=== PATIENT | female | born 1945 | race Caucasian/White ===

== ENCOUNTER 2018-07-25 10:51 | Outpatient (CLI) | payer MEDICARE, SELFPAY ==
--- NOTE | 2018-07-25 11:21 | DI.RAD_ITS ---
SYMPTOMS/DIAGNOSIS: PERSISTENT LT LOW BACK PAIN, PT DIDN'T HELP, ? SCOLIOSIS, ? OA LUMBAR SPINE: AP, lateral and bilateral oblique views. There are five lumbar type vertebral bodies. No spondylolysis or spondylolisthesis is seen. There is a left convex curvature of the lumbar spine centered at L 3. There is disc space narrowing at L 2 - 3, L 3 - 4 and L 5 - S 1. Vacuum discs are seen at L 2 - 3 and L 3 - 4. Degenerative changes of the facets are seen throughout the lumbar spine. No acute fractures or subluxations are seen. IMPRESSION: Moderate degenerative changes in the lumbar spine.
== END 2018-07-25 11:11 ==
PROVIDERS: PCP Nurse Practitioner Family; Visit Provider Nurse Practitioner Family
DX: M54.5 Low back pain (principal); M51.37 Other intervertebral disc degeneration, lumbosacral region
CPT/HCPCS: 72110

== ENCOUNTER 2018-09-04 11:51 | Outpatient (CLI) | payer MEDICARE, SELFPAY ==
[2018-09-04 13:02] LABS: Anion Gap 4.9 mmol/L (3-11); BUN 37 mg/dL (7-18); CO2 34.1 mmol/L (21.0-32.0); CREATININE 1.99 mg/dL (0.55-1.02); Calcium 8.9 mg/dL (8.5-10.1); Chloride 106 mmol/L (98-107); Glucose 86 mg/dL (70-100); Potassium 4.6 mmol/L (3.5-5.1); Sodium 145 mmol/L (136-145)
== END 2018-09-04 12:11 ==
PROVIDERS: PCP Nurse Practitioner Family; Visit Provider Nurse Practitioner Family
DX: F32.9 Major depressive disorder, single episode, unspecified (principal); N18.9 Chronic kidney disease, unspecified; R73.01 Impaired fasting glucose; E78.5 Hyperlipidemia, unspecified; E05.90 Thyrotoxicosis, unspecified without thyrotoxic crisis or storm
CPT/HCPCS: 36415; 80048

== ENCOUNTER 2018-09-20 14:55 | Outpatient (REF) | payer MEDICARE, SELFPAY ==
[2018-09-20 19:34] LABS: COMMENT (LAB VIEW ONLY) 144.31 mg/dL; Microalb ug/mg Crea 9.2 ug/mg Cr
== END 2018-09-20 15:15 ==
LOC: LBN 14:55
PROVIDERS: PCP Nurse Practitioner Family; Visit Provider Nurse Practitioner Family
DX: R30.0 Dysuria (principal); N18.9 Chronic kidney disease, unspecified
CPT/HCPCS: 82043; 82570; 87086

== ENCOUNTER 2019-02-28 11:53 | Outpatient (CLI) | payer MEDICARE, SELFPAY ==
[2019-02-28 12:31] LABS: Absolute Basophil Count 0.04 k/cumm (0.0-0.2); Absolute Eosinophil Count 0.25 k/cumm (0.0-0.7); Absolute Lymphocyte Count 1.11 k/cumm (1.2-3.4); Absolute Monocyte Count 0.35 k/cumm (0.11-0.7); Absolute Neutrophil Count 2.15 k/cumm (1.2-6.7); Eosinophils % 6.4; HCT 40.6 % (36.0-46.0); HGB 12.4 g/dL (12.0-15.5); Lymphocytes % 28.5; Mean Corp. HGB Concentration 30.5 g/dL (32.0-36.0); Mean Corpuscular Hemoglobin 31.7 pg (27.0-33.0); Mean Corpuscular Volume 103.8 fL (80-95); Mean Platelet Volume 9.8 fL (8.0-11.0); Neutrophils % 55.1; Platelet Count 160 x1000/uL (130-400); RBC 3.91 m/cumm (4.00-5.20); RBC Distribution Width 12.4 % (11.7-14.6)
[2019-02-28 13:40] LABS: ALT 20 U/L (12-78); AST 23 U/L (15-37); Albumin 3.6 g/dL (3.4-5.0); Alkaline Phosphatase 93 U/L (46-116); Anion Gap 4.2 mmol/L (3-11); BUN 41 mg/dL (7-18); Bilirubin, Total 1.1 mg/dL (0.2-1.0); CO2 30.8 mmol/L (21.0-32.0); CREATININE 2.18 mg/dL (0.55-1.02); Chloride 106 mmol/L (98-107); Cholesterol 174 mg/dL (50-200); Estimated GFR 22.05 (mL/min/1.73m2); Glucose 87 mg/dL (70-100); HDL Cholesterol 80 mg/dL (40-60); LDL CHOLESTEROL 80 mg/dL (<100); Sodium 141 mmol/L (136-145); TSH (W/Ref FT4) 0.25 uIU/mL (0.358-3.74); Total Protein 6.2 g/dL (6.4-8.2); Triglyceride 53 mg/dL (30-150)
[2019-02-28 13:47] LABS: Potassium 6.5 mmol/L (3.5-5.1)
[2019-02-28 14:04] LABS: FREE T4 1.17 ng/dL (0.76-1.46)
== END 2019-02-28 12:13 ==
PROVIDERS: PCP Nurse Practitioner Family; Visit Provider Nurse Practitioner Family
DX: E78.5 Hyperlipidemia, unspecified (principal); R73.01 Impaired fasting glucose; N18.9 Chronic kidney disease, unspecified; E05.90 Thyrotoxicosis, unspecified without thyrotoxic crisis or storm
CPT/HCPCS: 36415; 80053; 80061; 83721; 83036; 84439; 84443; 85025

== ENCOUNTER 2019-03-04 11:17 | Outpatient (CLI) | payer MEDICARE, SELFPAY ==
[2019-03-04 12:37] LABS: Anion Gap 4.9 mmol/L (3-11); BUN 36 mg/dL (7-18); CO2 31.1 mmol/L (21.0-32.0); CREATININE 1.92 mg/dL (0.55-1.02); Calcium 9.1 mg/dL (8.5-10.1); Chloride 106 mmol/L (98-107); Estimated GFR 25.53 (mL/min/1.73m2); Glucose 122 mg/dL (70-100); Potassium 5.4 mmol/L (3.5-5.1); Sodium 142 mmol/L (136-145)
== END 2019-03-04 11:37 ==
PROVIDERS: PCP Nurse Practitioner Family; Visit Provider Nurse Practitioner Adult Health
DX: E87.5 Hyperkalemia (principal); N17.9 Acute kidney failure, unspecified
CPT/HCPCS: 36415; 80048

== ENCOUNTER 2019-03-11 11:33 | Outpatient (CLI) | payer MEDICARE, SELFPAY ==
[2019-03-11 14:00] LABS: Anion Gap 5.6 mmol/L (3-11); BUN 33 mg/dL (7-18); CO2 30.4 mmol/L (21.0-32.0); CREATININE 1.84 mg/dL (0.55-1.02); Calcium 8.8 mg/dL (8.5-10.1); Chloride 106 mmol/L (98-107); Estimated GFR 26.82 (mL/min/1.73m2); Glucose 92 mg/dL (70-100); Potassium 5.1 mmol/L (3.5-5.1); Sodium 142 mmol/L (136-145)
== END 2019-03-11 11:53 ==
PROVIDERS: PCP Nurse Practitioner Family; Visit Provider Family Medicine
DX: N18.9 Chronic kidney disease, unspecified (principal)
CPT/HCPCS: 36415; 80048

== ENCOUNTER 2019-08-01 15:09 | Inpatient (IN) | payer MEDICARE, SELFPAY ==
[2019-08-01] VITALS (52 sets, daily range): BP systolic 130–155; BP diastolic 73–92; PULSE 67–98; RESP 16–32; TEMP 36.1–37.4; O2SAT 83–100
[2019-08-01 15:24] LABS: Abs Immature Grans 0.01 k/cumm (0.0-0.09); Absolute Basophil Count 0.04 k/cumm (0.0-0.2); Absolute Eosinophil Count 0.09 k/cumm (0.0-0.7); Absolute Lymphocyte Count 0.58 k/cumm (1.2-3.4); Absolute Monocyte Count 0.65 k/cumm (0.11-0.7); Basophils % 0.8; Eosinophils % 1.7; HCT 45.7 % (36.0-46.0); HGB 13.4 g/dL (12.0-15.5); Immature Grans % 0.2; Mean Corp. HGB Concentration 29.3 g/dL (32.0-36.0); Mean Corpuscular Hemoglobin 29.3 pg (27.0-33.0); Mean Platelet Volume 9.1 fL (8.0-11.0); Monocytes % 12.3; Platelet Count 231 x1000/uL (130-400); RBC 4.57 m/cumm (4.00-5.20); RBC Distribution Width 15.2 % (11.7-14.6); White Blood Cell Count 5.27 k/cumm (4.4-10.8)
[2019-08-01] MEDS: Albuterol/Ipratropium 3 ML UPD VIAL UPD ×2 (16:00→22:59)
[2019-08-01] MEDS: methylPREDNISolone SUCC 125 MG VIAL IVP (16:05)
[2019-08-01] MEDS: Furosemide 40 MG/4 ML VIAL IVP (16:30)
[2019-08-01 16:36] LABS: AST 24 U/L (15-37); Albumin 3.3 g/dL (3.4-5.0); Alkaline Phosphatase 91 U/L (46-116); Anion Gap 7.1 mmol/L (3-11); BUN 28 mg/dL (7-18); Bilirubin, Total 0.8 mg/dL (0.2-1.0); CO2 31.9 mmol/L (21.0-32.0); CREATININE 1.74 mg/dL (0.55-1.02); Calcium 8.6 mg/dL (8.5-10.1); Chloride 101 mmol/L (98-107); Estimated GFR 28.52 (mL/min/1.73m2); Glucose 101 mg/dL (70-100); Potassium 4.6 mmol/L (3.5-5.1); Sodium 140 mmol/L (136-145); Total Protein 6.8 g/dL (6.4-8.2)
[2019-08-01 16:41] LABS: Troponin I < 0.05 ng/mL (0.00-0.06)
[2019-08-01 16:49] LABS: ALT 10 U/L (14-59)
--- NOTE | 2019-08-01 17:23 | DI.RAD_ITS ---
EXAM: XR CHEST 2V PA LATERAL INDICATION: sob, leg swelling, r/o chf/pneumonia. COMPARISON: CHEST 2 VIEWS PA,LAT from 07/28/2013 TECHNIQUE: 2D digital imaging was performed. FINDINGS: Examination is compared with most recent film of August 01. There is interval development of bila teral pleural effusions and mild bilateral diffuse intrapulmonary interstitial radiodensities. Findi ngs are consistent with interval development of CHF. IMPRESSION:
[2019-08-01 17:46] LABS: NT-proBNP 16443 pg/mL
--- NOTE | 2019-08-01 17:47 | W.ED.GENAD ---
Discharge Plan Disposition Patient Disposition: [facility] INPATIENT Condition: Stable Discharge Details Chief Complaint: Chest Pain Clinical Impression: Acute exacerbation of CHF (congestive heart failure), Acute exacerbation of chronic obstructive pulmonary disease (COPD) Primary Care Provider: Camila Osuna ED Provider: Tania Escamilla Home Meds and New Rx's Prescriptions: No Action citalopram 10 mg tablet 10 mg PO DAILY Qty: 90 RF: 3 mirtazapine 7.5 mg tablet 7.5 mg PO HS Qty: 90 RF: 3 levalbuterol tartrate [Xopenex HFA] 15 GM HFA aerosol inhaler 1 - 2 puff Inhalation Q4H PRN Qty: 1 RF: 1 lidocaine [LC-5] 45 GM cream 1 film Topical 2-4 times daily PRN Qty: 1 RF: 3 atenolol 25 mg tablet 25 mg PO DAILY Qty: 90 RF: 3 Symbicort 160-4.5 mcg/actuation HFA aerosol inhaler 2 puff Inhalation BID Qty: 3 RF: 3 Incruse Ellipta 62.5 mcg/actuation blister with device 1 inh Inhalation DAILY Qty: 3 RF: 3 atorvastatin 10 mg tablet 10 mg PO DAILY Qty: 90 RF: 3 Medical Decision Making 1545 -- 74yo F who presents to the ED with a complaint of shortness of breath for the past month, worse today and associated with bilateral leg swelling for the past 2 weeks. O2 sat in the 60s at PCP office on room air and increased to 90s on nasal cannula. O2 sat 84% on room air on arrival, increased to mid 90s on 4 L of O2. EKG on arrival notes a rate of 77, sinus, no acute ST ischemic changes. She has scattered wheezing throughout and crackles in the bases bilaterally. She has 2+ pitting lower extremity edema. Patient briefly took off her nasal cannula and her O2 decreased to the 60s, increased back up to 97% on 2 L. Differential diagnosis includes acute CHF, acute COPD, pneumonia, bronchitis. Presentation and history not consistent with PE or dissection. Will place an IV, check screening labs, chest x-ray and give a dose of Lasix, DuoNeb and Solu-Medrol. 1730 -- Labs reviewed and note white blood cell count normal at 5, normal electrolytes, chronic kidney disease, [place] [address]. Chest x-ray notes bilateral increased pleural markings consistent with CHF. Patient admits to some improvement in her shortness of breath. 1800 -- Case discussed with Dr. Castorena-accepts patient for admission. Medical Records Medical records reviewed: Yes I reviewed the patient's medical records. Imaging Data Radiologic Study: Radiologist's impression: XR Chest, 2 Views Exam date and time: 08/01/2019 6:10 PM Clinical history: 74 years old, female; Other: SOB, leg swollen, R/O chf/pneumonia TECHNIQUE: Imaging protocol: XR of the chest Views: 2 views. COMPARISON: CR CHEST 2 VIEWS PA,LAT 07/28/2013 3:20 PM FINDINGS: Lungs: There is hyperinflation lungs and flattening hemidiaphragms which is also present in July 2013 however there is new blunting of the left costophrenic angle and to a lesser extent right costophrenic angle. There are mild diffuse increased interstitial markings bilaterally most prominent at the right lung base. Pleural space: Symmetric apical pleural thickening. Heart/Mediastinum: Unremarkable. No cardiomegaly. Vasculature: Mild atherosclerosis of the thoracic aorta. Bones/joints: Unremarkable. IMPRESSION: Mild pulmonary edema superimposed on COPD Lab Data Lab results reviewed: Yes I reviewed the patient's lab results. Labs: Laboratory Tests Range/Units 08/01/19 08/01/19 08/01/19 15:17 15:17 15:17 WBC (4.4-10.8) k/cumm 5.27 RBC (4.00-5.20) m/cumm 4.57 Hgb (12.0-15.5) g/dL 13.4 Hct (36.0-46.0) % 45.7 MCV (80-95) fL 100.0 H MCH (27.0-33.0) pg 29.3 MCHC (32.0-36.0) g/dL 29.3 L RDW (11.7-14.6) % 15.2 H Plt Count (130-400) x1000/uL 231 MPV (8.0-11.0) fL 9.1 Immature Gran % 0.2 Neutrophils % 74.0 Lymphocytes % 11.0 Monocytes % 12.3 Eosinophils % 1.7 Basophils % 0.8 Absolute Neutrophils (1.2-6.7) k/cumm 3.90 Absolute Lymphocytes (1.2-3.4) k/cumm 0.58 L Absolute Monocytes (0.11-0.7) k/cumm 0.65 Absolute Eosinophils (0.0-0.7) k/cumm 0.09 Absolute Basophils (0.0-0.2) k/cumm 0.04 Sodium (136-145) mmol/L 140 Potassium (3.5-5.1) mmol/L 4.6 Chloride (98-107) mmol/L 101 Carbon Dioxide (21.0-32.0) mmol/L 31.9 Anion Gap (3-11) mmol/L 7.1 BUN (7-18) mg/dL 28 H Creatinine (0.55-1.02) mg/dL 1.74 H Estimated GFR/1.73 m2 (mL/min/1.73m2) 28.52 Glucose (70-100) mg/dL 101 H Calcium (8.5-10.1) mg/dL 8.6 Magnesium (1.8-2.4) mg/dL 2.0 Total Bilirubin (0.2-1.0) mg/dL 0.8 AST (15-37) U/L 24 ALT (14-59) U/L 10 L Alkaline Phosphatase (46-116) U/L 91 Troponin I (0.00-0.06) ng/mL < 0.05 NT-Pro-B Natriuret Pep ( - 299) pg/mL 79583 H Total Protein (6.4-8.2) g/dL 6.8 Albumin (3.4-5.0) g/dL 3.3 L Range/Units 08/01/19 18:50 WBC (4.4-10.8) k/cumm RBC (4.00-5.20) m/cumm Hgb (12.0-15.5) g/dL Hct (36.0-46.0) % MCV (80-95) fL MCH (27.0-33.0) pg MCHC (32.0-36.0) g/dL RDW (11.7-14.6) % Plt Count (130-400) x1000/uL MPV (8.0-11.0) fL Immature Gran % Neutrophils % Lymphocytes % Monocytes % Eosinophils % Basophils % Absolute Neutrophils (1.2-6.7) k/cumm Absolute Lymphocytes (1.2-3.4) k/cumm Absolute Monocytes (0.11-0.7) k/cumm Absolute Eosinophils (0.0-0.7) k/cumm Absolute Basophils (0.0-0.2) k/cumm Sodium (136-145) mmol/L Potassium (3.5-5.1) mmol/L Chloride (98-107) mmol/L Carbon Dioxide (21.0-32.0) mmol/L Anion Gap (3-11) mmol/L BUN (7-18) mg/dL Creatinine (0.55-1.02) mg/dL Estimated GFR/1.73 m2 (mL/min/1.73m2) Glucose (70-100) mg/dL Calcium (8.5-10.1) mg/dL Magnesium (1.8-2.4) mg/dL Total Bilirubin (0.2-1.0) mg/dL AST (15-37) U/L ALT (14-59) U/L Alkaline Phosphatase (46-116) U/L Troponin I (0.00-0.06) ng/mL < 0.05 NT-Pro-B Natriuret Pep ( - 299) pg/mL Total Protein (6.4-8.2) g/dL Albumin (3.4-5.0) g/dL ECG Data Attestation: I personally reviewed and interpreted this ECG (s) as follows: Interpretation: Rate of 77, sinus, T wave inversion in V2, no acute ST elevation or depression. MN 152. QTc 410. QRS 94. HPI General Mode of arrival: ambulatory. Date/Time Provider Initiated Documentation: 08/01/19 15:24. Limitations to Documentation: no limitations. Information obtained by: patient. HPI Narrative: Patient is a 74-year-old female with a history of COPD, CKD, depression, hypertension, hyperlipidemia, hypothyroidism who presents with a complaint of shortness of breath for the past month, worse today. Patient saw her PCP today for the symptoms and was sent to the ER for further evaluation when she was noted to have O2 sats in the 60s on room air. Patient also admits to bilateral lower extremity swelling for the past 2 weeks. She states her shortness of breath is worse with any exertion. She states she has required multiple pillows when sleeping at night for years and states is no different than usual. She states she is not on home oxygen. She denies any known fever but does admit to chills. She does admit to occasional anterior chest pain but denies any at present. She denies any cough but does also admit to decreased p.o. intake. Related Data Home Medications Medication Instructions Recorded Confirmed levalbuterol tartrate [Xopenex HFA] 1 - 2 puff INHALATION Q4H PRN #1 08/16/15 08/01/19 inhaler lidocaine [Lc-5] 1 film TOPICAL 2-4 times daily PRN 06/20/18 08/01/19 #1 tube mirtazapine 7.5 mg tablet 7.5 mg PO HS #90 tab-cap 09/04/18 08/01/19 atenolol 25 mg tablet 25 mg PO DAILY #90 tab-cap 09/20/18 08/01/19 budesonide-formoterol HFA 160 2 puff INHALATION BID #3 inhaler 09/20/18 08/01/19 mcg-4.5 mcg/actuation aerosol inhaler umeclidinium 62.5 mcg/actuation 1 inh INHALATION DAILY #3 each 09/20/18 08/01/19 blister powder for inhalation atorvastatin 10 mg tablet 10 mg PO DAILY #90 tab-cap 01/06/19 08/01/19 citalopram 10 mg tablet 10 mg PO DAILY #90 tab-cap 03/20/19 08/01/19 Previous Rx's Medication Instructions Recorded lidocaine [Lc-5] 1 film TOPICAL 2-4 times daily PRN 06/20/18 #1 tube mirtazapine 7.5 mg tablet 7.5 mg PO HS #90 tab-cap 09/04/18 atenolol 25 mg tablet 25 mg PO DAILY #90 tab-cap 09/20/18 budesonide-formoterol HFA 160 2 puff INHALATION BID #3 inhaler 09/20/18 mcg-4.5 mcg/actuation aerosol inhaler umeclidinium 62.5 mcg/actuation 1 inh INHALATION DAILY #3 each 09/20/18 blister powder for inhalation atorvastatin 10 mg tablet 10 mg PO DAILY #90 tab-cap 03/18/19 citalopram 10 mg tablet 10 mg PO DAILY #90 tab-cap 03/20/19 Allergies Allergy/AdvReac Type Severity Reaction Status Date / Time No Known Allergies Allergy Verified 08/01/19 15:17 General Stated Complaint: Chest Pain JOSE MIGUEL: 2 Review of Systems Review of Systems ROS Unobtainable: All systems reviewed & are unremarkable except as noted in HPI and below Constitutional Constitutional: Reports as per HPI, Denies chills and Denies fever(s) Eyes Eyes: Denies blurry vision ENT Ears, Nose, Mouth, and Throat: Denies dizziness, Denies sore throat and Denies throat swelling Cardiovascular Cardiovascular: Reports chest pain and Reports dyspnea Respiratory Respiratory: Denies cough and Reports dyspnea Gastrointestinal Gastrointestinal: Denies abdominal pain, Denies diarrhea and Denies vomiting Genitourinary Genitourinary: Denies hematuria and Denies dysuria Musculoskeletal Musculoskeletal: Denies back pain and Denies numbness Integumentary/Breasts Skin/Breast: Denies lesions and Denies rash Neurologic Neurologic: Denies dizziness, Denies focal weakness and Denies numbness Allergic/Immunologic Allergic/Immunologic: Denies throat swelling [facility] Medical History Chronic kidney disease (Chronic 10/05/16) 02/2019: low-dose SAWYER-I caused hyperkalemia --> d/c'ed! 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 Heart disease Father , HF at age 77. Heart disease Sister Heart disease During childhood only? Brother , SD at age 75. Heart disease Prostate cancer Brother Heart disease Social History Smoking/Tobacco Use Status: Former Tobacco Use Alcohol Intake: current Alcohol Intake frequency: holidays/special occasions only Drug use: Never Substance use type: does not use Adopted: No Caregiver/Support person: No Foster care: No Household members: none Housing: house Communication Needs: None Pets and animals: No Sexually active: No Current gender identity: female What type of physical activity do you participate in: none Seatbelt use: always Do you feel safe at home: Yes Do you feel safe in your relationship?: Yes Exam Const General: cooperative, healthy appearing and no acute distress HENMT Head: normal to inspection Face and sinus: normal facial exam Eyes General: appearance normal, both eyes and all related structures EOM: EOM intact bilaterally Neck Neck: normal visual inspection and No submandibular swelling Lymphatic: no lymphadenopathy noted Chest Chest: normal inspection of the chest and no tenderness Resp Effort & Inspection: normal respiratory effort and able to speak in complete sentences Auscultation: crackles bilaterally at the base Cardio Rate: regular rate Rhythm: regular rhythm GI Inspection: normal to inspection Palpation: soft, not firm, not rigid and nontender Auscultation: normal bowel sounds Back/Spine/Pelvis Thoracic/Lumbar Spine: thoracic and lumbar spine normal to inspection Skin General skin exam: no rashes or lesions noted Neuro General: alert, awake and oriented x3 Cognition: normal cognition Speech: speech normal Motor: muscle tone normal throughout Sensory Exam: no sensory deficits noted Extrem General: normal to inspection, full ROM, normal capillary refill, no calf tenderness bilaterally and edema Laterality: bilateral (2+ pitting) Psych Appearance: grossly normal Mental Status: mental status grossly normal Speech and Movement: speech and movement normal Affect: normal affect Course Vital Signs Vital signs: Vital Signs Temperature 99.3 F 08/01/19 15:13 Pulse 76 08/01/19 15:13 Respiratory Rate 26 H 08/01/19 15:13 Blood Pressure 151/90 H 08/01/19 15:13 Pulse Oximetry 84 L 08/01/19 15:13 Temperature 99.3 F 08/01/19 15:13 Temperature Source Temporal Artery Scan 08/01/19 15:13 Pulse 76 08/01/19 15:13 Respiratory Rate 26 H 08/01/19 15:13 Respiratory Effort Labored 08/01/19 15:19 Blood Pressure 151/90 H 08/01/19 15:13 Blood Pressure Position Sitting 08/01/19 15:13 Pulse Oximetry 84 L 08/01/19 15:13 Oxygen Delivery Method Nasal Cannula 08/01/19 15:13 Oxygen Flow Rate 3 08/01/19 15:13 Pain Level 0 08/01/19 15:13 Comment 08/01/19 15:13 Lab/Test Results Lab/Test Results: Laboratory Tests Range/Units 08/01/19 08/01/19 08/01/19 15:17 15:17 15:17 WBC (4.4-10.8) k/cumm 5.27 RBC (4.00-5.20) m/cumm 4.57 Hgb (12.0-15.5) g/dL 13.4 Hct (36.0-46.0) % 45.7 MCV (80-95) fL 100.0 H MCH (27.0-33.0) pg 29.3 MCHC (32.0-36.0) g/dL 29.3 L RDW (11.7-14.6) % 15.2 H Plt Count (130-400) x1000/uL 231 MPV (8.0-11.0) fL 9.1 Immature Gran % 0.2 Neutrophils % 74.0 Lymphocytes % 11.0 Monocytes % 12.3 Eosinophils % 1.7 Basophils % 0.8 Absolute Neutrophils (1.2-6.7) k/cumm 3.90 Absolute Lymphocytes (1.2-3.4) k/cumm 0.58 L Absolute Monocytes (0.11-0.7) k/cumm 0.65 Absolute Eosinophils (0.0-0.7) k/cumm 0.09 Absolute Basophils (0.0-0.2) k/cumm 0.04 Sodium (136-145) mmol/L 140 Potassium (3.5-5.1) mmol/L 4.6 Chloride (98-107) mmol/L 101 Carbon Dioxide (21.0-32.0) mmol/L 31.9 Anion Gap (3-11) mmol/L 7.1 BUN (7-18) mg/dL 28 H Creatinine (0.55-1.02) mg/dL 1.74 H Estimated GFR/1.73 m2 (mL/min/1.73m2) 28.52 Glucose (70-100) mg/dL 101 H Calcium (8.5-10.1) mg/dL 8.6 Magnesium (1.8-2.4) mg/dL 2.0 Total Bilirubin (0.2-1.0) mg/dL 0.8 AST (15-37) U/L 24 ALT (14-59) U/L 10 L Alkaline Phosphatase (46-116) U/L 91 Troponin I (0.00-0.06) ng/mL < 0.05 NT-Pro-B Natriuret Pep ( - 299) pg/mL 20653 H Total Protein (6.4-8.2) g/dL 6.8 Albumin (3.4-5.0) g/dL 3.3 L
--- NOTE | 2019-08-01 17:51 | NUR.NOTE ---
Nursing Note: pt noted to have oxygen saturation of 82% on 1lpm. increased o2 to 2lpm.
--- NOTE | 2019-08-01 18:15 | DI.VRAD_ITS ---
PROCEDURE INFORMATION: Exam: XR Chest, 2 Views Exam date and time: 08/01/2019 6:10 PM Clinical history: 74 years old, female; Other: SOB, leg swollen, R/O chf/pneumonia TECHNIQUE: Imaging protocol: XR of the chest Views: 2 views. COMPARISON: CR CHEST 2 VIEWS PA,LAT 07/28/2013 3:20 PM FINDINGS: Lungs: There is hyperinflation lungs and flattening hemidiaphragms which is also present in July 2013 however there is new blunting of the left costophrenic angle and to a lesser extent right costophrenic angle. There are mild diffuse increased interstitial markings bilaterally most prominent at the right lung base. Pleural space: Symmetric apical pleural thickening. Heart/Mediastinum: Unremarkable. No cardiomegaly. Vasculature: Mild atherosclerosis of the thoracic aorta. Bones/joints: Unremarkable. IMPRESSION: Mild pulmonary edema superimposed on COPD Dictated and Authenticated by: Tavo Trivedi MD. Ordering:BRANDIE Marin MD
[2019-08-01 19:25] LABS: Troponin I < 0.05 ng/mL (0.00-0.06)
--- NOTE | 2019-08-01 22:17 | HPE_ITS ---
Date of service: 08/01/19 Time of Service: 22:17 Assessment and Plan Assessment and plan (1) Acute congestive heart failure: Status: Acute Assessment and plan: Continue to cycle her troponin levels. We will continue with IV Lasix and monitor her proBNP and BMP and urine output. We will get a formal echocardiogram on Sunday. It appears that her congestive heart failure is more right-sided heart failure probably due to cor pulmonale from her COPD but we have not excluded possible PE. Qualifiers: Heart failure type: right-sided Qualified Code(s): I50.811 - Acute right heart failure (2) Chronic obstructive lung disease: Status: Chronic Assessment and plan: Treat her COPD with aerosolized bronchodilators and IV corticosteroids. (3) Chronic kidney disease: Status: Chronic Assessment and plan: Monitor renal function as the patient is diuresed. Avoid nephrotoxins. CT angiogram of the chest is contraindicated for her degree of renal failure for that reason we will obtain an ultrasound of her legs in the morning and an echocardiogram on Sunday. Could consider a ventilation/perfusion lung scan but I think is good to be read as indeterminate. Qualifiers: Chronic kidney disease stage: unspecified stage Qualified Code(s): N18.9 - Chronic kidney disease, unspecified (4) Elevated d-dimer: Status: Acute Assessment and plan: Begin heparin drip. Check formal venous duplex ultrasound of her legs in the a.m. History of Present Illness History of Present Illness Chief Complaint: dyspnea Narrative: 74-year-old C aucasian female former smoker with a history of COPD who has not required home oxygen as of yet. Comes in with 2-week history of bilateral leg edema and worsening exertional dyspnea. States about a month ago she thought she had a bad case of flu but denies any cough at that time but just felt fatigued weak and out of breath not associated with any chest pain. Since that time her dyspnea has become progressive to the point where minimal ADL performance we will get her out of breath. She sleeps on 2 pillows regularly but lately has been having paroxysmal nocturnal dyspnea and orthopnea. Is been no fever and no rigors but some subjective feeling of chills. Evaluation emergency room included a routine PA and lateral chest x-ray that showed some mild pulmonary edema superimposed on COPD she has hyperinflated lungs with flattening of the diaphragms and new blunting left costophrenic angle and to a lesser degree the right costophrenic angle with some mild increased interstitial markings. ECG demonstrates sinus rhythm rate of 77 bpm with an RSR prime pattern in V1 and V2 as well as evidence of right atrial enlargement with a P pulmonale pattern in limb leads II, III and aVF. There are no acute ischemic ST or T wave changes. Routine labs including CBC showed a normal white count of 5200 no anemia although she has macrocytic changes with an MCV of 100 normal platelet count. BMP showed elevated BUN and creatinine of 28 and 1.74 which appears to be her baseline. Glucose was elevated at 101. LFTs were normal troponins were negative x3 sets. proBNP is elevated at 16,443. A d- dimer has since been ordered and found to be elevated at 2100. Treatment in the emergency room included a dose of Lasix 40 mg IV along with Solu-Medrol 125 mg IV and DuoNeb aerosol treatments. Patient is being admitted to medical/surgical floor on telemetry for further evaluation of acute onset of CHF superimposed with chronic obstructive pulmonary disease as well as evaluate for possible pulm onary embolus. Bedside acopw-eq-mhdn ultrasound was performed LV function appears to be normal to slightly hyperdynamic. RV appears to be dilated as does the right atrium with some mild RV dysfunction. Lung scan demonstrates an interstitial lung pattern with no consolidation and no pleural effusions. Venous ultrasound of her legs shows compressibility in the common femoral, superficial femoral, deep femoral and greater saphenous, although I could not identify her popliteals. [facility] Medical History Chronic kidney disease (Chronic 10/05/16) 02/2019: low-dose SAWYER-I caused hyperkalemia --> d/c'ed! 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 Heart disease Father , HF at age 77. Heart disease Sister Heart disease During childhood only? Brother , ME at age 75. Heart disease Prostate cancer Brother Heart disease Social History Smoking/Tobacco Use Status: Former Tobacco Use Alcohol Intake: current Alcohol Intake frequency: holidays/special occasions only Drug use: Never Substance use type: does not use Adopted: No Caregiver/Support person: No Foster care: No Household members: none Housing: house Communication Needs: None Pets and animals: No Sexually active: No Current gender identity: female What type of physical activity do you participate in: none Seatbelt use: always Do you feel safe at home: Yes Do you feel safe in your relationship?: Yes Meds Home Medications and Allergies Home Medications Medication Instructions Recorded Confirmed Type levalbuterol tartrate [Xopenex HFA] 1 - 2 puff INHALATION Q4H PRN #1 08/16/15 08/01/19 History inhaler lidocaine [Lc-5] 1 film TOPICAL 2-4 times daily PRN 06/20/18 08/01/19 Rx #1 tube mirtazapine 7.5 mg tablet 7.5 mg PO HS #90 tab-cap 09/04/18 08/01/19 Rx atenolol 25 mg tablet 25 mg PO DAILY #90 tab-cap 09/20/18 08/01/19 Rx budesonide-formoterol HFA 160 2 puff INHALATION BID #3 inhaler 09/20/18 08/01/19 Rx mcg-4.5 mcg/actuation aerosol inhaler umeclidinium 62.5 mcg/actuation 1 inh INHALATION DAILY #3 each 09/20/18 08/01/19 Rx blister powder for inhalation atorvastatin 10 mg tablet 10 mg PO DAILY #90 tab-cap 01/06/19 08/01/19 Rx citalopram 10 mg tablet 10 mg PO DAILY #90 tab-cap 03/20/19 08/01/19 Rx Allergies Allergy/AdvReac Type Severity Reaction Status Date / Time No Known Allergies Allergy Verified 08/01/19 15:17 Exam Const General: cooperative, no acute distress and well groomed Nutritional Appearance: average body habitus Orientation: alert, awake and oriented x3 [facility] Head: normal to inspection, no palpable skull fracture, normocephalic and atraumatic Ears: hearing grossly normal bilaterally Face and sinus: normal facial exam Mouth: oral mucosae normal Eyes General: appearance normal, both eyes and all related structures Alignment and Position: alignment normal Periorbital: periorbital findings normal Eyelids: eyelids normal Conjunctivae: conjunctivae normal Sclera: sclerae normal Cornea: corneas normal Pupils: PERRL EOM: EOM intact bilaterally Neck Neck: normal visual inspection, full ROM, no lymphadenopathy, trachea midline, supple and JVD (7 cm) Thyroid: thyroid normal Lymphatic: no lymphadenopathy noted Chest Chest: normal inspection of the chest and normal palpation of entire chest wall Resp Effort & Inspection: normal respiratory effort and able to speak in complete sentences Auscultation: rales bilaterally at the base, no rhonchi, no wheezes and no rubs Tactile Fremitus: tactile fremitus absent Cardio Jugular venous pressure: JVD elevated and to the level of the angle of the jaw Palpation: normal PMI Rate: regular rate Rhythm: regular rhythm Heart Sounds: S1 normal, S2 normal, abnormal opening sounds loud S2, gallop S3 gallop, no murmurs and no rubs Pulses: normal peripheral pulses GI Inspection: normal to inspection Palpation: soft and hepatomegaly Percussion: normal to percussion Auscultation: normal bowel sounds Skin Rashes: other (Bilateral stasis dermatitis changes over both pretibial surfaces) Neuro General: alert, awake, oriented x3, moves all extremities and no focal motor deficits Cranial Nerves: CN's II-XI intact bilaterally and EOM intact bilaterally Cognition: normal cognition Speech: speech normal Motor: muscle tone normal throughout, strength 5/5 throughout and no movement abnormalities noted Sensory Exam: no sensory deficits noted Extrem General: full ROM, normal capillary refill, no calf tenderness and edema Laterality: bilateral (3+) Right lower extremity: edema (up to the thigh) Details: pitting and 3+ Left lower extremity: edema (up to the thigh) Details: pitting and 3+ Psych Appearance: grossly normal and well kempt Mental Status: mental status grossly normal Speech and Movement: speech and movement normal Mood: congruent mood Affect: normal affect Attitude: cooperative Thought Process: normal Thought Content: normal Insight: insight good Judgment: judgment good Results Imaging Chest x-ray: image reviewed (IMPRESSION: Mild pulmonary edema superimposed on COPD Dictated and Authenticated by: Tavo Trivedi MD.) EKG: image reviewed Labs Result diagrams: 08/01/19 15:17 08/01/19 15:17 Labs: Laboratory Results - last 24 hr 08/01/19 08/01/19 08/01/19 15:17 15:17 15:17 WBC 5.27 RBC 4.57 Hgb 13.4 Hct 45.7 MCV 100.0 H MCH 29.3 MCHC 29.3 L RDW 15.2 H Plt Count 231 MPV 9.1 Immature Gran % 0.2 Neutrophils % 74.0 Lymphocytes % 11.0 Monocytes % 12.3 Eosinophils % 1.7 Basophils % 0.8 Absolute Neutrophils 3.90 Absolute Lymphocytes 0.58 L Absolute Monocytes 0.65 Absolute Eosinophils 0.09 Absolute Basophils 0.04 Sodium 140 Potassium 4.6 Chloride 101 Carbon Dioxide 31.9 Anion Gap 7.1 BUN 28 H Creatinine 1.74 H Estimated GFR/1.73 m2 28.52 Glucose 101 H Calcium 8.6 Magnesium 2.0 Total Bilirubin 0.8 AST 24 ALT 10 L Alkaline Phosphatase 91 Troponin I < 0.05 NT-Pro-B Natriuret Pep 97749 H Total Protein 6.8 Albumin 3.3 L 08/01/19 18:50 WBC RBC Hgb Hct MCV MCH MCHC RDW Plt Count MPV Immature Gran % Neutrophils % Lymphocytes % Monocytes % Eosinophils % Basophils % Absolute Neutrophils Absolute Lymphocytes Absolute Monocytes Absolute Eosinophils Absolute Basophils Sodium Potassium Chloride Carbon Dioxide Anion Gap BUN Creatinine Estimated GFR/1.73 m2 Glucose Calcium Magnesium Total Bilirubin AST ALT Alkaline Phosphatase Troponin I < 0.05 NT-Pro-B Natriuret Pep Total Protein Albumin Last Vital Signs Temp 37.4 C 08/01/19 21:34 Pulse 78 08/01/19 21:34 Resp 22 08/01/19 21:34 BP 155/90 H 08/01/19 21:34 Pulse Ox 93 L 08/01/19 21:34
[2019-08-01] MEDS: Mirtazapine 15 MG TAB 7.5 MG PO (22:57)
[2019-08-01] MEDS: methylPREDNISolone SUCC 125 MG VIAL 60 MG IVP (23:32)
[2019-08-01] MEDS: Normal Saline Flush 10 ML SYR IVP (23:33)
[2019-08-01 23:50] LABS: Troponin I < 0.05 ng/mL (0.00-0.06)
[2019-08-02] VITALS (18 sets, daily range): BP systolic 101–122; BP diastolic 62–73; PULSE 70–87; RESP 2–22; TEMP 36–37.4; O2SAT 91–95
[2019-08-02] MEDS: Enoxaparin 30 MG/0.3 ML SYR SC
[2019-08-02 01:01] LABS: D-Dimer 2144 ng/mlFEU (<500)
[2019-08-02 02:15] LABS: INR 1.2 (0.9-1.1); Prothrombin Time 11.6 sec (9.3-11.0)
[2019-08-02] MEDS: Normal Saline Flush 10 ML SYR IVP ×4 (02:41→15:42)
[2019-08-02] MEDS: Albuterol/Ipratropium 3 ML UPD VIAL UPD ×4 (03:29→22:46)
--- NOTE | 2019-08-02 07:00 | DI.US_ITS ---
EXAM: US EXTREMITY VENOUS BI CLINICAL HISTORY: bilateral leg edema, dyspnea, hypoxemia, d-dimer. TECHNIQUE: Ultrasound performed using standard protocol. COMPARISON: RENAL ULTRASOUND(P) from 12/14/2016 FINDINGS: Duplex venous ultrasound of both lower extremities was performed. Deep veins are freely compressible throughout and there is no visible thrombus. IMPRESSION: Examination is negative for DVT both lower extremities.
[2019-08-02 07:07] LABS: Abs Immature Grans 0.03 k/cumm (0.0-0.09); Absolute Lymphocyte Count 0.21 k/cumm (1.2-3.4); Absolute Monocyte Count 0.15 k/cumm (0.11-0.7); Absolute Neutrophil Count 2.77 k/cumm (1.2-6.7); HCT 45.9 % (36.0-46.0); HGB 13.3 g/dL (12.0-15.5); Immature Grans % 0.9; Lymphocytes % 6.6; Mean Corpuscular Hemoglobin 29.6 pg (27.0-33.0); Mean Corpuscular Volume 102.2 fL (80-95); Mean Platelet Volume 9.3 fL (8.0-11.0); Monocytes % 4.7; Neutrophils % 87.8; Platelet Count 221 x1000/uL (130-400); RBC 4.49 m/cumm (4.00-5.20); RBC Distribution Width 15.3 % (11.7-14.6); White Blood Cell Count 3.16 k/cumm (4.4-10.8)
[2019-08-02 07:23] LABS: Iron 21 ug/dL (50-175); Total Iron Binding Capacity 320 ug/dL (250-450); Transferrin Sat 7 % (15-50)
[2019-08-02 07:31] LABS: Anion Gap 1.1 mmol/L (3-11); BUN 33 mg/dL (7-18); CO2 36.9 mmol/L (21.0-32.0); Calcium 8.3 mg/dL (8.5-10.1); Chloride 103 mmol/L (98-107); Estimated GFR 25.77 (mL/min/1.73m2); Glucose 195 mg/dL (70-100); Magnesium 2.1 mg/dL (1.8-2.4); NT-proBNP 16918 pg/mL; Potassium 5.1 mmol/L (3.5-5.1); Sodium 141 mmol/L (136-145); TSH (W/Ref FT4) 0.11 uIU/mL (0.36-3.74)
[2019-08-02 07:50] LABS: Folate 4.9 ng/mL (8.6-20.0); Vitamin B12 1184 pg/mL (193-986)
[2019-08-02 08:04] LABS: FREE T4 1.22 ng/dL (0.76-1.46)
[2019-08-02] MEDS: Pantoprazole 40 MG TABCR PO (08:12)
[2019-08-02] MEDS: methylPREDNISolone SUCC 125 MG VIAL 60 MG IVP ×3 (08:14→23:18)
[2019-08-02] MEDS: Atorvastatin 10 MG TAB PO (08:25)
[2019-08-02] MEDS: Citalopram 10 MG TAB PO (08:25)
[2019-08-02] MEDS: Atenolol 25 MG TAB PO (08:25)
[2019-08-02] MEDS: Furosemide 40 MG/4 ML VIAL IVP ×2 (08:26→15:41)
[2019-08-02] MEDS: Umeclidinium 7 CAP INHALER 1 CAP IH (09:40)
[2019-08-02] MEDS: Budesonide/Formoterol 160/4.5 6 GM 60 PUFF INH IH ×2 (09:40→19:33)
[2019-08-02 09:55] LABS: PTT Activated 138.7 sec (21.0-31.4)
[2019-08-02 10:10] LABS: Ferritin 32 ng/mL (8-388)
--- NOTE | 2019-08-02 11:20 | DI.VRAD_ITS ---
PROCEDURE INFORMATION: Exam: US Duplex Lower Extremity Veins Exam date and time: 08/02/2019 11:05 AM Clinical history: 74 years old, female; Edema, localized; Lower extremity, bilateral; Patient HX: Bilateral leg edema, dyspnea, hypoxemia, elev d-dimer at 2144 TECHNIQUE: Imaging protocol: Real-time duplex ultrasound of the Lower Extremities with 2-D garber scale, color Doppler flow and spectral waveform analysis with image documentation. Complete exam focused on the bilateral lower extremity veins. COMPARISON: No relevant prior studies available. FINDINGS: Right deep veins: Unremarkable. The common femoral, femoral, proximal profunda femoral and popliteal veins are patent without thrombus. Normal Doppler waveforms. Normal compressibility and/or augmentation response. The posterior tibial vein in the calf is somewhat obscured, but patent as seen. Right superficial veins: Saphenofemoral junction is patent without thrombus. Left deep veins: Unremarkable. The common femoral, femoral, proximal profunda femoral and popliteal veins are patent without thrombus. Normal Doppler waveforms. Normal compressibility and/or augmentation response. The posterior tibial vein in the calf is patent as well. Left superficial veins: Saphenofemoral junction is patent without thrombus. Soft tissues: There is subcutaneous edema in the calves and ankles. IMPRESSION: No deep venous thrombus demonstrated in either lower extremity. Dictated and Authenticated by: Tavo Villela MD. [facility] Nate Gurrola MD
--- NOTE | 2019-08-02 12:56 | PHARADMIT ---
Admission Pharmacy Clinical Review acute CHF/ COPD exacerbation Code Status Full Code Current Weight Wgt-71.3 kg Renally Cleared and Narrow Therapeutic Index Meds CrCl~ 24.8 mL/min Med-OK QTc Value / Action Taken QTc- 410 Celexa, Lasix,Protonix, Mirtazapine BP Control, Fever BP-122/73 Tmax- 37.3C Electrolytes reviewed Na-141 K+5.1 Mag-2.1 DVT Prophylaxis Heparin drip Opiate Usage / Scheduled Bowel Regimen Ordered No Yes Plt/SCr for Heparin / Enoxaparin Plts-221 SCr-1.90 INR for Warfarin inr-1.2 H/H stable, WBC/Bands H&H- 13.3/45.9 WBC-3.16 Antibiotic appropriateness none Cultures and Sensitivities none Surgical ABX d/c within 24 hr na DM control / Insulin Dosing BG-195 Heart Failure (Check EF%) (SAWYER's, B-Block, Diuretics) Atenolol, Lasix IV to PO Switch No Home Meds Reviewed Yes Home Meds Not Ordered Lisinopril Comments
--- NOTE | 2019-08-02 16:25 | PGE_ITS ---
Date of Service Date of service: 08/02/19 Time of Service: 16:26 Assessment and Plan Assessment and plan (1) Acute congestive heart failure: Status: Acute Assessment and plan: Appears to be new onset CHF in patient with potential pulmonary hypertension based on her history of COPD. Evidence of significant lower extremity edema with also likely confirm right-sided heart failure. Pocus at time of admission also supports this. ?Continue IV twice daily furosemide, and monitor daily weights and renal function carefully. ?Check ECHO. Unfortunately the there is no access to echocardiograms over the weekend. Plan will be to diuresis, monitor symptoms, and check imaging on Sunday. ?Further treatment options pending results of the above. Qualifiers: Heart failure type: right-sided Qualified Code(s): I50.811 - Acute right heart failure (2) Chronic obstructive lung disease: Status: Chronic Assessment and plan: Apparent wheezing at time of admission, which may have been cardiac in origin. Regardless patient remains on steroids and nebs. Plan on a quick steroid taper pending pulmonary exam tomorrow. Continue current regimen for now. (3) Chronic kidney disease: Status: Chronic Assessment and plan: Monitor renal function carefully given active attempts of diuresis. Renally dose medications when appropriate, and avoid nephrotoxins. Qualifiers: Chronic kidney disease stage: unspecified stage Qualified Code(s): N18.9 - Chronic kidney disease, unspecified (4) Elevated d-dimer: Status: Acute Assessment and plan: Elevated d-dimer at time of admission noted. Lower extremity edema has been chronic, equal, symmetric, and bilateral. Lower extremity Dopplers also confirm lack of DVT, and Wells criteria calculated to be 0. Will discontinue heparin gtt and maintain patient on DVT prophylaxis only. (5) DVT prophylaxis: Status: Acute Assessment and plan: SC heparin given CKD. (6) Advance directive on file: Status: Acute Assessment and plan: Full CODE STATUS confirmed. Subjective Subjective Interval history since last seen: 74-year-old woman with a prior history of COPD, admitted from [facility] Emergency Department on 08/01 with a diagnosis of likely new onset CHF. Mrs. Arita has a past Medical History significant for tobacco abuse and COPD, CKD, Depression, and dyslipidemia. Her history also includes Hyperthyroidism, and TSH was confirmed as low with a normal FT4. The patient presented to the ED with reported 2 week history of bilateral LE edema, worsening fatigue, and SULLIVAN. Evaluation in the ED showed evidence of mild pulmonary edema superimposed on COPD by CXR, negative troponin, and significantly elevated BNP. Patient was given IV Lasix, and referred for admission for further evaluation and treatment. The patient appears slightly improved this morning. Overnight POCUS confirmed likely ANIYAH and RV Dysfunction, with preserved LVEF. As DDimer was elevated the patient was heparinized as well, but with LE Dopplers negative for DVTs. No overnight events reported. Remains afebrile. Exam Narrative Exam Narrative: General: Patient appears comfortable, AAOX3, NAD Neck: Supple CV: Regular, nontachycardic, S1S2, 3/6 LLSB murmur Pulmonary: bibasilar crackles, otherwise clear. No wheezing. Abdomen: + Bowel Sounds, soft, nontender, nondistended Vascular: 3+ b/l lower extremity edema Psych: Normal mood and affect. Objective Objective Clinical Data: Abnormal lab results 08/01/19 08/01/19 08/02/19 Range/Units 15:17 15:17 00:20 WBC (4.4-10.8) k/cumm MCV (80-95) fL MCHC (32.0-36.0) g/dL RDW (11.7-14.6) % Absolute Lymphocytes (1.2-3.4) k/cumm PT 11.6 H (9.3-11.0) sec INR 1.2 H (0.9-1.1) APTT (21.0-31.4) sec D-Dimer 2144 H (<500) ng/mlFEU Carbon Dioxide (21.0-32.0) mmol/L Anion Gap (3-11) mmol/L BUN 28 H (7-18) mg/dL Creatinine 1.74 H (0.55-1.02) mg/dL Glucose 101 H (70-100) mg/dL Calcium (8.5-10.1) mg/dL Iron (50-175) ug/dL Transferrin % Sat (15-50) % ALT 10 L (14-59) U/L NT-Pro-B Natriuret Pep 75466 H ( - 299) pg/mL Albumin 3.3 L (3.4-5.0) g/dL Vitamin B12 (193-986) pg/mL Folate (8.6-20.0) ng/mL TSH (0.36-3.74) uIU/mL 08/02/19 08/02/19 08/02/19 Range/Units 06:55 06:55 06:55 WBC 3.16 L D (4.4-10.8) k/cumm MCV 102.2 H (80-95) fL MCHC 29.0 L (32.0-36.0) g/dL RDW 15.3 H (11.7-14.6) % Absolute Lymphocytes 0.21 L (1.2-3.4) k/cumm PT (9.3-11.0) sec INR (0.9-1.1) APTT (21.0-31.4) sec D-Dimer (<500) ng/mlFEU Carbon Dioxide 36.9 H (21.0-32.0) mmol/L Anion Gap 1.1 L (3-11) mmol/L BUN 33 H (7-18) mg/dL Creatinine 1.90 H (0.55-1.02) mg/dL Glucose 195 H D (70-100) mg/dL Calcium 8.3 L (8.5-10.1) mg/dL Iron 21 L (50-175) ug/dL Transferrin % Sat 7 L (15-50) % ALT (14-59) U/L NT-Pro-B Natriuret Pep 93373 H ( - 299) pg/mL Albumin (3.4-5.0) g/dL Vitamin B12 (193-986) pg/mL Folate (8.6-20.0) ng/mL TSH 0.11 L (0.36-3.74) uIU/mL 08/02/19 08/02/19 Range/Units 06:55 08:55 WBC (4.4-10.8) k/cumm MCV (80-95) fL MCHC (32.0-36.0) g/dL RDW (11.7-14.6) % Absolute Lymphocytes (1.2-3.4) k/cumm PT (9.3-11.0) sec INR (0.9-1.1) APTT 138.7 H* D (21.0-31.4) sec D-Dimer (<500) ng/mlFEU Carbon Dioxide (21.0-32.0) mmol/L Anion Gap (3-11) mmol/L BUN (7-18) mg/dL Creatinine (0.55-1.02) mg/dL Glucose (70-100) mg/dL Calcium (8.5-10.1) mg/dL Iron (50-175) ug/dL Transferrin % Sat (15-50) % ALT (14-59) U/L NT-Pro-B Natriuret Pep ( - 299) pg/mL Albumin (3.4-5.0) g/dL Vitamin B12 1184 H (193-986) pg/mL Folate 4.9 L (8.6-20.0) ng/mL TSH (0.36-3.74) uIU/mL Vital Signs Temperature 36.0 C L 08/02/19 15:30 Temperature Source Tympanic 08/02/19 15:30 Pulse 70 08/02/19 15:30 Pulse Rhythm Regular 08/02/19 07:49 Pulse 68 08/01/19 21:00 Respiratory Rate 18 08/02/19 15:30 Respiratory Effort Non-Labored 08/02/19 07:49 Respiratory Depth Normal 08/02/19 07:49 Respiratory Pattern Normal 08/02/19 07:49 Blood Pressure 114/70 08/02/19 15:30 Blood Pressure Mean 107 08/01/19 18:46 Blood Pressure Position Sitting 08/01/19 15:13 Pulse Oximetry 94 L 08/02/19 15:30 Oxygen Delivery Method Nasal Cannula 08/02/19 15:30 Oxygen Flow Rate 2 08/02/19 15:30 Pain Level 0 08/02/19 15:30 Comment 08/01/19 15:13 Intake & Output 08/01/19 08/02/19 08/02/19 23:59 11:59 23:59 Intake Total 367.2 / 647.2 280 / 647.2 Output Total 550 / 550 500 / 500 Balance -530 / -530 -132.8 / 147.2 280 / 147.2 Weight 69.5 kg 71.3 kg Intake: IV 127.2 / 167.2 40 / 167.2 Oral 240 / 480 240 / 480 Output: Urine 550 / 550 500 / 500 Other: Urine Color Pale Yellow Yellow Yellow Urine Appearance Clear Clear Clear Urine Odor None Normal Normal Comment Pt voided in toilet and missed hat. Urine appeared clear and yellow. No measurement. Voiding Methods Bedside Commode Bedside Commode Toilet Laboratory Results WBC 3.16 k/cumm (4.4-10.8) L D 08/02/19 06:55 RBC 4.49 m/cumm (4.00-5.20) 08/02/19 06:55 Hgb 13.3 g/dL (12.0-15.5) 08/02/19 06:55 Hct 45.9 % (36.0-46.0) 08/02/19 06:55 MCV 102.2 fL (80-95) H 08/02/19 06:55 MCH 29.6 pg (27.0-33.0) 08/02/19 06:55 MCHC 29.0 g/dL (32.0-36.0) L 08/02/19 06:55 RDW 15.3 % (11.7-14.6) H 08/02/19 06:55 Plt Count 221 x1000/uL (130-400) 08/02/19 06:55 MPV 9.3 fL (8.0-11.0) 08/02/19 06:55 Immature Gran % 0.9 08/02/19 06:55 Neutrophils % 87.8 08/02/19 06:55 Lymphocytes % 6.6 08/02/19 06:55 Monocytes % 4.7 08/02/19 06:55 Eosinophils % 0.0 08/02/19 06:55 Basophils % 0.0 08/02/19 06:55 Absolute Neutrophils 2.77 k/cumm (1.2-6.7) 08/02/19 06:55 Absolute Lymphocytes 0.21 k/cumm (1.2-3.4) L 08/02/19 06:55 Absolute Monocytes 0.15 k/cumm (0.11-0.7) 08/02/19 06:55 Absolute Eosinophils 0.00 k/cumm (0.0-0.7) 08/02/19 06:55 Absolute Basophils 0.00 k/cumm (0.0-0.2) 08/02/19 06:55 PT 11.6 sec (9.3-11.0) H 08/02/19 00:20 INR 1.2 (0.9-1.1) H 08/02/19 00:20 APTT 138.7 sec (21.0-31.4) H* D 08/02/19 08:55 D-Dimer 2144 ng/mlFEU (<500) H 08/02/19 00:20 Sodium 141 mmol/L (136-145) 08/02/19 06:55 Potassium 5.1 mmol/L (3.5-5.1) 08/02/19 06:55 Chloride 103 mmol/L (98-107) 08/02/19 06:55 Carbon Dioxide 36.9 mmol/L (21.0-32.0) H 08/02/19 06:55 Anion Gap 1.1 mmol/L (3-11) L 08/02/19 06:55 BUN 33 mg/dL (7-18) H 08/02/19 06:55 Creatinine 1.90 mg/dL (0.55-1.02) H 08/02/19 06:55 Estimated GFR/1.73 m2 25.77 (mL/min/1.73m2) 08/02/19 06:55 Glucose 195 mg/dL (70-100) H D 08/02/19 06:55 Calcium 8.3 mg/dL (8.5-10.1) L 08/02/19 06:55 Magnesium 2.1 mg/dL (1.8-2.4) 08/02/19 06:55 Iron 21 ug/dL (50-175) L 08/02/19 06:55 TIBC 320 ug/dL (250-450) 08/02/19 06:55 Transferrin % Sat 7 % (15-50) L 08/02/19 06:55 Ferritin 32 ng/mL (8-388) 08/02/19 06:55 Total Bilirubin 0.8 mg/dL (0.2-1.0) 08/01/19 15:17 AST 24 U/L (15-37) 08/01/19 15:17 ALT 10 U/L (14-59) L 08/01/19 15:17 Alkaline Phosphatase 91 U/L (46-116) 08/01/19 15:17 Troponin I < 0.05 ng/mL (0.00-0.06) 08/01/19 23:10 NT-Pro-B Natriuret Pep 66256 pg/mL (-299) H 08/02/19 06:55 Total Protein 6.8 g/dL (6.4-8.2) 08/01/19 15:17 Albumin 3.3 g/dL (3.4-5.0) L 08/01/19 15:17 Vitamin B12 1184 pg/mL (193-986) H 08/02/19 06:55 Folate 4.9 ng/mL (8.6-20.0) L 08/02/19 06:55 TSH 0.11 uIU/mL (0.36-3.74) L 08/02/19 06:55 Free T4 1.22 ng/dL (0.76-1.46) 08/02/19 06:55
--- NOTE | 2019-08-02 19:11 | INITIAL_ITS ---
- If Service Date Differs Date of service: 08/02/19 Time of Service: 19:11 Care Management Initial Assess REASON FOR HOSPITALIZATION:: Acute CHF and COPD PAST MEDICAL HISTORY/PAST SURGICAL HISTORY:: Medical History: CKD (chronic kidney disease). COPD (chronic obstructive pulmonary disease). Depression. Has tried sertraline (didn't work), Wellbutrin (it made me crazy). 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 Prism glasses. Hyperlipidemia (Chronic 12/12/11). Hyperthyroidism. Intention tremor (Chronic 08/29/12). Osteopenia (Chronic 04/30/13) PREVIOUS FUNCTIONAL STATUS/SOCIAL/FAMILY SUPPORTS:: Mayra lives alone in a single family home in [facility]. 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 She still keeps in touch with the boys she cared for. Mayra states she has no family in this country. She does have a couple of life long friends from [place] who live in [place]. They are her contacts for medical issues. Mayra is independent with all care and ADLs but her activity is limited by her COPD. CURRENT FUNCTIONAL STATUS:: Mayra was sitting up in the chair during CM visit. She was very pleasant and engaging and displayed a warm sense of humor. 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 She stated she hopes this will be a short hospital stay. She also noted that the diagnosis of CHF is a new one but not surprising to her as other family members had been diagnosed with the same in the past. ADVANCE DIRECTIVES:: none on file Has patient been provided with information about the portal?: Yes Did the patient sign up for the portal?: No CODE STATUS:: Full Code INSURANCE COVERAGE / FINANCIAL ISSUES:: Medicare. AARP CURRENT HOME/COMMUNITY SERVICES/EQUIPMENT:: none currently PRIMARY CARE PHYSICIAN:: Camila Osuna POTENTIAL DISCHARGE NEEDS:: Follow up with PCP and discharge plan of care PATIENT/FAMILY EDUCATION NEEDS:: Discharge plan, limitations, follow up plan, Ask Me Three. ANTICIPATED BARRIERS TO DISCHARGE:: unavailability of Echocardiogram until Sunday TRANSPORTATION:: via private vehicle PLAN:: Mayra is being treated for COPD and a new diagnosis of CHF. She will be discharged home, possibly with new HH services and/or new home oxygen. CM will continue to provide support to patient and discharge planning needs.
[2019-08-02 19:32] LABS: PTT Activated 88.3 sec (21.0-31.4)
[2019-08-02] MEDS: Mirtazapine 15 MG TAB 7.5 MG PO (22:46)
[2019-08-02] MEDS: Heparin 5,000 UNITS/ML VIAL 5000 UNITS SC (22:47)
[2019-08-03] VITALS (13 sets, daily range): BP systolic 105–125; BP diastolic 57–72; PULSE 71–95; RESP 2–20; TEMP 36.5–37.6; O2SAT 91–99
[2019-08-03] MEDS: Albuterol/Ipratropium 3 ML UPD VIAL UPD ×4 (06:15→21:29)
[2019-08-03] MEDS: Heparin 5,000 UNITS/ML VIAL 5000 UNITS SC ×3 (06:15→21:30)
[2019-08-03 07:46] LABS: Abs Immature Grans 0.02 k/cumm (0.0-0.09); Absolute Lymphocyte Count 0.22 k/cumm (1.2-3.4); Absolute Monocyte Count 0.37 k/cumm (0.11-0.7); Absolute Neutrophil Count 5.79 k/cumm (1.2-6.7); HCT 44.1 % (36.0-46.0); HGB 13.3 g/dL (12.0-15.5); Immature Grans % 0.3; Lymphocytes % 3.4; Mean Corp. HGB Concentration 30.2 g/dL (32.0-36.0); Mean Corpuscular Volume 99.3 fL (80-95); Mean Platelet Volume 9.5 fL (8.0-11.0); Monocytes % 5.8; Neutrophils % 90.5; Platelet Count 227 x1000/uL (130-400); RBC 4.44 m/cumm (4.00-5.20); RBC Distribution Width 15.3 % (11.7-14.6)
[2019-08-03 07:49] LABS: Anion Gap 4.8 mmol/L (3-11); BUN 44 mg/dL (7-18); CO2 38.2 mmol/L (21.0-32.0); CREATININE 2.03 mg/dL (0.55-1.02); Calcium 8.5 mg/dL (8.5-10.1); Chloride 99 mmol/L (98-107); Estimated GFR 23.88 (mL/min/1.73m2); Glucose 131 mg/dL (70-100); Magnesium 1.9 mg/dL (1.8-2.4); Potassium 4.5 mmol/L (3.5-5.1); Sodium 142 mmol/L (136-145)
[2019-08-03] MEDS: Citalopram 10 MG TAB PO (08:08)
[2019-08-03] MEDS: Normal Saline Flush 10 ML SYR IVP ×3 (08:09→20:23)
[2019-08-03] MEDS: Pantoprazole 40 MG TABCR PO (08:09)
[2019-08-03] MEDS: Atenolol 25 MG TAB PO (08:09)
[2019-08-03] MEDS: Furosemide 40 MG/4 ML VIAL IVP ×2 (08:09→15:56)
[2019-08-03] MEDS: methylPREDNISolone SUCC 125 MG VIAL 60 MG IVP ×2 (08:09→15:56)
[2019-08-03] MEDS: Atorvastatin 10 MG TAB PO (08:09)
[2019-08-03] MEDS: Folic Acid 1 MG TAB PO (08:11)
[2019-08-03] MEDS: Umeclidinium 7 CAP INHALER 1 CAP IH (10:00)
[2019-08-03] MEDS: Budesonide/Formoterol 160/4.5 6 GM 60 PUFF INH IH ×2 (10:01→20:23)
--- NOTE | 2019-08-03 10:31 | PDOC.CMPRO ---
- If Service Date Differs Date of service: 08/03/19 Time of Service: 10:31 Care Management Progress Note S/O:Mayra was sitting up in a chair during CM visit. She was pleasant and friendly and engaged well in conversation. Mayra states she continues to feel better and hopes she can be discharged tomorrow after her Echocardiogram. She shared her concerns about not having a will and the challenges of coordinating her financial affairs with relatives who live in [place]. She plans to see an assistant prosecuting attorney who specializes in both real estate law as well as international law since both will be needed to settle her affairs. A: Mayra is a pleasant 74 year old lady admitted to [facility] on 08/01/19 with new onset CHF and COPD exacerbation P: Mayra is being treated for COPD and a new diagnosis of CHF. She will be discharged home, possibly with new services and/or new home oxygen. CM will continue to provide support to patient and discharge planning needs.
--- NOTE | 2019-08-03 16:48 | W.PM.PROGNOT ---
Date of Service Date of service: 08/03/19 Time of Service: 16:48 Assessment and Plan Assessment and plan (1) Acute congestive heart failure: Status: Acute Assessment and plan: Appears to be new onset CHF in patient with potential pulmonary hypertension based on her history of COPD. Evidence of significant lower extremity edema, slowly worsening overtime, will also likely confirm right-sided heart failure. Pocus at time of admission also supports this. ?Continue IV twice daily furosemide, and monitor daily weights and renal function carefully. ?Check ECHO. Unfortunately the there is no access to echocardiograms over the weekend. Plan will be to diuresis, monitor symptoms, and check imaging on Sunday. Weight stable, but measured on standing scale today. ?Further treatment options pending results of the above. Qualifiers: Heart failure type: right-sided Qualified Code(s): I50.811 - Acute right heart failure (2) Chronic obstructive lung disease: Status: Chronic Assessment and plan: Apparent wheezing at time of admission, which may have been cardiac in origin. Discontinue IV Steroids, and initiate on oral prednisone with plans for a quick steroid taper. (3) Chronic kidney disease: Status: Chronic Assessment and plan: Monitor renal function carefully given active attempts of diuresis. Renally dose medications when appropriate, and avoid nephrotoxins. Qualifiers: Chronic kidney disease stage: unspecified stage Qualified Code(s): N18.9 - Chronic kidney disease, unspecified (4) Elevated d-dimer: Status: Acute Assessment and plan: Elevated d-dimer at time of admission noted. Lower extremity edema has been chronic, equal, symmetric, and bilateral. Lower extremity Dopplers also confirm lack of DVT, and Wells criteria calculated to be 0. Discontinued heparin gtt. Continue to maintain patient on DVT prophylaxis only. (5) DVT prophylaxis: Status: Acute Assessment and plan: SC heparin given CKD. (6) Advance directive on file: Status: Acute Assessment and plan: Full CODE STATUS confirmed. Subjective Subjective Interval history since last seen: 74-year-old woman with a prior history of COPD, admitted from [facility] Emergency Department on 08/01 with a diagnosis of likely new onset CHF. Mrs. Arita has a past Medical History significant for tobacco abuse and COPD, CKD, Depression, and dyslipidemia. Her history also includes Hyperthyroidism, and TSH was confirmed as low with a normal FT4. The patient presented to the ED with reported 2 week history of bilateral LE edema, worsening fatigue, and SULLIVAN. Evaluation in the ED showed evidence of mild pulmonary edema superimposed on COPD by CXR, negative troponin, and significantly elevated BNP. Patient was given IV Lasix, and referred for admission for further evaluation and treatment. The patient appears improved again this morning. Initial POCUS at time of admission confirmed likely ANIYAH and RV Dysfunction, with preserved LVEF. As DDimer was elevated the patient was heparinized as well, but with LE Dopplers negative for DVTs. No overnight events reported. Remains afebrile. Exam Narrative Exam Narrative: General: Patient appears comfortable, AAOX3, NAD Neck: Supple CV: Regular, nontachycardic, S1S2, 3/6 LLSB murmur Pulmonary: bibasilar crackles continued, otherwise clear. No wheezing. Abdomen: + Bowel Sounds, soft, nontender, nondistended Vascular: 2+ b/l lower extremity edema Psych: Normal mood and affect. Objective Objective Clinical Data: Abnormal lab results 08/02/19 08/03/19 08/03/19 Range/Units 17:17 06:58 06:58 MCV 99.3 H (80-95) fL MCHC 30.2 L (32.0-36.0) g/dL RDW 15.3 H (11.7-14.6) % Absolute Lymphocytes 0.22 L (1.2-3.4) k/cumm APTT 88.3 H* D (21.0-31.4) sec Carbon Dioxide 38.2 H (21.0-32.0) mmol/L BUN 44 H D (7-18) mg/dL Creatinine 2.03 H (0.55-1.02) mg/dL Glucose 131 H (70-100) mg/dL Vital Signs Temperature 37.1 C 08/03/19 16:04 Temperature Source Tympanic 08/03/19 16:04 Pulse 79 08/03/19 16:04 Pulse Rhythm Regular 08/03/19 09:07 Pulse 68 08/01/19 21:00 Respiratory Rate 18 08/03/19 16:04 Respiratory Effort Non-Labored 08/03/19 09:07 Respiratory Depth Normal 08/03/19 09:07 Respiratory Pattern Normal 08/03/19 09:07 Blood Pressure 114/65 08/03/19 16:04 Blood Pressure Mean 107 08/01/19 18:46 Blood Pressure Position Sitting 08/01/19 15:13 Pulse Oximetry 92 L 08/03/19 16:04 Oxygen Delivery Method Nasal Cannula 08/03/19 16:04 Oxygen Flow Rate 2 08/03/19 16:04 Pain Level 0 08/03/19 16:04 Comment 08/02/19 23:14 Intake & Output 08/02/19 08/03/19 08/03/19 23:59 11:59 23:59 Intake Total 1022.167 / 1389.367 180 / 430 250 / 430 Output Total 550 / 1150 600 / 1150 Balance 1022.167 / 889.367 -370 / -720 -350 / -720 Weight 71.1 kg Intake: IV 102.167 / 229.367 30 / 30 Oral 920 / 1160 150 / 400 250 / 400 Output: Urine 550 / 1150 600 / 1150 Other: Urine Color Yellow Yellow Yellow Urine Appearance Clear Clear Clear Urine Odor Normal Normal Normal Comment Pt voided in toilet and missed hat. Urine appeared clear and yellow. No measurement. Pt voided and missed hat. Denies sx. Lasix 40mg IVP administered at 0800. Voiding Methods Toilet Toilet Toilet Laboratory Results WBC 6.40 k/cumm (4.4-10.8) D 08/03/19 06:58 RBC 4.44 m/cumm (4.00-5.20) 08/03/19 06:58 Hgb 13.3 g/dL (12.0-15.5) 08/03/19 06:58 Hct 44.1 % (36.0-46.0) 08/03/19 06:58 MCV 99.3 fL (80-95) H 08/03/19 06:58 MCH 30.0 pg (27.0-33.0) 08/03/19 06:58 MCHC 30.2 g/dL (32.0-36.0) L 08/03/19 06:58 RDW 15.3 % (11.7-14.6) H 08/03/19 06:58 Plt Count 227 x1000/uL (130-400) 08/03/19 06:58 MPV 9.5 fL (8.0-11.0) 08/03/19 06:58 Immature Gran % 0.3 08/03/19 06:58 Neutrophils % 90.5 08/03/19 06:58 Lymphocytes % 3.4 08/03/19 06:58 Monocytes % 5.8 08/03/19 06:58 Eosinophils % 0.0 08/03/19 06:58 Basophils % 0.0 08/03/19 06:58 Absolute Neutrophils 5.79 k/cumm (1.2-6.7) 08/03/19 06:58 Absolute Lymphocytes 0.22 k/cumm (1.2-3.4) L 08/03/19 06:58 Absolute Monocytes 0.37 k/cumm (0.11-0.7) 08/03/19 06:58 Absolute Eosinophils 0.00 k/cumm (0.0-0.7) 08/03/19 06:58 Absolute Basophils 0.00 k/cumm (0.0-0.2) 08/03/19 06:58 PT 11.6 sec (9.3-11.0) H 08/02/19 00:20 INR 1.2 (0.9-1.1) H 08/02/19 00:20 APTT 88.3 sec (21.0-31.4) H* D 08/02/19 17:17 D-Dimer 2144 ng/mlFEU (<500) H 08/02/19 00:20 Sodium 142 mmol/L (136-145) 08/03/19 06:58 Potassium 4.5 mmol/L (3.5-5.1) 08/03/19 06:58 Chloride 99 mmol/L (98-107) 08/03/19 06:58 Carbon Dioxide 38.2 mmol/L (21.0-32.0) H 08/03/19 06:58 Anion Gap 4.8 mmol/L (3-11) 08/03/19 06:58 BUN 44 mg/dL (7-18) H D 08/03/19 06:58 Creatinine 2.03 mg/dL (0.55-1.02) H 08/03/19 06:58 Estimated GFR/1.73 m2 23.88 (mL/min/1.73m2) 08/03/19 06:58 Glucose 131 mg/dL (70-100) H 08/03/19 06:58 Calcium 8.5 mg/dL (8.5-10.1) 08/03/19 06:58 Magnesium 1.9 mg/dL (1.8-2.4) 08/03/19 06:58 Iron 21 ug/dL (50-175) L 08/02/19 06:55 TIBC 320 ug/dL (250-450) 08/02/19 06:55 Transferrin % Sat 7 % (15-50) L 08/02/19 06:55 Ferritin 32 ng/mL (8-388) 08/02/19 06:55 Total Bilirubin 0.8 mg/dL (0.2-1.0) 08/01/19 15:17 AST 24 U/L (15-37) 08/01/19 15:17 ALT 10 U/L (14-59) L 08/01/19 15:17 Alkaline Phosphatase 91 U/L (46-116) 08/01/19 15:17 Troponin I < 0.05 ng/mL (0.00-0.06) 08/01/19 23:10 NT-Pro-B Natriuret Pep 89476 pg/mL (-299) H 08/02/19 06:55 Total Protein 6.8 g/dL (6.4-8.2) 08/01/19 15:17 Albumin 3.3 g/dL (3.4-5.0) L 08/01/19 15:17 Vitamin B12 1184 pg/mL (193-986) H 08/02/19 06:55 Folate 4.9 ng/mL (8.6-20.0) L 08/02/19 06:55 TSH 0.11 uIU/mL (0.36-3.74) L 08/02/19 06:55 Free T4 1.22 ng/dL (0.76-1.46) 08/02/19 06:55
[2019-08-03] MEDS: Mirtazapine 15 MG TAB 7.5 MG PO (21:30)
[2019-08-04] VITALS (17 sets, daily range): BP systolic 104–141; BP diastolic 58–83; PULSE 59–94; RESP 1–22; TEMP 36.3–37.3; O2SAT 84–97
[2019-08-04] MEDS: Heparin 5,000 UNITS/ML VIAL 5000 UNITS SC ×3 (05:00→22:45)
[2019-08-04] MEDS: Albuterol/Ipratropium 3 ML UPD VIAL UPD ×4 (05:00→22:43)
[2019-08-04 07:43] LABS: Abs Immature Grans 0.01 k/cumm (0.0-0.09); Absolute Lymphocyte Count 0.19 k/cumm (1.2-3.4); Absolute Monocyte Count 0.52 k/cumm (0.11-0.7); Absolute Neutrophil Count 5.76 k/cumm (1.2-6.7); HCT 44.5 % (36.0-46.0); Immature Grans % 0.2; Lymphocytes % 2.9; Mean Corp. HGB Concentration 29.2 g/dL (32.0-36.0); Mean Corpuscular Hemoglobin 29.5 pg (27.0-33.0); Mean Corpuscular Volume 100.9 fL (80-95); Mean Platelet Volume 9.5 fL (8.0-11.0); Neutrophils % 88.9; Platelet Count 211 x1000/uL (130-400); RBC 4.41 m/cumm (4.00-5.20); RBC Distribution Width 15.4 % (11.7-14.6); White Blood Cell Count 6.48 k/cumm (4.4-10.8)
[2019-08-04 07:46] LABS: Anion Gap 2.2 mmol/L (3-11); BUN 50 mg/dL (7-18); CO2 41.8 mmol/L (21.0-32.0); CREATININE 1.86 mg/dL (0.55-1.02); Calcium 8.5 mg/dL (8.5-10.1); Chloride 99 mmol/L (98-107); Estimated GFR 26.41 (mL/min/1.73m2); Glucose 123 mg/dL (70-100); Magnesium 1.9 mg/dL (1.8-2.4); Potassium 4.1 mmol/L (3.5-5.1); Sodium 143 mmol/L (136-145)
--- NOTE | 2019-08-04 08:30 | DI.US_ITS ---
APPROVED REPORT EXAM: Comprehensive 2D, Doppler, and color-flow Echocardiogram Patient Location: In-Patient Room/Bed: 214A Indications: Chest Pain, new CHF Left Ventricle The left ventricle is normal size. The left ventricular systolic function is normal. The left ventricular ejection fraction is within the normal range. There is normal left ventricular wall thickness. There is normal LV segmental wall motion. The left ventricular diastolic function is normal. LVEF is 55-60%. Right Ventricle The right ventricle is normal size. The right ventricular systolic function is normal. Atria The left atrium size is normal. The right atrium size is normal. Aortic Valve The aortic valve is normal in structure. Aortic valve is trileaflet. There is no aortic valvular stenosis. No aortic regurgitation is present. Mitral Valve There is mitral annular calcification. No evidence of mitral valve stenosis. Mild mitral regurgitation. Tricuspid Valve The tricuspid valve is normal in structure. Trace tricuspid regurgitation. Pulmonic Valve Pulmonic valve is not well visualized. Great Vessels The aortic root is normal in size. The IVC is enlarged with less than 50% collapse Pericardium There is no pericardial effusion. There is no pleural effusion. 2D Dimensions IVSd 0.8 cm F: 0.6-1.0 PWd 0.8 cm F: 0.6 - 1.0 LVDd 4.6 cm F: 3.9 - 5.3 LVDs 3.2 cm F: 2.2 - 3.5 Aortic Root 3.2 cm F: 2.7 - 3.3 Left Atrium 3.6 cm F: 2.7 - 3.8 LVOT 1.9 cm (M/F) 1.5-2.5 Ascending Aorta 3.6 cm F: 2.3 - 3.1 LVEF (Zuniga's) 56.4 % F: 54 - 74 LV Volume 56.1 mL F: 46 - 106 LV Volume Index 30.8 mL/m2 F: 29 - 61 FS 30.4 % LV Diastology E/A Ratio 1.3 MED E' 0.1 (<0.07 m/s) LV E/e MED 10.9 (>14) LAT E' 0.1 (<0.1 m/s) LV E/e LAT 10.0 (>14) Aortic Valve LVOT Peak Eduardo. 1.2 m/s LVOT Peak Gr. 5.7 mmHg LVOT Mean Gr. 2.6 mmHg LVOT VTI 0.3 m AoV Peak Eduardo. 1.4 (0.5-1.3 m/s) AoV Mean Eduardo. 0.6 m/s AO VTI 0.3 (0.18-0.25 m) WIL (VTI) 2.4 (2.5-4.5 cm2) Mitral Valve MV E Max Eduardo. 0.9 (0.4-1.3 m/s) MV A Velocity 0.7 (0.4-1.3 m/s) E/A Ratio 1.2 MV Decel. Time 178.0 (160-240 msec) MV PHT 51.7 msec MVA PHT 4.3 cm2 Tricuspid Valve TR P. Velocity 2.2 m/s TR P. Gradient 19.4 mmHg Conclusion Left Ventricle : The left ventricle is normal size. There is normal LV segmental wall motion. LVEF is 55-60%. There is normal left ventricular wall thickness. The left ventricular diastolic function is normal. Right Ventricle : The right ventricle is normal size. The right ventricular systolic function is normal. Atria : The left atrium size is normal. The right atrium size is normal. Aortic Valve : The aortic valve is normal in structure. Aortic valve is trileaflet. There is no aortic valvular stenosis. No aortic regurgitation is present. Mitral Valve : There is mitral annular calcification. Mild mitral regurgitation. No evidence of mitral valve stenosis. Tricuspid Valve : The tricuspid valve is normal in structure. Trace tricuspid regurgitation. IVC: The IVC is dilated with >50% collapse. This corresponds to an RVSP of about 35mmHg Great Vessels : The aortic root is normal in size. Summary: There is no evidence of ischemia on echo.
[2019-08-04] MEDS: Folic Acid 1 MG TAB PO (08:53)
[2019-08-04] MEDS: Citalopram 10 MG TAB PO (08:53)
[2019-08-04] MEDS: predniSONE 20 MG TAB 40 MG PO (08:53)
[2019-08-04] MEDS: Pantoprazole 40 MG TABCR PO (08:54)
[2019-08-04] MEDS: Atorvastatin 10 MG TAB PO (08:54)
[2019-08-04] MEDS: Atenolol 25 MG TAB PO (08:54)
[2019-08-04] MEDS: Budesonide/Formoterol 160/4.5 6 GM 60 PUFF INH IH ×2 (10:13→21:00)
[2019-08-04] MEDS: Umeclidinium 7 CAP INHALER 1 CAP IH (10:14)
[2019-08-04] MEDS: Magnesium Oxide 400 MG TAB PO (10:31)
--- NOTE | 2019-08-04 13:37 | CMPROGNOTE_ITS ---
- If Service Date Differs Date of service: 08/04/19 Time of Service: 13:37 Care Management Progress Note S/O:Mayra was sitting up in a chair during CM visit. She engaged readily in conversation and appeared to be in good spirits, exhibiting her good sense of humor once again. Mayra was disappointed that she has not been discharged yet. She said she feels the need to get home to clean her house and prepare for company. 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 She has not seen him in a very long time and wants her home to be welcoming. Mayra also again shared her concerns about getting her affairs in order. She plans to make a timeline to help her organize. She is anxiously awaiting the results of her echocardiogram. A: Mayra is a pleasant 74 year old lady admitted to [facility] on 08/01/19 with new onset CHF and COPD exacerbation P: Mayra is being treated for COPD and a new diagnosis of CHF. She will be discharged home, possibly with new services and/or new home oxygen. will continue to provide support to patient and discharge planning needs.
[2019-08-04] MEDS: Furosemide 40 MG TAB PO (16:16)
--- NOTE | 2019-08-04 16:45 | CHAPLAIN ---
Mayra was sitting up in a chair when I visited. She talked about wanting to be discharged soon. She has companying arriving on 08/09, someone she has not seen in 40 years, and would like to have her house in order. When I asked if she had family or fiends coming in to visit her, she told me that no one knows I'm here, and she doesn't plan to tell anyone. I gave Mayra a prayer shawl and offered ongoing support.
--- NOTE | 2019-08-04 18:06 | W.PM.PROGNOT ---
Date of Service Date of service: 08/04/19 Time of Service: 18:06 Assessment and Plan Assessment and plan (1) Acute congestive heart failure: Status: Acute Assessment and plan: Appears to be new onset CHF in patient with potential pulmonary hypertension based on her history of COPD. Evidence of significant lower extremity edema, slowly worsening overtime, will also likely confirm right-sided heart failure. Pocus at time of admission also supports this. ?Continue diuretic therapy, but as BUN is starting to climb suspect begining of intravascular depletion. Will change to PO and decrease dose. Continue to monitor daily weights and renal function carefully. Patient is at this time approximately -2L out. ECHO performed and pending. Further treatment options pending results. (2) Chronic obstructive lung disease: Status: Chronic Assessment and plan: Apparent wheezing at time of admission, which may have been cardiac in origin - patient has remained without any evidence of wheezing since the morning after admission. Discontinue steroids today. (3) Chronic kidney disease: Status: Chronic Assessment and plan: Monitor renal function carefully given active attempts of diuresis. Renally dose medications when appropriate, and avoid nephrotoxins. BUN is climbing, but creatinine is remaining stable. Qualifiers: Chronic kidney disease stage: unspecified stage Qualified Code(s): N18.9 - Chronic kidney disease, unspecified (4) Elevated d-dimer: Status: Acute Assessment and plan: Elevated d-dimer at time of admission noted. Lower extremity edema has been chronic, equal, symmetric, and bilateral. Lower extremity Dopplers also confirm lack of DVT, and Wells criteria calculated to be 0. Discontinued heparin gtt. Continue to maintain patient on DVT prophylaxis only. (5) DVT prophylaxis: Status: Acute Assessment and plan: SC heparin given CKD. (6) Advance directive on file: Status: Acute Assessment and plan: Full CODE STATUS confirmed. Subjective Subjective Interval history since last seen: 74-year-old woman with a prior history of COPD, admitted from [facility] Emergency Department on 08/01 with a diagnosis of likely new onset CHF. Mrs. Arita has a past Medical History significant for tobacco abuse and COPD, CKD, Depression, and dyslipidemia. Her history also includes Hyperthyroidism, and TSH was confirmed as low with a normal FT4. The patient presented to the ED with reported 2 week history of bilateral LE edema, worsening fatigue, and SULLIVAN. Evaluation in the ED showed evidence of mild pulmonary edema superimposed on COPD by CXR, negative troponin, and significantly elevated BNP. Patient was given IV Lasix, and referred for admission for further evaluation and treatment. The patient appears improved again this morning. Initial POCUS at time of admission confirmed likely ANIYAH and RV Dysfunction, with preserved LVEF. Official ECHO is performed but pending at this time. As DDimer was elevated the patient was heparinized as well, but with LE Dopplers negative for DVTs her anticoagulation was discontinued. No overnight events reported. Remains afebrile. Exam Narrative Exam Narrative: General: Patient appears comfortable, AAOX3, NAD Neck: Supple CV: Regular, nontachycardic, S1S2, 3/6 LLSB murmur Pulmonary: bibasilar crackles continued but improved, otherwise clear. No wheezing. Abdomen: + Bowel Sounds, soft, nontender, nondistended Vascular: 2+ b/l lower extremity edema, improved Psych: Normal mood and affect. Objective Objective Clinical Data: Abnormal lab results 08/04/19 08/04/19 Range/Units 07:05 07:05 MCV 100.9 H (80-95) fL MCHC 29.2 L (32.0-36.0) g/dL RDW 15.4 H (11.7-14.6) % Absolute Lymphocytes 0.19 L (1.2-3.4) k/cumm Carbon Dioxide 41.8 H (21.0-32.0) mmol/L Anion Gap 2.2 L (3-11) mmol/L BUN 50 H (7-18) mg/dL Creatinine 1.86 H (0.55-1.02) mg/dL Glucose 123 H (70-100) mg/dL Vital Signs Temperature 37.3 C 08/04/19 16:14 Temperature Source Tympanic 08/04/19 16:14 Pulse 78 08/04/19 16:38 Pulse Rhythm Regular 08/04/19 16:00 Pulse 68 08/01/19 21:00 Respiratory Rate 18 08/04/19 16:38 Respiratory Effort Non-Labored 08/04/19 16:00 Respiratory Depth Normal 08/04/19 16:00 Respiratory Pattern Normal 08/04/19 16:00 Blood Pressure 106/58 L 08/04/19 16:14 Blood Pressure Mean 107 08/01/19 18:46 Blood Pressure Position Sitting 08/01/19 15:13 Pulse Oximetry 97 08/04/19 16:38 Oxygen Delivery Method Nasal Cannula 08/04/19 16:29 Oxygen Flow Rate 1 08/04/19 16:29 Pain Level 0 08/04/19 16:14 Comment 08/02/19 23:14 Intake & Output 08/03/19 08/04/19 08/04/19 23:59 11:59 23:59 Intake Total 530 / 710 130 / 370 240 / 370 Output Total 1100 / 1650 1600 / 1600 Balance -570 / -940 -1470 / -1230 240 / -1230 Weight 69.9 kg Intake: IV Oral 490 / 640 120 / 360 240 / 360 Output: Urine 1100 / 1650 1600 / 1600 Other: Urine Color Yellow Yellow Urine Appearance Clear Clear Clear Urine Odor Normal Normal Voiding Methods Toilet Toilet Laboratory Results WBC 6.48 k/cumm (4.4-10.8) 08/04/19 07:05 RBC 4.41 m/cumm (4.00-5.20) 08/04/19 07:05 Hgb 13.0 g/dL (12.0-15.5) 08/04/19 07:05 Hct 44.5 % (36.0-46.0) 08/04/19 07:05 MCV 100.9 fL (80-95) H 08/04/19 07:05 MCH 29.5 pg (27.0-33.0) 08/04/19 07:05 MCHC 29.2 g/dL (32.0-36.0) L 08/04/19 07:05 RDW 15.4 % (11.7-14.6) H 08/04/19 07:05 Plt Count 211 x1000/uL (130-400) 08/04/19 07:05 MPV 9.5 fL (8.0-11.0) 08/04/19 07:05 Immature Gran % 0.2 08/04/19 07:05 Neutrophils % 88.9 08/04/19 07:05 Lymphocytes % 2.9 08/04/19 07:05 Monocytes % 8.0 08/04/19 07:05 Eosinophils % 0.0 08/04/19 07:05 Basophils % 0.0 08/04/19 07:05 Absolute Neutrophils 5.76 k/cumm (1.2-6.7) 08/04/19 07:05 Absolute Lymphocytes 0.19 k/cumm (1.2-3.4) L 08/04/19 07:05 Absolute Monocytes 0.52 k/cumm (0.11-0.7) 08/04/19 07:05 Absolute Eosinophils 0.00 k/cumm (0.0-0.7) 08/04/19 07:05 Absolute Basophils 0.00 k/cumm (0.0-0.2) 08/04/19 07:05 PT 11.6 sec (9.3-11.0) H 08/02/19 00:20 INR 1.2 (0.9-1.1) H 08/02/19 00:20 APTT 88.3 sec (21.0-31.4) H* D 08/02/19 17:17 D-Dimer 2144 ng/mlFEU (<500) H 08/02/19 00:20 Sodium 143 mmol/L (136-145) 08/04/19 07:05 Potassium 4.1 mmol/L (3.5-5.1) 08/04/19 07:05 Chloride 99 mmol/L (98-107) 08/04/19 07:05 Carbon Dioxide 41.8 mmol/L (21.0-32.0) H 08/04/19 07:05 Anion Gap 2.2 mmol/L (3-11) L 08/04/19 07:05 BUN 50 mg/dL (7-18) H 08/04/19 07:05 Creatinine 1.86 mg/dL (0.55-1.02) H 08/04/19 07:05 Estimated GFR/1.73 m2 26.41 (mL/min/1.73m2) 08/04/19 07:05 Glucose 123 mg/dL (70-100) H 08/04/19 07:05 Calcium 8.5 mg/dL (8.5-10.1) 08/04/19 07:05 Magnesium 1.9 mg/dL (1.8-2.4) 08/04/19 07:05 Iron 21 ug/dL (50-175) L 08/02/19 06:55 TIBC 320 ug/dL (250-450) 08/02/19 06:55 Transferrin % Sat 7 % (15-50) L 08/02/19 06:55 Ferritin 32 ng/mL (8-388) 08/02/19 06:55 Total Bilirubin 0.8 mg/dL (0.2-1.0) 08/01/19 15:17 AST 24 U/L (15-37) 08/01/19 15:17 ALT 10 U/L (14-59) L 08/01/19 15:17 Alkaline Phosphatase 91 U/L (46-116) 08/01/19 15:17 Troponin I < 0.05 ng/mL (0.00-0.06) 08/01/19 23:10 NT-Pro-B Natriuret Pep 59200 pg/mL (-299) H 08/02/19 06:55 Total Protein 6.8 g/dL (6.4-8.2) 08/01/19 15:17 Albumin 3.3 g/dL (3.4-5.0) L 08/01/19 15:17 Vitamin B12 1184 pg/mL (193-986) H 08/02/19 06:55 Folate 4.9 ng/mL (8.6-20.0) L 08/02/19 06:55 TSH 0.11 uIU/mL (0.36-3.74) L 08/02/19 06:55 Free T4 1.22 ng/dL (0.76-1.46) 08/02/19 06:55
[2019-08-04] MEDS: Mirtazapine 15 MG TAB 7.5 MG PO (22:44)
[2019-08-05] VITALS (13 sets, daily range): BP systolic 100–121; BP diastolic 55–71; PULSE 65–88; RESP 1–20; TEMP 36.2–37; O2SAT 79–98
[2019-08-05] MEDS: Heparin 5,000 UNITS/ML VIAL 5000 UNITS SC ×3 (05:26→22:26)
[2019-08-05 07:47] LABS: Abs Immature Grans 0.01 k/cumm (0.0-0.09); Absolute Lymphocyte Count 0.47 k/cumm (1.2-3.4); Absolute Monocyte Count 0.82 k/cumm (0.11-0.7); Absolute Neutrophil Count 4.72 k/cumm (1.2-6.7); HCT 42.8 % (36.0-46.0); HGB 12.4 g/dL (12.0-15.5); Immature Grans % 0.2; Lymphocytes % 7.8; Mean Corpuscular Hemoglobin 29.2 pg (27.0-33.0); Mean Corpuscular Volume 100.9 fL (80-95); Mean Platelet Volume 9.4 fL (8.0-11.0); Monocytes % 13.6; Neutrophils % 78.4; Platelet Count 231 x1000/uL (130-400); RBC 4.24 m/cumm (4.00-5.20); RBC Distribution Width 15.6 % (11.7-14.6); White Blood Cell Count 6.02 k/cumm (4.4-10.8)
[2019-08-05] MEDS: Albuterol/Ipratropium 3 ML UPD VIAL UPD ×3 (07:57→22:26)
[2019-08-05] MEDS: Budesonide/Formoterol 160/4.5 6 GM 60 PUFF INH IH ×2 (08:00→19:41)
[2019-08-05] MEDS: Umeclidinium 7 CAP INHALER 1 CAP IH (08:00)
[2019-08-05 08:04] LABS: BUN 52 mg/dL (7-18); CREATININE 1.98 mg/dL (0.55-1.02); Calcium 8.3 mg/dL (8.5-10.1); Chloride 98 mmol/L (98-107); Estimated GFR 24.57 (mL/min/1.73m2); Glucose 90 mg/dL (70-100); Magnesium 1.8 mg/dL (1.8-2.4); Potassium 4.5 mmol/L (3.5-5.1); Sodium 143 mmol/L (136-145)
[2019-08-05 08:05] LABS: Anion Gap -0.00001 mmol/L (3-11); CO2 > 45.0 mmol/L (21.0-32.0)
[2019-08-05] MEDS: Atenolol 25 MG TAB PO (09:09)
[2019-08-05] MEDS: Furosemide 40 MG TAB PO (09:09)
[2019-08-05] MEDS: Pantoprazole 40 MG TABCR PO (09:09)
[2019-08-05] MEDS: Folic Acid 1 MG TAB PO (09:09)
[2019-08-05] MEDS: Atorvastatin 10 MG TAB PO (09:09)
[2019-08-05] MEDS: Citalopram 10 MG TAB PO (09:10)
[2019-08-05 10:26] LABS: Albumin 2.8 g/dL (3.4-5.0)
--- NOTE | 2019-08-05 13:30 | DI.CT_ITS ---
EXAM: CT CHEST WO CLINICAL HISTORY: Persistent Hypoxia TECHNIQUE: CT examination of the chest was performed without contrast administration due to the racheal ent's impaired renal function. COMPARISON: No exams were available for comparison FINDINGS: Images obtained through the upper abdomen show unremarkable appearance of visualized portions of live r, spleen, pancreas, adrenals and kidneys. There are moderate-sized bilateral pleural effusions and there are areas of atelectasis in both lung bases. Small superimposed consolidation not excluded. There are a few well-circumscribed noncalcifi ed intrapulmonary nodules seen bilaterally, the largest in the right lower lobe measuring 5-6 millime ters in diameter. Tracheobronchial tree appears intact. No upper lobe consolidation. Minimal scarr ing noted at a few sites. No gross mediastinal or hilar adenopathy. IMPRESSION: Bilateral pleural effusions and areas of bibasilar atelectasis, small areas of consolidation could be present in the bases but otherwise the lungs are clear. Incidental pulmonary nodules measuring up to 5-6 millimeters in diameter, follow-up LDCT recommended in 6 months.
[2019-08-05 15:33] LABS: Bilirubin Negative (Negative); Blood Negative (Negative); Clarity Clear (Clear); Glucose Negative (Negative); Ketones Negative (Negative); Leukocyte Esterase Negative (Negative); Nitrite Negative (Negative); Urobilinogen 0.2 EU/dL (Up TO 0.2)
--- NOTE | 2019-08-05 15:33 | PDOC.CMPRO ---
- If Service Date Differs Date of service: 08/05/19 Time of Service: 15:33 Care Management Progress Note S/O:Mayra remains acute she did have a CT scan today which per provider shows bilat plural effusions. There is a surgical consult in place to evaluation treatment options. Her BUN and CR did rise today, Lasix has transition to oral lasix. Mayra continues to have an oxygen requirement and may need to be discharged home with new oxygen. A: Mayra is a pleasant 74 year old lady admitted to [facility] on 08/01/19 with new onset CHF and COPD exacerbation P: Mayra is being treated for COPD and a new diagnosis of CHF. She will be discharged home, possibly with new HH services and/or new home oxygen. CM will continue to provide support to patient and discharge planning needs.
--- NOTE | 2019-08-05 19:04 | PGE_ITS ---
Date of Service Date of service: 08/05/19 Time of Service: 19:04 Assessment and Plan Assessment and plan (1) Pleural effusion: Status: Acute Assessment and plan: Initiallyl thought to represent new onset CHF in patient with potential PHTN or RV dysfunction based on hx of COPD, ECHO checked and essentially normal. Evidence of significant lower extremity edema, slowly worsening overtime, with continued abnormal pulmonary exam and hypoxia. Given findings a CT was obtained and showed moderate sized b/l pleural effusions with areas of atelectasis - doubt infiltrates given normal WBC and lack of fever. Also noted incidental pulmonary nodules, only 5-6 mm in diameter. -Consider other differential for diagnosis of effusions and lower extremity edema. Will need to review medication list for any offending agents. Echo has ruled out LV or RV CHF, and urinalysis was checked today and ruled out nephrotic syndrome. No evidence of venous thrombosis by lower extremity ultrasounds, and no history of liver disease. Patient does have a history of renal disease, but this appears to be a chronic and essentially unchanged finding. Also with evidence of potential thyroid dysfunction, with a chronically low TSH and normal free T4 which could represent either subclinical hyperthyroidism or a hot thyroid nodule - in either case does not appear to be a myxedema type picture. -Discussed case with surgery, and Dr. Ashlee Cloud reviewed patient's films. Question was regarding a potential for a diagnostic and potentially therapeutic tap, which surgery did not believe was feasible given the size and location of the fluid. Unsure of the etiology for the patient's symptoms, and appears to be getting intravascularly depleted with current diuretic regimen. May require a very slow approach to her diuresis, with home oxygen therapy. Would also consider evaluation by IR for a potential interventional procedure, and again for both diagnostic and therapeutic purposes. (2) Chronic obstructive lung disease: Status: Chronic Assessment and plan: Despite hypoxia patient continues to have no evidence of wheezing. However, at time of admission she did have evidence of wheezing and was initially treated with steroids. Question if there is any component of her hypoxia than may be COPD driven. For this reason we will initiate on some oral prednisone and monitor. (3) Chronic kidney disease: Status: Chronic Assessment and plan: Monitor renal function carefully given active attempts of diuresis. Renally dose medications when appropriate, and avoid nephrotoxins. BUN is climbing and bicarb is on measurably high on the basis of diuresis, but creatinine is remaining stable. Continue to reduce Lasix dose, now down to once daily oral formulation. Continue to monitor renal function. Qualifiers: Chronic kidney disease stage: unspecified stage Qualified Code(s): N18.9 - Chronic kidney disease, unspecified (4) Elevated d-dimer: Status: Acute Assessment and plan: Elevated d-dimer at time of admission noted. Lower extremity edema has been chronic, equal, symmetric, and bilateral. Lower extremity Dopplers also confirm lack of DVT, and Wells criteria calculated to be 0. Discontinued heparin gtt. Continue to maintain patient on DVT prophylaxis only. (5) DVT prophylaxis: Status: Acute Assessment and plan: SC heparin given CKD. (6) Advance directive on file: Status: Acute Assessment and plan: Full CODE STATUS confirmed. Subjective Subjective Interval history since last seen: 74-year-old woman with a prior history of COPD, admitted from [facility] Emergency Department on 08/01 with a diagnosis of likely new onset CHF. Mrs. Arita has a past Medical History significant for tobacco abuse and COPD, CKD, Depression, and dyslipidemia. Her history also includes Hyperthyroidism, and TSH was confirmed as low with a normal FT4. The patient presented to the ED with reported 2 week history of bilateral LE edema, worsening fatigue, and [place]. Evaluation in the ED showed evidence of mild pulmonary edema superimposed on COPD by CXR, negative troponin, and significantly elevated BNP. Patient was given IV Lasix, and referred for admission for further evaluation and treatment. The patient appears improved again this morning, but not better than prior visit. Evidence of continued weight loss and diuresis despite decrease in diuretic therapy. ECHO was performed and essentially normal, with patient still requiring supplemental O2 and with abnormal exam. Labwork indicating intravascular depletion. Mrs. Arita herself feels like she is nearing her baseline. Remains afebrile. Exam Narrative Exam Narrative: General: Patient appears comfortable, AAOX3, NAD Neck: Supple CV: Regular, nontachycardic, S1S2 Pulmonary: bibasilar crackles continued, otherwise clear. No wheezing. Abdomen: + Bowel Sounds, soft, nontender, nondistended Vascular: 2+ b/l lower extremity edema Psych: Normal mood and affect. Objective Objective Clinical Data: Abnormal lab results 08/05/19 08/05/19 Range/Units 07:00 07:00 MCV 100.9 H (80-95) fL MCHC 29.0 L (32.0-36.0) g/dL RDW 15.6 H (11.7-14.6) % Absolute Lymphocytes 0.47 L (1.2-3.4) k/cumm Absolute Monocytes 0.82 H (0.11-0.7) k/cumm Carbon Dioxide > 45.0 H (21.0-32.0) mmol/L Anion Gap -0.39063 L (3-11) mmol/L BUN 52 H (7-18) mg/dL Creatinine 1.98 H (0.55-1.02) mg/dL Calcium 8.3 L (8.5-10.1) mg/dL Albumin 2.8 L (3.4-5.0) g/dL Vital Signs Temperature 37.0 C 08/05/19 15:30 Temperature Source Tympanic 08/05/19 15:30 Pulse 70 08/05/19 15:30 Pulse Rhythm Regular 08/05/19 17:43 Pulse 68 08/01/19 21:00 Respiratory Rate 16 08/05/19 15:30 Respiratory Effort Non-Labored 08/05/19 17:43 Respiratory Depth Normal 08/05/19 17:43 Respiratory Pattern Normal 08/05/19 17:43 Blood Pressure 102/61 08/05/19 15:30 Blood Pressure Mean 107 08/01/19 18:46 Blood Pressure Position Sitting 08/01/19 15:13 Pulse Oximetry 93 L 08/05/19 15:30 Oxygen Delivery Method Nasal Cannula 08/05/19 15:30 Oxygen Flow Rate 2 08/05/19 15:30 Pain Level 0 08/05/19 15:30 Comment 08/05/19 03:00 Intake & Output 08/04/19 08/05/19 08/05/19 23:59 11:59 23:59 Intake Total 480 / 610 250 / 490 240 / 490 Output Total 600 / 600 Balance 480 / -990 -350 / -110 240 / -110 Weight 68.4 kg Intake: Oral 480 / 600 250 / 490 240 / 490 Output: Urine 600 / 600 Other: Urine Color Light [place] Urine Appearance Clear Clear Clear Urine Odor None Voiding Methods Toilet Laboratory Results WBC 6.02 k/cumm (4.4-10.8) 08/05/19 07:00 RBC 4.24 m/cumm (4.00-5.20) 08/05/19 07:00 Hgb 12.4 g/dL (12.0-15.5) 08/05/19 07:00 Hct 42.8 % (36.0-46.0) 08/05/19 07:00 MCV 100.9 fL (80-95) H 08/05/19 07:00 MCH 29.2 pg (27.0-33.0) 08/05/19 07:00 MCHC 29.0 g/dL (32.0-36.0) L 08/05/19 07:00 RDW 15.6 % (11.7-14.6) H 08/05/19 07:00 Plt Count 231 x1000/uL (130-400) 08/05/19 07:00 MPV 9.4 fL (8.0-11.0) 08/05/19 07:00 Immature Gran % 0.2 08/05/19 07:00 Neutrophils % 78.4 08/05/19 07:00 Lymphocytes % 7.8 08/05/19 07:00 Monocytes % 13.6 08/05/19 07:00 Eosinophils % 0.0 08/05/19 07:00 Basophils % 0.0 08/05/19 07:00 Absolute Neutrophils 4.72 k/cumm (1.2-6.7) 08/05/19 07:00 Absolute Lymphocytes 0.47 k/cumm (1.2-3.4) L 08/05/19 07:00 Absolute Monocytes 0.82 k/cumm (0.11-0.7) H 08/05/19 07:00 Absolute Eosinophils 0.00 k/cumm (0.0-0.7) 08/05/19 07:00 Absolute Basophils 0.00 k/cumm (0.0-0.2) 08/05/19 07:00 PT 11.6 sec (9.3-11.0) H 08/02/19 00:20 INR 1.2 (0.9-1.1) H 08/02/19 00:20 APTT 88.3 sec (21.0-31.4) H* D 08/02/19 17:17 D-Dimer 2144 ng/mlFEU (<500) H 08/02/19 00:20 Sodium 143 mmol/L (136-145) 08/05/19 07:00 Potassium 4.5 mmol/L (3.5-5.1) 08/05/19 07:00 Chloride 98 mmol/L (98-107) 08/05/19 07:00 Carbon Dioxide > 45.0 mmol/L (21.0-32.0) H 08/05/19 07:00 Anion Gap -0.29539 mmol/L (3-11) L 08/05/19 07:00 BUN 52 mg/dL (7-18) H 08/05/19 07:00 Creatinine 1.98 mg/dL (0.55-1.02) H 08/05/19 07:00 Estimated GFR/1.73 m2 24.57 (mL/min/1.73m2) 08/05/19 07:00 Glucose 90 mg/dL (70-100) 08/05/19 07:00 Calcium 8.3 mg/dL (8.5-10.1) L 08/05/19 07:00 Magnesium 1.8 mg/dL (1.8-2.4) 08/05/19 07:00 Iron 21 ug/dL (50-175) L 08/02/19 06:55 TIBC 320 ug/dL (250-450) 08/02/19 06:55 Transferrin % Sat 7 % (15-50) L 08/02/19 06:55 Ferritin 32 ng/mL (8-388) 08/02/19 06:55 Total Bilirubin 0.8 mg/dL (0.2-1.0) 08/01/19 15:17 AST 24 U/L (15-37) 08/01/19 15:17 ALT 10 U/L (14-59) L 08/01/19 15:17 Alkaline Phosphatase 91 U/L (46-116) 08/01/19 15:17 Troponin I < 0.05 ng/mL (0.00-0.06) 08/01/19 23:10 NT-Pro-B Natriuret Pep 33982 pg/mL (-299) H 08/02/19 06:55 Total Protein 6.8 g/dL (6.4-8.2) 08/01/19 15:17 Albumin 2.8 g/dL (3.4-5.0) L 08/05/19 07:00 Vitamin B12 1184 pg/mL (193-986) H 08/02/19 06:55 Folate 4.9 ng/mL (8.6-20.0) L 08/02/19 06:55 TSH 0.11 uIU/mL (0.36-3.74) L 08/02/19 06:55 Free T4 1.22 ng/dL (0.76-1.46) 08/02/19 06:55 Urine Color Yellow (Yellow) 08/05/19 14:00 Urine Clarity Clear (Clear) 08/05/19 14:00 Urine pH 5.0 (5-8) 08/05/19 14:00 Ur Specific [place] 1.010 (1.005-1.025) 08/05/19 14:00 Urine Protein Negative mg/dL (Negative) 08/05/19 14:00 Urine Ketones Negative mg/dL (Negative) 08/05/19 14:00 Urine Blood Negative (Negative) 08/05/19 14:00 Urine Nitrite Negative (Negative) 08/05/19 14:00 Urine Bilirubin Negative (Negative) 08/05/19 14:00 Urine Urobilinogen 0.2 EU/dL (Up TO 0.2) 08/05/19 14:00 Ur Leukocyte Esterase Negative (Negative) 08/05/19 14:00 Urine Glucose Negative mg/dL (Negative) 08/05/19 14:00
[2019-08-05] MEDS: predniSONE 20 MG TAB 40 MG PO (19:41)
[2019-08-05] MEDS: Mirtazapine 15 MG TAB 7.5 MG PO (22:25)
[2019-08-06] VITALS (13 sets, daily range): BP systolic 97–119; BP diastolic 48–70; PULSE 67–78; RESP 1–18; TEMP 36.5–37.4; O2SAT 91–99
[2019-08-06] MEDS: Albuterol/Ipratropium 3 ML UPD VIAL UPD ×4 (03:29→22:45)
[2019-08-06] MEDS: Heparin 5,000 UNITS/ML VIAL 5000 UNITS SC ×2 (06:13→13:53)
[2019-08-06 07:12] LABS: Absolute Lymphocyte Count 0.21 k/cumm (1.2-3.4); Absolute Monocyte Count 0.08 k/cumm (0.11-0.7); Absolute Neutrophil Count 3.55 k/cumm (1.2-6.7); HCT 44.8 % (36.0-46.0); HGB 12.8 g/dL (12.0-15.5); Lymphocytes % 5.5; Mean Corp. HGB Concentration 28.6 g/dL (32.0-36.0); Mean Corpuscular Hemoglobin 28.8 pg (27.0-33.0); Mean Corpuscular Volume 100.9 fL (80-95); Mean Platelet Volume 9.8 fL (8.0-11.0); Monocytes % 2.1; Neutrophils % 92.4; Platelet Count 226 x1000/uL (130-400); RBC 4.44 m/cumm (4.00-5.20); RBC Distribution Width 15.6 % (11.7-14.6); White Blood Cell Count 3.84 k/cumm (4.4-10.8)
[2019-08-06 07:26] LABS: BUN 51 mg/dL (7-18); CREATININE 2.22 mg/dL (0.55-1.02); Calcium 8.5 mg/dL (8.5-10.1); Chloride 96 mmol/L (98-107); Estimated GFR 21.53 (mL/min/1.73m2); Glucose 147 mg/dL (70-100); Magnesium 1.8 mg/dL (1.8-2.4); Potassium 4.9 mmol/L (3.5-5.1); Sodium 143 mmol/L (136-145)
[2019-08-06 07:49] LABS: Anion Gap 1.99999 mmol/L (3-11); CO2 > 45.0 mmol/L (21.0-32.0)
[2019-08-06] MEDS: Umeclidinium 7 CAP INHALER 1 CAP IH (08:13)
[2019-08-06] MEDS: Budesonide/Formoterol 160/4.5 6 GM 60 PUFF INH IH ×2 (08:16→20:45)
--- NOTE | 2019-08-06 08:32 | CMPROGNOTE_ITS ---
- If Service Date Differs Date of service: 08/06/19 Time of Service: 08:32 Care Management Progress Note S/O: Mayra was sitting up in a chair when CM came to see her. She seemed more subdued than in the past few days. She stated that she is just tired. She has been woken up during the night for care and has difficulty getting back to sleep. Mayra said she is getting very concerned about her inability to prepare her home for the company she is expecting on Sunday. She stated she needs to clean her house and get ready. She plans to call her friend today to see if the timeline for the visit can be adjusted.She informed CM that she is still hoping to be discharged today. A: Mayra is a pleasant 74 year old lady admitted to [facility] on 08/01/19 with new onset CHF and COPD exacerbation P: Mayra is being treated for COPD and a new diagnosis of CHF. She will be discharged home, possibly with new HH services and/or new home oxygen. CM will continue to provide support to patient and discharge planning needs.
[2019-08-06] MEDS: predniSONE 20 MG TAB 40 MG PO ×2 (09:01→20:45)
[2019-08-06] MEDS: Furosemide 40 MG TAB PO (09:01)
[2019-08-06] MEDS: Citalopram 10 MG TAB PO (09:01)
[2019-08-06] MEDS: Folic Acid 1 MG TAB PO (09:02)
[2019-08-06] MEDS: Pantoprazole 40 MG TABCR PO (09:02)
[2019-08-06] MEDS: Atorvastatin 10 MG TAB PO (09:02)
[2019-08-06] MEDS: Atenolol 25 MG TAB PO (09:02)
[2019-08-06] MEDS: Normal Saline Flush 10 ML SYR IVP (09:03)
--- NOTE | 2019-08-06 20:26 | W.PM.PROGNOT ---
Date of Service Date of service: 08/06/19 Time of Service: 20:27 Assessment and Plan Assessment and plan (1) Pleural effusion: Status: Acute Assessment and plan: Initiallyl thought to represent new onset CHF in patient with potential PHTN or RV dysfunction based on hx of COPD, ECHO checked and essentially normal. Evidence of significant lower extremity edema, slowly worsening overtime, with continued abnormal pulmonary exam and hypoxia. Given findings a CT was obtained and showed moderate sized b/l pleural effusions with areas of atelectasis - doubt infiltrates given previously normal WBC and lack of fever. Also noted incidental pulmonary nodules, only 5-6 mm in diameter. -Consider other differential for diagnosis of effusions and lower extremity edema. Echo has ruled out LV or RV CHF - discussed in detail with cardiology, who upon re-examination of ECHO reports potential, mild Diastolic Dysfunction and PHTN, but not significant. Urinalysis was checked ruled out nephrotic syndrome. No evidence of venous thrombosis by lower extremity ultrasounds, and no history of liver disease. Patient does have a history of renal disease, but this appears to be a chronic and essentially unchanged finding. Also with evidence of potential thyroid dysfunction, with a chronically low TSH and normal free T4 which could represent either subclinical hyperthyroidism or a hot thyroid nodule - in either case does not appear to be a myxedema type picture. -Discussed case with 2 surgeons, both of whom agreed that given the size and location of the pleural effusions, this fluid was not amenable to a tap. Unsure of the etiology for the patient's symptoms, and appears to be getting intravascularly depleted with current diuretic regimen. Question potential slow increase in fluid retention, potentially worsened with a mildly low albumin, occuring over 'months' per patient's history. May require a very slow approach to her diuresis given concurrent CKD, with home oxygen therapy. (2) Chronic obstructive lung disease: Status: Chronic Assessment and plan: Despite hypoxia patient continues to have no evidence of wheezing. However, at time of admission she did have evidence of wheezing and was initially treated with steroids. Question if there is any component of her hypoxia than may be COPD driven. For this reason we will initiate on some oral prednisone and monitor. (3) Chronic kidney disease: Status: Chronic Assessment and plan: Monitor renal function carefully given active attempts of diuresis. Renally dose medications when appropriate, and avoid nephrotoxins. BUN is climbing and bicarb is on measurably high on the basis of diuresis, and creatinine is now climbing despite daily decrease in oral low dose furosemide. Will hold Lasix today, with plans on resuming low daily dosing pending renal function in the morning. Qualifiers: Chronic kidney disease stage: unspecified stage Qualified Code(s): N18.9 - Chronic kidney disease, unspecified (4) Elevated d-dimer: Status: Acute Assessment and plan: Elevated d-dimer at time of admission noted. Lower extremity edema has been chronic, equal, symmetric, and bilateral. Lower extremity Dopplers also confirmed lack of DVT, and Wells criteria calculated to be 0. Discontinued heparin gtt. Continue to maintain patient on DVT prophylaxis only. (5) DVT prophylaxis: Status: Acute Assessment and plan: SC heparin given CKD. (6) Advance directive on file: Status: Acute Assessment and plan: Full CODE STATUS confirmed. Subjective Subjective Interval history since last seen: 74-year-old woman with a prior history of COPD, admitted from [facility] Emergency Department on 08/01 with a diagnosis of likely new onset CHF. Mrs. Arita has a past Medical History significant for tobacco abuse and COPD, CKD, Depression, and dyslipidemia. Her history also includes Hyperthyroidism, and TSH was confirmed as low with a normal FT4. The patient presented to the ED with reported 2 week history of bilateral LE edema, worsening fatigue, and [place]. Evaluation in the ED showed evidence of mild pulmonary edema superimposed on COPD by CXR, negative troponin, and significantly elevated BNP. Patient was given IV Lasix, and referred for admission for further evaluation and treatment. The patient appears improved again this morning, but not better than prior visit. Evidence of continued weight loss and diuresis despite decrease in diuretic therapy. ECHO was performed and essentially normal, with patient still requiring supplemental O2 and with abnormal exam. Labwork indicating intravascular depletion and worsening creatinine. Mrs. Arita herself feels like she is nearing her baseline from a respiratory standpoint. Remains afebrile. Exam Narrative Exam Narrative: General: Patient appears comfortable, AAOX3, NAD Neck: Supple CV: Regular, nontachycardic, S1S2 Pulmonary: bibasilar crackles continued, otherwise clear. No wheezing. Abdomen: + Bowel Sounds, soft, nontender, nondistended Vascular: 2+ b/l lower extremity edema Psych: Normal mood and affect. Objective Objective Clinical Data: Abnormal lab results 08/06/19 08/06/19 Range/Units 06:25 06:25 WBC 3.84 L D (4.4-10.8) k/cumm MCV 100.9 H (80-95) fL MCHC 28.6 L (32.0-36.0) g/dL RDW 15.6 H (11.7-14.6) % Absolute Lymphocytes 0.21 L (1.2-3.4) k/cumm Absolute Monocytes 0.08 L (0.11-0.7) k/cumm Chloride 96 L (98-107) mmol/L Carbon Dioxide > 45.0 H (21.0-32.0) mmol/L Anion Gap 1.02523 L (3-11) mmol/L BUN 51 H (7-18) mg/dL Creatinine 2.22 H (0.55-1.02) mg/dL Glucose 147 H (70-100) mg/dL Vital Signs Temperature 37.3 C 08/06/19 20:08 Temperature Source Tympanic 08/06/19 20:08 Pulse 73 08/06/19 20:08 Pulse Rhythm Regular 08/06/19 16:45 Pulse 68 08/01/19 21:00 Respiratory Rate 18 08/06/19 20:08 Respiratory Effort 08/06/19 16:45 Respiratory Depth Normal 08/06/19 16:45 Respiratory Pattern Normal 08/06/19 16:45 Blood Pressure 100/52 L 08/06/19 20:08 Blood Pressure Mean 107 08/01/19 18:46 Blood Pressure Position Sitting 08/01/19 15:13 Pulse Oximetry 94 L 08/06/19 20:08 Oxygen Delivery Method Nasal Cannula 08/06/19 20:08 Oxygen Flow Rate 2 08/06/19 20:08 Pain Level 0 08/06/19 20:08 Comment 08/06/19 12:05 Intake & Output 08/05/19 08/06/19 08/06/19 23:59 11:59 23:59 Intake Total 240 / 490 850 / 1330 480 / 1330 Output Total 1000 / 1000 Balance 240 / -110 -150 / 330 480 / 330 Weight 66.4 kg Intake: Oral 240 / 490 850 / 1330 480 / 1330 Output: Urine 1000 / 1000 Other: Urine Color Straw Urine Appearance Clear Clear Clear Urine Odor Normal Voiding Methods Toilet Laboratory Results WBC 3.84 k/cumm (4.4-10.8) L D 08/06/19 06:25 RBC 4.44 m/cumm (4.00-5.20) 08/06/19 06:25 Hgb 12.8 g/dL (12.0-15.5) 08/06/19 06:25 Hct 44.8 % (36.0-46.0) 08/06/19 06:25 MCV 100.9 fL (80-95) H 08/06/19 06:25 MCH 28.8 pg (27.0-33.0) 08/06/19 06:25 MCHC 28.6 g/dL (32.0-36.0) L 08/06/19 06:25 RDW 15.6 % (11.7-14.6) H 08/06/19 06:25 Plt Count 226 x1000/uL (130-400) 08/06/19 06:25 MPV 9.8 fL (8.0-11.0) 08/06/19 06:25 Immature Gran % 0.0 08/06/19 06:25 Neutrophils % 92.4 08/06/19 06:25 Lymphocytes % 5.5 08/06/19 06:25 Monocytes % 2.1 08/06/19 06:25 Eosinophils % 0.0 08/06/19 06:25 Basophils % 0.0 08/06/19 06:25 Absolute Neutrophils 3.55 k/cumm (1.2-6.7) 08/06/19 06:25 Absolute Lymphocytes 0.21 k/cumm (1.2-3.4) L 08/06/19 06:25 Absolute Monocytes 0.08 k/cumm (0.11-0.7) L 08/06/19 06:25 Absolute Eosinophils 0.00 k/cumm (0.0-0.7) 08/06/19 06:25 Absolute Basophils 0.00 k/cumm (0.0-0.2) 08/06/19 06:25 PT 11.6 sec (9.3-11.0) H 08/02/19 00:20 INR 1.2 (0.9-1.1) H 08/02/19 00:20 APTT 88.3 sec (21.0-31.4) H* D 08/02/19 17:17 D-Dimer 2144 ng/mlFEU (<500) H 08/02/19 00:20 Sodium 143 mmol/L (136-145) 08/06/19 06:25 Potassium 4.9 mmol/L (3.5-5.1) 08/06/19 06:25 Chloride 96 mmol/L (98-107) L 08/06/19 06:25 Carbon Dioxide > 45.0 mmol/L (21.0-32.0) H 08/06/19 06:25 Anion Gap 1.07513 mmol/L (3-11) L 08/06/19 06:25 BUN 51 mg/dL (7-18) H 08/06/19 06:25 Creatinine 2.22 mg/dL (0.55-1.02) H 08/06/19 06:25 Estimated GFR/1.73 m2 21.53 (mL/min/1.73m2) 08/06/19 06:25 Glucose 147 mg/dL (70-100) H 08/06/19 06:25 Calcium 8.5 mg/dL (8.5-10.1) 08/06/19 06:25 Magnesium 1.8 mg/dL (1.8-2.4) 08/06/19 06:25 Iron 21 ug/dL (50-175) L 08/02/19 06:55 TIBC 320 ug/dL (250-450) 08/02/19 06:55 Transferrin % Sat 7 % (15-50) L 08/02/19 06:55 Ferritin 32 ng/mL (8-388) 08/02/19 06:55 Total Bilirubin 0.8 mg/dL (0.2-1.0) 08/01/19 15:17 AST 24 U/L (15-37) 08/01/19 15:17 ALT 10 U/L (14-59) L 08/01/19 15:17 Alkaline Phosphatase 91 U/L (46-116) 08/01/19 15:17 Troponin I < 0.05 ng/mL (0.00-0.06) 08/01/19 23:10 NT-Pro-B Natriuret Pep 61373 pg/mL (-299) H 08/02/19 06:55 Total Protein 6.8 g/dL (6.4-8.2) 08/01/19 15:17 Albumin 2.8 g/dL (3.4-5.0) L 08/05/19 07:00 Vitamin B12 1184 pg/mL (193-986) H 08/02/19 06:55 Folate 4.9 ng/mL (8.6-20.0) L 08/02/19 06:55 TSH 0.11 uIU/mL (0.36-3.74) L 08/02/19 06:55 Free T4 1.22 ng/dL (0.76-1.46) 08/02/19 06:55 Urine Color Yellow (Yellow) 08/05/19 14:00 Urine Clarity Clear (Clear) 08/05/19 14:00 Urine pH 5.0 (5-8) 08/05/19 14:00 Ur Specific [place] 1.010 (1.005-1.025) 08/05/19 14:00 Urine Protein Negative mg/dL (Negative) 08/05/19 14:00 Urine Ketones Negative mg/dL (Negative) 08/05/19 14:00 Urine Blood Negative (Negative) 08/05/19 14:00 Urine Nitrite Negative (Negative) 08/05/19 14:00 Urine Bilirubin Negative (Negative) 08/05/19 14:00 Urine Urobilinogen 0.2 EU/dL (Up TO 0.2) 08/05/19 14:00 Ur Leukocyte Esterase Negative (Negative) 08/05/19 14:00 Urine Glucose Negative mg/dL (Negative) 08/05/19 14:00
[2019-08-06] MEDS: Mirtazapine 15 MG TAB 7.5 MG PO (22:46)
[2019-08-07] VITALS (8 sets, daily range): BP systolic 113–153; BP diastolic 64–82; PULSE 64–90; RESP 1–22; TEMP 36.4–37.2; O2SAT 84–97
[2019-08-07] MEDS: Albuterol/Ipratropium 3 ML UPD VIAL UPD ×2 (04:29→11:07)
[2019-08-07] MEDS: Heparin 5,000 UNITS/ML VIAL 5000 UNITS SC (07:00)
[2019-08-07] MEDS: Budesonide/Formoterol 160/4.5 6 GM 60 PUFF INH IH (07:35)
[2019-08-07] MEDS: Umeclidinium 7 CAP INHALER 1 CAP IH (07:36)
[2019-08-07 07:37] LABS: BUN 58 mg/dL (7-18); CREATININE 1.87 mg/dL (0.55-1.02); Calcium 8.9 mg/dL (8.5-10.1); Chloride 97 mmol/L (98-107); Estimated GFR 26.25 (mL/min/1.73m2); Glucose 138 mg/dL (70-100); Potassium 4.5 mmol/L (3.5-5.1); Sodium 141 mmol/L (136-145)
[2019-08-07 07:39] LABS: Abs Immature Grans 0.01 k/cumm (0.0-0.09); Absolute Lymphocyte Count 0.17 k/cumm (1.2-3.4); Absolute Monocyte Count 0.28 k/cumm (0.11-0.7); HGB 12.9 g/dL (12.0-15.5); Immature Grans % 0.2; Mean Corp. HGB Concentration 28.7 g/dL (32.0-36.0); Mean Corpuscular Hemoglobin 28.7 pg (27.0-33.0); Mean Corpuscular Volume 100.2 fL (80-95); Mean Platelet Volume 9.8 fL (8.0-11.0); Monocytes % 4.9; Neutrophils % 91.9; Platelet Count 198 x1000/uL (130-400); RBC 4.49 m/cumm (4.00-5.20); RBC Distribution Width 15.5 % (11.7-14.6); White Blood Cell Count 5.66 k/cumm (4.4-10.8)
[2019-08-07] MEDS: Folic Acid 1 MG TAB PO (07:40)
[2019-08-07] MEDS: Citalopram 10 MG TAB PO (07:40)
[2019-08-07] MEDS: predniSONE 20 MG TAB 40 MG PO (07:40)
[2019-08-07] MEDS: Atenolol 25 MG TAB PO (07:40)
[2019-08-07] MEDS: Atorvastatin 10 MG TAB PO (07:40)
[2019-08-07] MEDS: Pantoprazole 40 MG TABCR PO (07:40)
[2019-08-07 07:50] LABS: Anion Gap -1.00001 mmol/L (3-11); CO2 > 45.0 mmol/L (21.0-32.0)
[2019-08-07] MEDS: Normal Saline Flush 10 ML SYR IVP (12:30)
--- NOTE | 2019-08-07 12:57 | W.PM.DS.N ---
Date of service: 08/07/19 Time of Service: 12:57 DS: Diagnosis Discharge Diagnosis (1) Pleural effusion: Status: Acute (2) Chronic obstructive lung disease: Status: Chronic (3) Chronic kidney disease: Status: Chronic (4) Elevated d-dimer: Status: Acute Discharge Plan Disposition Patient Disposition: HOME W/HOME HEALTH SERVICE Condition: Stable Discharge Details Chief Complaint: Chest Pain Clinical Impression: Acute exacerbation of CHF (congestive heart failure), Acute exacerbation of chronic obstructive pulmonary disease (COPD) Reason For Visit: ACUTE CHF EXACERBATION, ACUTE COPD EXACERBATION Admit Date/Time: 08/01/19 19:31 Admit Provider: Galileo Sullivan Attending Provider: Galileo Sullivan Primary Care Provider: Camila Osuna ED Provider: Tania Escamilla Hospital Course Hospital Course: Chief Complaint: Fatigue, Worsening Edema HPI: 74-year-old woman with a prior history of COPD, admitted from [facility] Emergency Department on 08/01 with worsening lower extremity edema. Mrs. Arita has a past Medical History significant for tobacco abuse and COPD, CKD, Depression, and dyslipidemia. Her history also includes Hyperthyroidism, and TSH was confirmed as low but with a normal FT4. The patient presented to the ED with reported history of bilateral LE edema, worsening fatigue, and S[place]. Evaluation in the ED showed evidence of mild pulmonary edema superimposed on COPD by CXR, negative troponin, and significantly elevated BNP. She was given IV Lasix, and referred for admission for further evaluation and treatment. The patient appeared improved following diuresis, but not significantly better over the last few days than prior visits. Evidence of stable weight currently with holding of diuretic therapy yesterday. Renal function appears stable, and Labwork indicates continued intravascular depletion. ECHO was performed and essentially normal, with patient still requiring supplemental O2 and with abnormal exam. Mrs. Arita herself feels like she is nearing her baseline from a respiratory standpoint. Remains afebrile. Hospital Course: (1) Pleural effusion: Initially thought to represent new onset CHF in patient with potential PHTN or RV dysfunction based on hx of COPD, ECHO checked and essentially normal. Evidence of significant lower extremity edema, slowly worsening overtime, with continued abnormal pulmonary exam and hypoxia. Given findings a CT was obtained and showed moderate sized b/l pleural effusions with areas of atelectasis - doubt infiltrates given normal WBC and lack of fever. Also noted incidental pulmonary nodules, only 5-6 mm in diameter which need follow-up in the near future. -Considered other differential for diagnosis of effusions and lower extremity edema. . ECHO ruled out LV or RV CHF - discussed in detail with cardiology, who upon re-examof ECHO reports potential, mild Diastolic CHF and PHTN, but not significant. . Urinalysis was checked and ruled out nephrotic syndrome. . No evidence of venous thrombosis by lower extremity ultrasounds, and no history of liver disease - LFTs normal. . Patient does have a history of renal disease, but this appears to be a chronic and essentially unchanged finding. . Also with evidence of potential thyroid dysfunction, with a chronically low TSH and normal free T4 which could represent either subclinical hyperthyroidism or a hot thyroid nodule - in either case does not appear to be a myxedema type picture. -Discussed case with 2 surgeons, both of whom agreed that given the size and location of the pleural effusions, this fluid was not amenable to a tap. Unsure of the etiology for the patient's symptoms, and appears to be getting intravascularly depleted with current diuretic regimen. Question slow increase in fluid retention, potentially worsened with a mildly low albumin, occuring over 'months' per patient's history, with a small component of heart failure as well. May require a very slow approach to her diuresis given concurrent CKD, with home oxygen therapy. Plan to discharge on low dose diuretic therapy, follow-up with VNA, repeat BMP in 3 days, and quick turn around appointment with PCP in 1 week. (2) Chronic obstructive lung disease: Despite hypoxia patient continues to have no evidence of wheezing. However, at time of admission she did have evidence of wheezing and was initially treated with steroids. Question if there is any component of her hypoxia than may be COPD driven. For this reason she was maintained on oral prednisone, but without effect. This will be tapered off. (3) Chronic kidney disease: BUN higher than baseline, and bicarb is unmeasurably high on the basis of diuresis. Creatinine remains stable. Will plan on low dose, daily Lasix dosing, with careful monitoring of symptoms and weight as outpatient. Weight remained stable off diuretic therapy yesterday. (4) Elevated d-dimer: Elevated d-dimer at time of admission noted. CTA of chest was not pursued in the ED due to renal function. Lower extremity edema has been chronic, equal, symmetric, and bilateral. Lower extremity Dopplers also confirmed lack of DVT, and Wells criteria calculated to be 0. Discontinued heparin gtt. Continued to maintain patient on DVT prophylaxis while hospitalized. (5) DVT prophylaxis: Was maintained on SC heparin given CKD. (6) Advance directive on file: Full CODE STATUS confirmed. Home Meds and New Rx's Prescriptions: New prednisone 20 mg tablet 20 mg PO DAILY Qty: 9 RF: 0 furosemide 20 mg tablet 20 mg PO DAILY Qty: 30 RF: 0 Continued citalopram 10 mg tablet 10 mg PO DAILY Qty: 90 RF: 3 mirtazapine 7.5 mg tablet 7.5 mg PO HS Qty: 90 RF: 3 levalbuterol tartrate [Xopenex HFA] 15 GM HFA aerosol inhaler 1 - 2 puff Inhalation Q4H PRN Qty: 1 RF: 1 lidocaine [LC-5] 45 GM cream 1 film Topical 2-4 times daily PRN Qty: 1 RF: 3 atenolol 25 mg tablet 25 mg PO DAILY Qty: 90 RF: 3 Symbicort 160-4.5 mcg/actuation HFA aerosol inhaler 2 puff Inhalation BID Qty: 3 RF: 3 Incruse Ellipta 62.5 mcg/actuation blister with device 1 inh Inhalation DAILY Qty: 3 RF: 3 atorvastatin 10 mg tablet 10 mg PO DAILY Qty: 90 RF: 3 Discharge Instructions Instructions: Heart Failure (DC), COPD (Chronic Obstructive Pulmonary Disease) (DC), Edema (DC) Stand Alone Forms: Nursing Discharge Form Referrals: Camila Osuna NP [Primary Care Provider] - 08/14/19 1:15 pm Activity:: No strenuous activity Equipment/Supplies:: Oxygen (L/min Below) Diet:: Low Sodium Discharge Orders Discharge Orders: Discharge Order (Routine); Ordered 08/07/19 Ordered By: Elmer Mora DS: Summary Status at Discharge Functional status at discharge: independent ambulation Overall status at discharge: patient is back to baseline Mental Status: mental status grossly normal Speech and Movement: speech and movement normal Mood: congruent mood Affect: normal affect Exam Narrative Exam Narrative: General: Patient appears comfortable, AAOX3, NAD Neck: Supple CV: Regular, nontachycardic, S1S2 Pulmonary: bibasilar crackles continued, otherwise clear. No wheezing. Abdomen: + Bowel Sounds, soft, nontender, nondistended Vascular: 2+ b/l lower extremity edema Psych: Normal mood and affect. Psych Mental Status: mental status grossly normal Speech and Movement: speech and movement normal Mood: congruent mood Affect: normal affect DS: Data Vitals/I&O Vitals and I&O: Vital Signs Temperature 37.2 C 08/07/19 12:05 Temperature Source Tympanic 08/07/19 12:05 Pulse 69 08/07/19 12:05 Pulse Rhythm Regular 08/07/19 08:26 Pulse 68 08/01/19 21:00 Respiratory Rate 18 08/07/19 12:05 Respiratory Effort 08/07/19 08:26 Respiratory Depth Normal 08/07/19 08:26 Respiratory Pattern Normal 08/07/19 08:26 Blood Pressure 113/64 08/07/19 12:05 Blood Pressure Mean 107 08/01/19 18:46 Blood Pressure Position Sitting 08/01/19 15:13 Pulse Oximetry 94 L 08/07/19 12:05 Oxygen Delivery Method Nasal Cannula 08/07/19 12:05 Oxygen Flow Rate 2 08/07/19 12:05 Pain Level 0 08/07/19 12:05 Comment 08/06/19 23:10 Intake & Output 08/06/19 08/07/19 08/07/19 23:59 11:59 23:59 Intake Total 490 / 1340 480 / 730 250 / 730 Output Total 800 / 800 Balance 490 / 340 -320 / -70 250 / -70 Weight 70.1 kg Intake: IV Oral 480 / 1330 480 / 720 240 / 720 Output: Urine 800 / 800 Other: Urine Color Light Candace Urine Appearance Clear Clear Urine Odor Normal Comment Voids x2. Voiding Methods Toilet Data Completed and Pending Completed studies during hospitalization [Text1]: Exam(s) 08/01/2019 a RAD:XR chest 2V PA & lateral EXAM: XR CHEST 2V PA LATERAL INDICATION: sob, leg swelling, r/o chf/pneumonia. COMPARISON: CHEST 2 VIEWS PA,LAT from 07/28/2013 TECHNIQUE: 2D digital imaging was performed. FINDINGS: Examination is compared with most recent film of August 01. There is interval development of bilateral pleural effusions and mild bilateral diffuse intrapulmonary interstitial radiodensities. Findings are consistent with interval development of CHF. IMPRESSION: Exam(s) 08/02 a US:US extremity venous BI EXAM: US EXTREMITY VENOUS BI CLINICAL HISTORY: bilateral leg edema, dyspnea, hypoxemia, d-dimer. TECHNIQUE: Ultrasound performed using standard protocol. COMPARISON: RENAL ULTRASOUND(P) from 12/14/2016 FINDINGS: Duplex venous ultrasound of both lower extremities was performed. Deep veins are freely compressible throughout and there is no visible thrombus. IMPRESSION: Examination is negative for DVT both lower extremities. --------- Exam(s) a US:US echocardiogram APPROVED REPORT EXAM: Comprehensive 2D, Doppler, and color-flow Echocardiogram Patient Location: In-Patient Room/Bed: 214A Indications: Chest Pain, new CHF Left Ventricle The left ventricle is normal size. The left ventricular systolic function is normal. The left ventricular ejection fraction is within the normal range. There is normal left ventricular wall thickness. There is normal LV segmental wall motion. The left ventricular diastolic function is normal. LVEF is 55-60%. Right Ventricle The right ventricle is normal size. The right ventricular systolic function is normal. Atria The left atrium size is normal. The right atrium size is normal. Aortic Valve The aortic valve is normal in structure. Aortic valve is trileaflet. There is no aortic valvular stenosis. No aortic regurgitation is present. Mitral Valve There is mitral annular calcification. No evidence of mitral valve stenosis. Mild mitral regurgitation. Tricuspid Valve The tricuspid valve is normal in structure. Trace tricuspid regurgitation. Pulmonic Valve Pulmonic valve is not well visualized. Great Vessels The aortic root is normal in size. The IVC is enlarged with less than 50% collapse Pericardium There is no pericardial effusion. There is no pleural effusion. 2D Dimensions IVSd 0.8 cm F: 0.6-1.0 PWd 0.8 cm F: 0.6 - 1.0 LVDd 4.6 cm F: 3.9 - 5.3 LVDs 3.2 cm F: 2.2 - 3.5 Aortic Root 3.2 cm F: 2.7 - 3.3 Left Atrium 3.6 cm F: 2.7 - 3.8 LVOT 1.9 cm (M/F) 1.5-2.5 Ascending Aorta 3.6 cm F: 2.3 - 3.1 LVEF (Zuniga's) 56.4 % F: 54 - 74 LV Volume 56.1 mL F: 46 - 106 LV Volume Index 30.8 mL/m2 F: 29 - 61 FS 30.4 % LV Diastology E/A Ratio 1.3 MED E' 0.1 (<0.07 m/s) LV E/e MED 10.9 (>14) LAT E' 0.1 (<0.1 m/s) LV E/e LAT 10.0 (>14) Aortic Valve LVOT Peak Eduardo. 1.2 m/s LVOT Peak Gr. 5.7 mmHg LVOT Mean Gr. 2.6 mmHg LVOT VTI 0.3 m AoV Peak Eduardo. 1.4 (0.5-1.3 m/s) AoV Mean Eduardo. 0.6 m/s AO VTI 0.3 (0.18-0.25 m) WIL (VTI) 2.4 (2.5-4.5 cm2) Mitral Valve MV E Max Edurado. 0.9 (0.4-1.3 m/s) MV A Velocity 0.7 (0.4-1.3 m/s) E/A Ratio 1.2 MV Decel. Time 178.0 (160-240 msec) MV PHT 51.7 msec MVA PHT 4.3 cm2 Tricuspid Valve TR P. Velocity 2.2 m/s TR P. Gradient 19.4 mmHg Conclusion Left Ventricle : The left ventricle is normal size. There is normal LV segmental wall motion. LVEF is 55-60%. There is normal left ventricular wall thickness. The left ventricular diastolic function is normal. Right Ventricle : The right ventricle is normal size. The right ventricular systolic function is normal. Atria : The left atrium size is normal. The right atrium size is normal. Aortic Valve : The aortic valve is normal in structure. Aortic valve is trileaflet. There is no aortic valvular stenosis. No aortic regurgitation is present. Mitral Valve : There is mitral annular calcification. Mild mitral regurgitation. No evidence of mitral valve stenosis. Tricuspid Valve : The tricuspid valve is normal in structure. Trace tricuspid regurgitation. IVC: The IVC is dilated with >50% collapse. This corresponds to an RVSP of about 35mmHg Great Vessels : The aortic root is normal in size. Summary: There is no evidence of ischemia on echo. Exam(s) a CT:CT chest wo EXAM: CT CHEST WO CLINICAL HISTORY: Persistent Hypoxia TECHNIQUE: CT examination of the chest was performed without contrast administration due to the patient's impaired renal function. COMPARISON: No exams were available for comparison FINDINGS: Images obtained through the upper abdomen show unremarkable appearance of visualized portions of liver, spleen, pancreas, adrenals and kidneys. There are moderate-sized bilateral pleural effusions and there are areas of atelectasis in both lung bases. Small superimposed consolidation not excluded. There are a few well-circumscribed noncalcified intrapulmonary nodules seen bilaterally, the largest in the right lower lobe measuring 5-6 millimeters in diameter. Tracheobronchial tree appears intact. No upper lobe consolidation. Minimal scarring noted at a few sites. No gross mediastinal or hilar adenopathy. IMPRESSION: Bilateral pleural effusions and areas of bibasilar atelectasis, small areas of consolidation could be present in the bases but otherwise the lungs are clear. Incidental pulmonary nodules measuring up to 5-6 millimeters in diameter, follow-up LDCT recommended in 6 months. Labs on day of discharge: Labs from last 24 hours 08/07/19 08/07/19 07:08 07:08 WBC 5.66 D RBC 4.49 Hgb 12.9 Hct 45.0 MCV 100.2 H MCH 28.7 MCHC 28.7 L RDW 15.5 H Plt Count 198 MPV 9.8 Immature Gran % 0.2 Neutrophils % 91.9 Lymphocytes % 3.0 Monocytes % 4.9 Eosinophils % 0.0 Basophils % 0.0 Absolute Neutrophils 5.20 Absolute Lymphocytes 0.17 L Absolute Monocytes 0.28 Absolute Eosinophils 0.00 Absolute Basophils 0.00 Sodium 141 Potassium 4.5 Chloride 97 L Carbon Dioxide > 45.0 H Anion Gap -1.57808 L BUN 58 H Creatinine 1.87 H Estimated GFR/1.73 m2 26.25 Glucose 138 H Calcium 8.9 Magnesium 2.0 PFSH Medical History Chronic kidney disease (Chronic 10/05/16) 02/2019: low-dose SAWYER-I caused hyperkalemia --> d/c'ed! 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 Heart disease Father , HF at age 77. Heart disease Sister Heart disease During childhood only? Brother , OR at age 75. Heart disease Prostate cancer Brother Heart disease Social History Smoking/Tobacco Use Status: Former Tobacco Use Alcohol Intake: current Alcohol Intake frequency: holidays/special occasions only Drug use: Never Substance use type: does not use Adopted: No Caregiver/Support person: No Foster care: No Household members: none Housing: house Communication Needs: None Pets and animals: No Sexually active: No Current gender identity: female What type of physical activity do you participate in: none Seatbelt use: always Do you feel safe at home: Yes Do you feel safe in your relationship?: Yes
--- NOTE | 2019-08-07 14:00 | PDOC.HHF2F ---
Home Health Certification Home Health Certification: 1. Encounter Date and Reason I certify that JANET MCADAMS was seen by Elmer Mora on 08/07/19 and that I had a [id number] encounter with this patient that meets the physician face to face encounter requirements. 2. Clinical Findings Supporting Skilled Need and Homebound Status I certify that home health services are medically necessary, include either intermittent nursing home and/or physical/speech therapy, and that this patient is homebound in that absences from the home require considerable and taxing effort and are infrequent or of short duration, or are attributable to the need to receive medical care. [X] (a) Attached documentation from encounter provides clinical findings supporting skilled need and homebound status (including what assistance patient requires to leave the home). The encounter with the patient was in whole, or in part, for the following medical condition, which is the primary reason for home health care: ACUTE CHF EXACERBATION, ACUTE COPD EXACERBATION Retirement: New medication reconciliation, check BMP in 3-5 days, check vitals including Oxygen at rest and with activity on supplemental O2, clinically assess post hospitalization. Physical Therapy: Assess for home PT needs Speech Therapy: Homebound: 3. Certification and Authentication I certify that I composed the above information based on my clinical judgement relating to this patient's medical condition and, if applicable, clinical findings communicated to me by the NPP or inpatient physician who performed the Home Health Referral. All further orders will be obtained through Camila Osuna (Community Based Physician - PCP)
--- NOTE | 2019-08-07 17:24 | PDOC.CMDIS ---
- If Service Date Differs Date of service: 08/07/19 Time of Service: 17:24 LACE Index Scoring Tool - Questions: Length of Stay (in days): 4 - 6 Acuity (Admit via E.D.?): Yes Comorbidities: Chronic Pulmonary Disease, Liver or Renal Disease E.D. Visits: 1 - Answers: Total Score: 13 Risk of Readmission: High Risk Care Management Discharge Reason for Hospitalization: Acute CHF and COPD Discharge Plan: Mayra will be discharged home with new nursing and new home oxygen. 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 Patient/Family Education Needs: Discharge plan, follow up plan, limitations andd Ask Me Three. Services Needed at Discharge: Home Health Care Services, Oxygen Therapy
== END 2019-08-07 14:45 | disposition home health service (06) | DRG 187 ==
LOC: ER 19:41 → MS 08-02 07:36
PROVIDERS: Admitting Provider Internal Medicine; Emergency Provider Physician Assistant; PCP Nurse Practitioner Family; Visit Provider Internal Medicine
DX: J90 Pleural effusion, not elsewhere classified (principal); J98.11 Atelectasis; R09.02 Hypoxemia; R60.0 Localized edema; J44.9 Chronic obstructive pulmonary disease, unspecified; I27.20 Pulmonary hypertension, unspecified; R91.8 Other nonspecific abnormal finding of lung field; N18.9 Chronic kidney disease, unspecified; R79.1 Abnormal coagulation profile; F32.9 Major depressive disorder, single episode, unspecified; E78.5 Hyperlipidemia, unspecified; E05.90 Thyrotoxicosis, unspecified without thyrotoxic crisis or storm; Z87.891 Personal history of nicotine dependence
CPT/HCPCS: 36415; 71250; 80048; 80053; 93306; 94618; 94640; 99223; 99232; 99233; 99239; 71046; 81003; 82040; 82607; 82728; 82746; 83540; 83550; 83735; 83880; 84439; 84443; 84484; 85025; 85379; 85610; 85730; 93970; J1644; J1650; J1940; J2930; J7512; J7620

== ENCOUNTER 2019-08-14 14:20 | Outpatient (CLI) | payer MEDICARE, SELFPAY ==
[2019-08-14 16:13] LABS: ALT 37 U/L (14-59); AST 19 U/L (15-37); Albumin 3.2 g/dL (3.4-5.0); Alkaline Phosphatase 65 U/L (46-116); Anion Gap 6.6 mmol/L (3-11); BUN 45 mg/dL (7-18); Bilirubin, Total 0.7 mg/dL (0.2-1.0); CO2 35.4 mmol/L (21.0-32.0); CREATININE 1.83 mg/dL (0.55-1.02); Calcium 8.9 mg/dL (8.5-10.1); Chloride 101 mmol/L (98-107); Estimated GFR 26.91 (mL/min/1.73m2); Glucose 94 mg/dL (70-100); NT-proBNP 10895 pg/mL; Potassium 4.7 mmol/L (3.5-5.1); Sodium 143 mmol/L (136-145)
== END 2019-08-14 14:40 ==
PROVIDERS: PCP Nurse Practitioner Family; Visit Provider Nurse Practitioner Family
DX: R06.02 Shortness of breath (principal); I50.9 Heart failure, unspecified; N18.9 Chronic kidney disease, unspecified
CPT/HCPCS: 36415; 80053; 83880

== ENCOUNTER 2019-09-01 12:46 | Outpatient (CLI) | payer MEDICARE, SELFPAY ==
[2019-09-01 14:25] LABS: ALT 26 U/L (14-59); AST 23 U/L (15-37); Albumin 3.3 g/dL (3.4-5.0); Alkaline Phosphatase 116 U/L (46-116); Anion Gap 6.5 mmol/L (3-11); BUN 27 mg/dL (7-18); Bilirubin, Total 0.5 mg/dL (0.2-1.0); CO2 35.5 mmol/L (21.0-32.0); CREATININE 1.84 mg/dL (0.55-1.02); Calcium 9.6 mg/dL (8.5-10.1); Chloride 101 mmol/L (98-107); Estimated GFR 26.74 (mL/min/1.73m2); Glucose 94 mg/dL (70-100); NT-proBNP 4868 pg/mL; Sodium 143 mmol/L (136-145); Total Protein 6.6 g/dL (6.4-8.2)
== END 2019-09-01 13:06 ==
PROVIDERS: PCP Nurse Practitioner Family; Visit Provider Nurse Practitioner Family
DX: I50.9 Heart failure, unspecified (principal); N18.9 Chronic kidney disease, unspecified
CPT/HCPCS: 36415; 80053; 83880

== ENCOUNTER 2019-10-24 13:53 | Outpatient (CLI) | payer MEDICARE, SELFPAY ==
[2019-10-24 15:15] LABS: Anion Gap 4.5 mmol/L (3-11); BUN 33 mg/dL (7-18); CO2 36.5 mmol/L (21.0-32.0); CREATININE 1.63 mg/dL (0.55-1.02); Calcium 9.2 mg/dL (8.5-10.1); Chloride 102 mmol/L (98-107); Estimated GFR 30.76 (mL/min/1.73m2); Glucose 86 mg/dL (74-106); Potassium 4.1 mmol/L (3.5-5.1); Sodium 143 mmol/L (136-145)
[2019-10-24 15:34] LABS: NT-proBNP 764 pg/mL (<300)
[2019-10-27 12:20] LABS: Prealbumin 18 mg/dL (20-40)
== END 2019-10-24 14:13 ==
PROVIDERS: PCP Nurse Practitioner Family; Visit Provider Nurse Practitioner Adult Health
DX: I50.9 Heart failure, unspecified (principal); E88.09 Other disorders of plasma-protein metabolism, not elsewhere classified; N18.9 Chronic kidney disease, unspecified
CPT/HCPCS: 36415; 80048; 83880; 84134

== ENCOUNTER 2019-12-31 13:45 | Outpatient (CLI) | payer MEDICARE, SELFPAY ==
[2019-12-31 15:08] LABS: ALT 32 U/L (14-59); AST 30 U/L (15-37); Albumin 3.1 g/dL (3.4-5.0); Alkaline Phosphatase 129 U/L (46-116); Anion Gap 5.4 mmol/L (3-11); BUN 30 mg/dL (7-18); Bilirubin, Total 0.4 mg/dL (0.2-1.0); CO2 35.6 mmol/L (21.0-32.0); Chloride 104 mmol/L (98-107); Glucose 90 mg/dL (74-106); NT-proBNP 754 pg/mL (<300); Sodium 145 mmol/L (136-145); Total Protein 6.8 g/dL (6.4-8.2)
[2020-01-01 10:07] LABS: Prealbumin 22 mg/dL (20-40)
== END 2019-12-31 14:05 ==
PROVIDERS: PCP Nurse Practitioner Family; Visit Provider Nurse Practitioner Family
DX: I50.9 Heart failure, unspecified (principal); N18.9 Chronic kidney disease, unspecified; E88.09 Other disorders of plasma-protein metabolism, not elsewhere classified
CPT/HCPCS: 36415; 80053; 83880; 84134

== ENCOUNTER 2020-04-28 09:05 | Outpatient (CLI) | payer MEDICARE, SELFPAY ==
--- NOTE | 2020-04-28 13:02 | DI.CT_ITS ---
EXAM: CT CHEST WO CLINICAL HISTORY: 6 mo f/u pulm nodules, R91.8, h/o COPD, tobacco use disorder TECHNIQUE: Imaging Protocol: Axial computed tomography images with coronal and sagittal reformatted images were created and reviewed CONTRAST MATERIAL: Noncontrast COMPARISON: CR,XR XR CHEST 2V PA LATERAL from 08/01/[address] CHEST WO from 08/05/2019 FINDINGS: Tracheobronchial tree: Patent where visualized. Mediastinum and Lauren: No dominant adenopathy or fluid collection. Pulmonary parenchyma: No consolidation or dominant measurable mass. Again noted are scattered tiny no dules. Findings likely reflect granulomatous disease. There has been no change since the previous e xam. There are mild underlying changes of centrilobular emphysema. There is mild scarring in the love ng apices. Pleura: No effusion or pneumothorax. Heart: There is mild left ventricular and left atrial enlargement.. Mild coronary artery calcificati ons are seen. Aorta: Thoracic aorta non-dilated. Minimal calcifications. Upper abdomen: Unremarkable. Lymph nodes: Within normal limits. Bones: Normal. IMPRESSION: Stable scattered tiny pulmonary nodules. If the patient is at increased risk for lung cancer, a low- dose screening CT could be considered in 12 months. RADIATION DOSE DELIVERED: Total DLP DATA REPOSITORY: All CT scans at this facility are submitted to the National Radiology Data Registry (NRDR) Dose Index Registry (DIR) with the [employer] (ACR). RADIATION OPTIMIZATION: All CT scans at this facility use at least one of these dose optimization te chniques: automated exposure control; mA and/or kV adjustment per patient size (includes targeted exa ms where dose is matched to clinical indication); or iterative reconstruction.
== END 2020-04-28 09:25 ==
PROVIDERS: PCP Nurse Practitioner Family; Visit Provider Nurse Practitioner Family
DX: R91.8 Other nonspecific abnormal finding of lung field (principal); J44.9 Chronic obstructive pulmonary disease, unspecified; Z72.0 Tobacco use; J98.4 Other disorders of lung
CPT/HCPCS: 71250

== ENCOUNTER 2021-03-22 02:54 | Outpatient (CLI) | payer MEDICARE, SELFPAY ==
[2021-03-22 10:43] LABS: Abs Immature Grans 0.02 10^3/uL (0.0-0.06); Absolute Basophil Count 0.03 10^3/uL (0.0-0.2); Absolute Eosinophil Count 0.07 10^3/uL (0.0-0.7); Absolute Lymphocyte Count 0.57 10^3/uL (1.2-3.4); Absolute Monocyte Count 0.59 10^3/uL (0.1-0.8); Absolute Neutrophil Count 4.38 10^3/uL (1.2-6.7); Basophils % 0.5; Eosinophils % 1.2; HCT 50.6 % (36.0-46.0); HGB 15.3 g/dL (11.2-15.7); Immature Grans % 0.4; Lymphocytes % 10.1; MCH 31.3 pg (27.0-33.0); MCHC 30.2 % (32.0-36.0); MCV 103.5 fL (80-95); MPV 9.4 fL (8.0-11.0); Monocytes % 10.4; Neutrophils % 77.4; Nucleated RBC 0 %; Platelet Count 219 10^3/uL (130-400); RBC 4.89 10^6/uL (3.93-5.22); RDW 14.1 % (11.7-14.6); RDW-SD 54.4 fL; WBC 5.66 10^3/uL (4.4-10.8)
[2021-03-22 10:57] LABS: ALT 20 U/L (14-59); AST 17 U/L (15-37); Albumin 3.4 g/dL (3.4-5.0); Alkaline Phosphatase 112 U/L (46-116); BUN 36 mg/dL (7-18); CREATININE 1.9 mg/dL (0.55-1.02); Calcium 8.8 mg/dL (8.5-10.1); Calculated LDL 71 mg/dL (<100); Chloride 100 mmol/L (98-107); Cholesterol 165 mg/dL (<200); Glucose 116 mg/dL (74-106); HDL Cholesterol 77 mg/dL (40-60); Potassium 3.6 mmol/L (3.5-5.1); Sodium 143 mmol/L (136-145); TSH (W/Ref FT4) 0.21 uIU/mL (0.36-3.74); Total Protein 7.3 g/dL (6.4-8.2); Triglyceride 86 mg/dL (<150)
[2021-03-22 11:08] LABS: Hemoglobin A1C 6.1 % (<5.7)
[2021-03-22 11:13] LABS: FREE T4 1.63 ng/dL (0.76-1.46)
== END 2021-03-22 02:55 | disposition home or self-care (01) ==
LOC: LBO 02:54
PROVIDERS: PCP Nurse Practitioner Family; Visit Provider Nurse Practitioner Family
DX: R73.01 Impaired fasting glucose (principal); E78.5 Hyperlipidemia, unspecified; N18.9 Chronic kidney disease, unspecified; Z86.39 Personal history of other endocrine, nutritional and metabolic disease
CPT/HCPCS: 36415; 80053; 80061; 83036; 84439; 84443; 85025

== ENCOUNTER 2021-04-12 01:13 | Outpatient (CLI) | payer MEDICARE, SELFPAY ==
--- NOTE | 2021-04-12 06:30 | DI.NM_ITS ---
APPROVED REPORT Exam: Pharmacologic paired w/ low level exercise Patient Location: Out-Patient Room/Bed: Stress Nurse: Emily Davila RN Ordering Provider:LEESA BINH, Contact Number: [phone] BMI: 21.43 Baseline Rhythm: Sinus Rhythm Comment: T wave inversions present in V3-V4 Indications: Recent episode chest pain, shortness of breath, nausea/vomiting. Medical History Medical History: CHF, CKD, Depression, Osteopenia, HLD, Pulmonary nodules, COPD, Hyperthyroidism, For lexie smoker Cardiac Medications: Atorvastatin, Furosemide, Metoprolol tartrate, Budesonide-formoterol inhaler, Un eclidinium inhaler, Levalbuterol tartrate inhaler. Allergies: No known drug allergies Cardiac Risk Factors: Hyperlipidemia, FHX of CAD, Smoking (former) , COPD Previous Cardiac Procedures: None Pretest Chest Pain Characteristics: No chest pain Exercise History: Sedentary Physical Disabilities: None. Lung Sounds: Diminished throughout Heart Sounds: Regular Stress Test Details Test: Pharmacologic stress was paired with low level exercise. Reason for pharmacologic stress test: T wave inversions present.. Nuclear Acquisition: Rest Tc-99m/Stress Tc-99m 1 day Rest Isotope: Tc-99m Sestamibi. Dose: 9.5 Date: 04/12/2021 Injection Time: 0900 Stress Isotope: Tc-99m Sestamibi. Dose: 32.5 Date: 04/12/2021 Injection Time: 1015 HR Resting HR Supine: 74 bpm Max Heart Rate (APMHR): 144 bpm Resting HR Standin bpm Target HR (85% APMHR): 122 bpm Max HR Achieved: 98 bpm % of APMHR: 68 Recovery HR: 84 bpm Comment: Beta elsi not held for test. BP Resting BP Supine: 126/88 mmHg Resting BP Standin/80 mmHg Max BP: 130/80 mmHg Recovery BP: 128/76 mmHg BP response to stress: Abnormal hypertensive response to stress. ECG Resting ECG: Sinus Rhythm Ectopy: frequent PVCs Comment: T wave inversions present in leads V3 and V4. Stress ECG: Sinus Rhythm ST Change: No significant ST segment changes noted Arrhythmia: None Recovery ECG: Sinus Rhythm Recovery ST Change: No significant ST segment changes noted Recovery Arrhythmia: PVCs Clinical Stress Symptoms: Dyspnea Rate Pressure Product: 38000 Stress ECG Conclusion 1. Resting electrocardiogram showed vertical axis, poor R wave progression 2. Patient underwent low-level exercise as well as pharmacologic stress with regadenoson 3. Blunted hemodynamics. Peak heart rate was 68% of maximal predicted for age 4. Electrocardiographically the test was nondiagnostic due to inadequate heart rate 5. Sporadic PVCs were seen Stress Test Summary STAGE HR BP Symptoms NOTES Supine 74 126/88 1 min post Lexiscan injection 82 122/80 severe dyspnea SpO2 76% 3 min post Lexiscan injection 92 118/82 SpO2 80% 6 min post Lexiscan injection 84 128/76 symptoms resolved. SpO2 87% w/ 2L NC Standing 77 130/80 Lexiscan paired with low level exercise. Patient had to stop walking 1 min and 45 sec after lexiscan injection due to severe dyspnea. SpO2 at that time 76%. No baseline SpO2 available for comparison. Sp O2 not much improved when symptoms resolved, max SpO2 83% on RA. Patient asked if she had any issues with her oxygen at baseline to which she replied it's often very low but could not tell us what her normal SpO2 is. Patient states that she needed oxygen for a recent hospital admission and was sent h ome with it, but does not remember the settings and does not use at home. 2L NC applied here, which i mproved SpO2 to 87-88%. Encouraged patient to notify her doctor of low oxygen saturations and to chec k at home. MPI Conclusion Myocardial perfusion appeared normal without evidence of ischemia or prior infarction. EF was 63% Radiologist Interpretation Radiologist agrees with Electroplating Laborer's Interpretation. Radiologist Interpretation by: Severo Stevens MD Interpretation Date/Time: 04/12/2021 14:43:08
--- NOTE | 2021-04-12 06:30 | DI.RAD_ITS ---
Exam(s) XR CHEST 2V PA LATERAL EXAM: XR CHEST 2V PA LATERAL CLINICAL HISTORY: Recent CP, incr SOB, ?uncompensated CHF, recent GA?,i50.9,r06.02 TECHNIQUE: COMPARISON: CR,XR XR CHEST 2V PA LATERAL from 08/01/2019 FINDINGS: The heart is moderately enlarged. The lungs appear clear. No gross pulmonary vascular redistributio n. No pleural effusion. No pneumothorax. No focal consolidation. IMPRESSION: Cardiomegaly, otherwise unremarkable study. RADIATION DOSE DELIVERED: Total DLP
--- NOTE | 2021-04-12 07:39 | DI.US_ITS ---
APPROVED REPORT EXAM: Comprehensive 2D, Doppler, and color-flow Echocardiogram Patient Location: Out-Patient Supervisor Curing Room: Kathy Patiño RDCS (AE) Indications: HS HF, Chest pain, Edema, SOB Other Information Study Quality: Adequate Conclusion Normal left ventricular wall thickness and chamber size. Estimated ejection fraction is approximatel y 60%. There are no segmental wall motion abnormalities Dilated right ventricle Moderately dilated right atrium. Mildly dilated left atrium Mildly thickened trileaflet aortic valve without stenosis or regurgitation Normal mitral valve with mild regurgitation Normal tricuspid valve with mild to moderate regurgitation. Estimated right ventricular systolic pre ssure is 45 mmHg Minimally dilated ascending aorta Wall motion Left Ventricle The left ventricle is normal size. The left ventricular systolic function is normal. The left ventric ular ejection fraction is within the normal range. There is normal left ventricular wall thickness. T here is normal LV segmental wall motion. There is no ventricular septal defect visualized. LVEF is 58 %. Right Ventricle Right ventricle is mild to moderately dilated. The right ventricular systolic function is normal. The RVSP is 45.4mmHg. Atria Left atrium is mildly dilated. Right atrium is moderately dilated. The atrial septum is thin and hype rmobile Aortic Valve The aortic valve is mildly thickened, trileaflet There is no aortic valvular stenosis. No aortic regu rgitation is present. Mitral Valve The mitral valve is normal in structure. No evidence of mitral valve stenosis. Mild mitral regurgitat ion. Tricuspid Valve The tricuspid valve is normal in structure. There is no tricuspid valve stenosis. Mild to moderate tr icuspid regurgitation. Pulmonic Valve The pulmonary valve is normal in structure. There is no pulmonic valvular stenosis. Trace pulmonic re gurgitation. Great Vessels The aortic root is normal in size. The ascending aorta is mildly dilated. Aortic arch is normal in ca liber. The IVC collapses <50% with inspiration. Pericardium There is no pericardial effusion. 2D Dimensions IVSD d PLAX 0.93 cm F: 0.6-1.0 LV Vol A2C d MOD 78.3 mL LVPW d PLAX 1.01 cm F: 0.6 - 1.0 LV Vol A4C d MOD 57.4 mL LVID d PLAX 4.27 cm F: 3.8 - 5.2 LA vol/ BSA A2C s A-L 22.9 mL/m2 LVDs 2.75 cm F: 2.2 - 3.5 LA vol/ BSA A4C s A-L 20.8 mL/m2 Ao Root d 3.14 cm F: 2.7 - 3.3 LA Vol/ BSA Biplane s A-L 22.2 mL/m2 RA Area A4C 18.10 cm2 LA Area A4C s MOD 15.76 cm2 RA Vol/ BSA A4C s A-L 31.1 mL/m2 LA Area A2C s MOD 16.27 cm2 Ao Asc Diam d 3.48 cm F: 2.3 - 3.1 LV EF A4C MOD 57.0 % LV EF Teichholz 64.8 % LV EF A2C MOD 60.1 % LVEF (Zuniga's) 55.91 % F: 54 - 74 LV EF Biplane MOD 55.9 % LV Volume 53.85 mL F: 46 - 106 SV 38.37 mL LV Volume Index 30.77 mL/m2 F: 29 - 61 SV Index 21.85 mL/m2 LV Vol Biplane MOD 68.6 mL FS 35.10 % M-Mode TAPSE 1.41 cm (M/F) >1.7 LV Diastology MV E' medial 0.065 (>0.07 m/s) E/A Ratio 0.6 LV E/e MED 6.85 (<14) MV E Vmax 0.44 (0.4-1.3 m/s) MV E' lateral 0.073 (>0.1 m/s) MV A Vmax 0.70 (0.4-1.3 m/s) LV E/e LAT 6.05 (<14) MV E/A Ratio 0.60 MV E/E' medial 6.86 MV E/E' lateral 6.06 Aortic Valve LVOT Area 2.92 cm2 AoV Area Vmax 2.54 cm2 LVOT Vmax 1.16 m/s AoV Area/ BSA (Vmax) 1.45 cm2/m2 LVOT Mean Eduardo. 0.72 m/s WIL Mean Eduardo. 2.42 cm2 LVOT Peak Grad 5.4 mmHg WIL Mean Eduardo. Index 1.38 cm2/m2 LVOT Mean Grad 2.5 mmHg LVOT VTI 0.199 m LVOT Diam s 1.90 cm AoV Vmax 1.34 m/s Velocity Ratio 0.86 AoV Mean Eduardo. 0.87 m/s AoV Peak Grad 7.1 mmHg LVOT SV 58.12 mL AoV Mean Grad 3.6 mmHg AoV VTI 0.258 m AoV Area VTI 2.25 cm2 AoV Area/ BSA (VTI) 1.28 cm/m2 Mitral Valve MV DT 318 (160-240 msec) MV PHT 92 msec MV Area PHT 2.39 cm2 MV VTI 0.231 m MV VTI Annulus 0.235 m MV Area VTI 2.55 (4.0-6.0 cm2) Pulmonary Valve PV Vmax 0.67 (0.5-1.5 m/s) RVOT Peak Gr. 1.16 mmHg PV Peak Grad 1.8 mmHg RVOT Mean Gr. 0.55 mmHg PV Mean Grad 1.1 mmHg RVOT VTI 0.115 m PV VTI 0.148 m RVOT Vmax 0.54 m/s Tricuspid Valve TR Peak Grad 37.3 mmHg TR Vmax 3.06 m/s RA Pressure 8.00 mmHg RVSP (TR) 45.4 mmHg
[2021-04-12] MEDS: Regadenoson 0.4 MG/5 ML SYR IVP (10:45)
== END 2021-04-12 01:33 ==
PROVIDERS: PCP Nurse Practitioner Family; Visit Provider Nurse Practitioner Family
DX: R07.9 Chest pain, unspecified (principal); I50.9 Heart failure, unspecified; E78.5 Hyperlipidemia, unspecified; J44.9 Chronic obstructive pulmonary disease, unspecified; Z87.891 Personal history of nicotine dependence; Z82.49 Family history of ischemic heart disease and other diseases of the circulatory system; I07.1 Rheumatic tricuspid insufficiency
CPT/HCPCS: 78452; 93016; 93018; 93306; 71046; 93017; J2785

== ENCOUNTER 2021-04-14 18:36 | Inpatient (IN) | payer MEDICARE, SELFPAY ==
[2021-04-14] VITALS (20 sets, daily range): BP systolic 90–147; BP diastolic 54–89; PULSE 61–80; RESP 17–32; TEMP 36.1–36.8; O2SAT 65–99
--- NOTE | 2021-04-14 18:44 | W.ED.GENAD ---
Discharge Plan Disposition Patient Disposition: [facility] INPATIENT Condition: Critical Discharge Details Clinical Impression: Non-ST elevation [place] (NSTEMI), Acute electrocardiography changes, Decreased cardiac ejection fraction, Hypoxemia Admit Date/Time: 04/14/21 21:11 Admit Provider: Myles Alvarenga Attending Provider: Myles Alvarenga Primary Care Provider: Camila Osuna ED Provider: Julien Yu Medical Decision Making This is a very pleasant 75-year-old female with a past medical history of CKD, COPD, hyperthyroidism, high cholesterol, osteopenia, who presents today for evaluation of shortness of breath. Patient states that for the last week and 1/2 to 2 weeks she has been mildly short of breath with mild intermittent chest pain. Patient was evaluated by her PCP, on an outpatient basis she had a stress test on 04/12/2021, which was nondiagnostic secondary to her not achieving an adequate heart rate. Her echo showed mild right ventricular dilatation. She was supposed to get outpatient follow-up labs however this did not happen, she presented to her PCPs office today was noted to be hypoxic in the 80s came up to the high 80s on 2 L. PCP recommended that she come to the ER for further evaluation, and after an extensive conversation with the PCP the patient came to the ED after refusing EMS transport. Currently the patient states that she has a small minimal amount of pain with deep breaths, she feels short of breath in general. She does admit to some swelling in her lower extremities as well as mild pain in her right lower extremity. She denies any change in medication or food. She denies any history of long trips surgeries, procedures, PEs or estrogen use. She does admit to a very mild cough. She denies at this time any chest tightness. She denies any significant chest pain currently. She denies any numbness or tingling. She denies any fever or chills. She is a bit of a reserved historian. No other complaints at this time. Physical exam demonstrates +1 to +2 pitting edema in the lower extremities, right calf tenderness in comparison with the left. Slightly diminished lung sounds but no wheezes rales or rhonchi to speak of. On patient's initial arrival she was 65% on pulse oximetry with a good Plath however she was notably conversant, and did not appear overly short of breath. Additionally she had been walking around outside significantly before she came in. She came up to 90s on 3 L nasal cannula. Differential is broad for the patient, but my chief concern at this time is potential pulmonary embolism with a unilateral calf tenderness, her bilateral mild swelling, or hypoxemia with otherwise unremarkable lung sounds. Symptoms do not appear consistent with COPD at this time. She could certainly also demonstrate a component of CHF, but the echo from 2 days ago demonstrated a good ejection fraction at this time, will monitor closely evaluate for concerning etiologies and reassess. 10 PM Bedside ultrasound was performed and the patient has a notably diminished ejection fraction especially in comparison with her echo 2 days ago. At this time her ejection fraction appears more around 20% at max, the both the right and left ventricle appear dilated. This is certainly concerning. EKG demonstrate inverted T wave and depressions in leads II, III, and aVF, a large S wave in lead I, and inverted T waves in V3 V4 and V5. All of these findings are new compared to prior EKG on 04/14/2021. VBG shows mild elevation in her PCO2 65, pH normal. Bicarb 35, this appears to be chronic and not acute. Electrolytes stable, renal function demonstrates a creatinine of 2.2 and a GFR of 21. proBNP notably elevated at 29,000, free T4 is normal in the setting of a low TSH. Covid test negative, D-dimer elevated. At this time very concerned for potential PE with the notable evidence of heart strain. Reviewed the patient's echo from 2 days ago demonstrate mildly high RVSP. In addition to potential PE which we are unable to get a CTA for, mild cardiac ischemia, Takotsubo's cardiomyopathy, are definitely still high on the differential. CT scan was done without contrast and this is relatively unremarkable per virtual radiology. No clear source of the patient's symptoms. Patient was initially hypotensive during her stay here, we did give a gentle 500 cc bolus and this did bring up her blood pressure to the 120s systolic. Certainly makes a bit of a confusing clinical picture. I did contact [facility] cardiology and discussed the case with their cardiology team. They too are concerned with the findings and do agree with the potential for PE this being high on the differential and recommend a Lovenox 1 milligram per kilogram dose twice daily as opposed to heparin. They recommend continued trending of the troponins. They do not have any beds available at this time at [facility], and do recommend recontacting them tomorrow and follow-up with their cardiology team about the patient. [facility] is not currently accepting any patients in transfer. I did discuss with the patient being transported to other outlying facilities however at this time she states clearly that in spite of the potential benefits from going to a larger facility she would like to refuse that transfer currently and stay here at [facility]. Patient understands the risks of this. I discussed the case with the hospitalist Dr. Alvarenga, he agrees with the assessment and plan. I have extensively reviewed the treatment plan with the patient. I have addressed all patient concerns at this time. I have also discussed the plan with the admitting physician and they agree with the current assessment and plan and have agreed to assume responsibility for the patient. All parties demonstrate verbal understanding and agreement with our assessment and plan at this time. The documentation in this chart was dictated using Ripp[employer] dictation software. Please excuse any dictation errors. EKG 19: 21 Rate 67, sinus rhythm, S wave in lead I, ST segment depression in lead II, III, and aVF, with associated T wave inversion, as well as evidence of right heart strain with inverted T wave in V3, V4, V5. Minimal less than 1mm Elevation in V1 and V2 No STEMI FINDINGS: Lungs: There are some very subtle hazy ground-glass changes seen in the lungs not definitely appreciated on prior study. There are several scattered nodules in the left lower lobe, noncalcified. These appear unchanged compared to prior study. Ill-defined right lower lobe opacity is stable as is right middle lobe nodule allowing for respiratory motion and technical differences. Pleural spaces: Unremarkable. No pneumothorax. No pleural effusion. Heart: Coronary artery calcifications/stents noted. Cardiomegaly. Mediastinal space: Small hiatal hernia. Aorta: Moderate atherosclerotic change seen in the vasculature. Lymph nodes: Unremarkable. No enlarged lymph nodes. Bones/joints: Unremarkable. No acute fracture. Soft tissues: Unremarkable. Other findings: Respiratory motion noted. IMPRESSION: Subtle ground-glass change noted in the upper lobes, nonspecific. This can be seen in the setting of early congestive heart failure. Correlation with COVID-19 status recommended if not already performed. Dictated and Authenticated by: Zari Dominguez MD. HPI General Date/Time Provider Initiated Documentation: 04/14/21 18:42. HPI Narrative: This is a very pleasant 75-year-old female with a past medical history of CKD, COPD, hyperthyroidism, high cholesterol, osteopenia, who presents today for evaluation of shortness of breath. Patient states that for the last week and 1/2 to 2 weeks she has been mildly short of breath with mild intermittent chest pain. Patient was evaluated by her PCP, on an outpatient basis she had a stress test on 04/12/2021, which was nondiagnostic secondary to her not achieving an adequate heart rate. Her echo showed mild right ventricular dilatation. She was supposed to get outpatient follow-up labs however this did not happen, she presented to her PCPs office today was noted to be hypoxic in the 80s came up to the high 80s on 2 L. PCP recommended that she come to the ER for further evaluation, and after an extensive conversation with the PCP the patient came to the ED after refusing EMS transport. Currently the patient states that she has a small minimal amount of pain with deep breaths, she feels short of breath in general. She does admit to some swelling in her lower extremities as well as mild pain in her right lower extremity. She denies any change in medication or food. She denies any history of long trips surgeries, procedures, PEs or estrogen use. She does admit to a very mild cough. She denies at this time any chest tightness. She denies any significant chest pain currently. She denies any numbness or tingling. She denies any fever or chills. She is a bit of a reserved historian. No other complaints at this time. Related Data Home Medications Medication Instructions Recorded Confirmed lidocaine [LC-5] 1 film TOPICAL 2-4 times daily PRN 06/20/18 04/14/21 #1 tube folic acid 1 mg tablet 1 mg PO DAILY #90 tab-cap 09/06/20 04/14/21 citalopram 10 mg tablet 10 mg PO DAILY #90 tab-cap 09/23/20 04/14/21 mirtazapine 7.5 mg tablet 7.5 mg PO HS #90 tab-cap 12/01/20 04/14/21 atorvastatin 10 mg tablet 10 mg PO DAILY #90 tab-cap 12/29/20 04/14/21 budesonide-formoterol HFA 160 2 puff INHALATION BID #3 inhaler 02/07/21 04/14/21 mcg-4.5 mcg/actuation aerosol inhaler umeclidinium 62.5 mcg/actuation 1 inh INHALATION DAILY #3 each 02/07/21 04/14/21 blister powder for inhalation furosemide 20 mg tablet 40 mg PO QAM #180 tab-cap 03/24/21 04/14/21 levalbuterol tartrate 45 1 - 2 puff INHALATION Q4H PRN #1 03/24/21 04/14/21 mcg/actuation aerosol inhaler inhaler metoprolol tartrate 25 mg tablet 25 mg PO BID #180 tab 03/24/21 04/14/21 Previous Rx's Medication Instructions Recorded lidocaine [LC-5] 1 film TOPICAL 2-4 times daily PRN 06/20/18 #1 tube folic acid 1 mg tablet 1 mg PO DAILY #90 tab-cap 09/06/20 citalopram 10 mg tablet 10 mg PO DAILY #90 tab-cap 09/23/20 mirtazapine 7.5 mg tablet 7.5 mg PO HS #90 tab-cap 12/01/20 atorvastatin 10 mg tablet 10 mg PO DAILY #90 tab-cap 12/29/20 budesonide-formoterol HFA 160 2 puff INHALATION BID #3 inhaler 02/07/21 mcg-4.5 mcg/actuation aerosol inhaler umeclidinium 62.5 mcg/actuation 1 inh INHALATION DAILY #3 each 02/07/21 blister powder for inhalation furosemide 20 mg tablet 40 mg PO QAM #180 tab-cap 03/24/21 levalbuterol tartrate 45 1 - 2 puff INHALATION Q4H PRN #1 03/24/21 mcg/actuation aerosol inhaler inhaler metoprolol tartrate 25 mg tablet 25 mg PO BID #180 tab 03/24/21 Allergies Allergy/AdvReac Type Severity Reaction Status Date / Time No Known Allergies Allergy Verified 04/14/21 18:54 General JOSE MIGUEL: 2 Review of Systems All systems reviewed & are unremarkable except as noted in HPI and below PFSH Medical History CHF (congestive heart failure) Chronic kidney disease (10/05/16) 02/2019: low-dose SAWYER-I caused hyperkalemia --> d/c'ed! Chronic obstructive lung disease (12/12/11) PFTs 2005: Severe obstruc airway dis; FEV1 24; FEV1/FVC 59% Chronic rhinitis COPD (chronic obstructive pulmonary disease) Depressive disorder (04/14/13) Has tried sertraline (didn't work), Wellbutrin (it made me crazy) Double vision (08/13/14) R eye; [facility] glasses Folate deficiency Hyperlipidemia (12/12/11) 11/2016 labwork: 10-year ASCVD risk ~13.5% --> increased to moderate intensity statin Hyperthyroidism (04/14/13) Long-term Methimazole; stopped in 2011 Hypoalbuminemia IFG (impaired fasting glucose) (12/06/17) Intention tremor (08/29/12) Father had as well Propranolol trial in Aug 2012 Atenolol trial 2017 - works Osteopenia (04/30/13) DEXA 2013 Pulmonary nodules Incidental chest CT 07/2019 --> 6 mo f/u 04/28/2020: STABLE Family History Mother , HF at age 87. Heart disease Father , HF at age 77. Heart disease Sister Heart disease During childhood only? Brother , [place] at age 75. Heart disease Prostate cancer Brother Heart disease Social History Smoking/Tobacco Use Status: Former Tobacco Use Smoking risk assessment performed?: Yes Alcohol Intake: current Alcohol Intake frequency: holidays/special occasions only Drug use: Never Substance use type: does not use Adopted: No Caregiver/Support person: No Foster care: No Household members: none Housing: house Communication Needs: None current occupation: Retired Pets and animals: No Sexually active: No Current gender identity: female What type of physical activity do you participate in: none Seatbelt use: always Do you feel safe at home: Yes Do you feel safe in your relationship?: Yes Exam Narrative Exam Narrative: 1.Const: Well-nourished, Well-developed, appearing stated age 2.Eyes: PERRL, no conjunctival injection, and symmetrical lids. 3.ENT: Atraumatic external nose and ears. Moist MM. Neck: Symmetric, trachea midline, No thyromegaly. 4.CVS: +S1/S2, No murmurs or gallops. Peripheral pulses 2+ and equal in all extremities. Brisk capillary refill in all extremities. 5.RESP: Unlabored respiratory effort, diminished breath sounds throughout, but no wheezes rales or rhonchi. 6.GI: Soft, Nontender/Nondistended, No hepatosplenomegaly. No guarding or rebound. 7.MSK: Normocephalic/Atraumatic, Extremities w/o deformity, mild +1 to +2 pitting edema bilaterally, the right calf is notably more tender to palpation than the left. Dorsalis pedis and posterior tibial pulse are +1 bilaterally, capillary refill is less than 3 seconds. 8.Skin: Warm, Dry. No rashes or lesions. 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 Sensation grossly intact, no focal neurologic deficits. 10.Psych: (AAO) x3. Appropriate mood and affect Critical Care Time Critical Care Time Critical Care Time: Yes Total Critical Care Time: 45 Attestation: Upon my evaluation, this patient had a high probability of imminent or life-threatening deterioration, which required my direct attention, intervention, and personal management. I have personally provided 45 minutes of critical care time exclusive of time spent on separately billable procedures. Time includes review of laboratory data, radiology results, discussion with consultants, and monitoring for potential decompensation. Interventions were performed as documented.
--- NOTE | 2021-04-14 19:00 | RT.EKG_ITS ---
APPROVED REPORT Exam: Resting ECG Reason for Exam: sob Patient Location: E HR:67 bpm ECG Measurements Heart Rate 67 AXIS MO 148 P 75 QRSd 98 QRS 80 QT 441 T -70 QTc 465 Conclusion Sinus rhythm...normal P axis, V-rate 60- 99 Physician: Rate 67, sinus rhythm, S wave in lead I, ST segment depression in lead II, III, and aVF, w ith associated T wave inversion, as well as evidence of right heart strain with inverted T wave in V3 , V4, V5. Minimal less than 1mm Elevation in V1 and V2 No STEMI
[2021-04-14 19:09] LABS: BE (Venous) 14 mmol/L (-2-3); HCO3 (Venous) 39 mmol/L (23-28); O2 Sat (Venous) 98 %; TCO2 (Venous) 35 mmol/L (24-29); pH (Venous) 7.39 (7.31-7.41); pO2 (Venous) 113 mmHg
[2021-04-14 19:10] LABS: Abs Immature Grans 0.02 10^3/uL (0.0-0.06); Absolute Basophil Count 0.05 10^3/uL (0.0-0.2); Absolute Eosinophil Count 0.03 10^3/uL (0.0-0.7); Absolute Lymphocyte Count 0.78 10^3/uL (1.2-3.4); Absolute Monocyte Count 0.58 10^3/uL (0.1-0.8); Absolute Neutrophil Count 3.43 10^3/uL (1.2-6.7); Eosinophils % 0.6; HCT 49.3 % (36.0-46.0); HGB 14.5 g/dL (11.2-15.7); Immature Grans % 0.4; MCHC 29.4 % (32.0-36.0); MCV 102.1 fL (80-95); MPV 9.2 fL (8.0-11.0); Monocytes % 11.9; Neutrophils % 70.1; Nucleated RBC 0 %; Platelet Count 229 10^3/uL (130-400); RBC 4.83 10^6/uL (3.93-5.22); RDW-SD 55.9 fL; WBC 4.89 10^3/uL (4.4-10.8)
[2021-04-14 19:12] LABS: pCO2 (Venous) 65 mmHg (41-51)
[2021-04-14 19:31] LABS: ALT 15 U/L (14-59); AST 20 U/L (15-37); Albumin 3.2 g/dL (3.4-5.0); Alkaline Phosphatase 103 U/L (46-116); Anion Gap 2.9 mmol/L (3-11); BUN 29 mg/dL (7-18); Bilirubin, Total 0.8 mg/dL (0.2-1.0); CO2 38.1 mmol/L (21.0-32.0); CREATININE 2.2 mg/dL (0.55-1.02); Calcium 8.9 mg/dL (8.5-10.1); Chloride 99 mmol/L (98-107); Glucose 180 mg/dL (74-106); Potassium 3.7 mmol/L (3.5-5.1); Sodium 140 mmol/L (136-145); Total Protein 6.7 g/dL (6.4-8.2)
--- NOTE | 2021-04-14 19:33 | NUR.NOTE ---
Pt oxygen saturation 94% on RA. BP 90/50's 500 ml NS bolus given.
[2021-04-14 19:35] LABS: Lipase 179 U/L (73-393); TSH (W/Ref FT4) 0.28 uIU/mL (0.36-3.74)
[2021-04-14 19:37] LABS: Troponin I 0.08 ng/mL (<0.06)
[2021-04-14] MEDS: Normal Saline 500 ML IV (20:01)
--- NOTE | 2021-04-14 20:10 | DI.CT_ITS ---
Exam(s) CT CHEST WO EXAM: CT CHEST WO CLINICAL HISTORY: sob, hypoxic, suspect PE, cant use contrast TECHNIQUE: Imaging Protocol: Axial computed tomography images with coronal and sagittal reformatted images were created and reviewed CONTRAST MATERIAL: Noncontrast COMPARISON: 28 April 2020 FINDINGS: The heart is enlarged, particularly the right atrium. Coronary artery calcifications are seen. The pulmonary arteries appear mildly prominent. Scarring is noted at the lung apices. There are ground- glass opacities in both upper lobes which appear more prominent when compared with the previous exam. There are few small scattered stable areas of nodularity in both lungs. There is respiratory motio n at the lung bases. No pleural or pericardial effusions are seen. There is a small hiatal hernia. Visualized portions of the upper abdomen are unremarkable. No suspicious bony abnormalities are see n. IMPRESSION: Bilateral mild upper lobe ground-glass opacities could represent viral pneumonitis. Correlation with COVID status is recommended.Stable small bilateral pulmonary nodules. RADIATION DOSE DELIVERED: 352.25mGy.cm Total DLP DATA REPOSITORY: All CT scans at this facility are submitted to the National Radiology Data Registry (NRDR) Dose Index Registry (DIR) with the [employer] ([employer]). RADIATION OPTIMIZATION: All CT scans at this facility use at least one of these dose optimization te chniques: automated exposure control; mA and/or kV adjustment per patient size (includes targeted exa ms where dose is matched to clinical indication); or iterative reconstruction.
[2021-04-14 20:13] LABS: COVID-19 PCR Negative (Negative)
[2021-04-14 20:16] LABS: FREE T4 1.23 ng/dL (0.76-1.46)
--- NOTE | 2021-04-14 20:45 | DI.VRAD_ITS ---
PROCEDURE INFORMATION: Exam: CT Chest Without Contrast; Diagnostic Exam date and time: 04/14/2021 7:43 PM Age: 75 years old Clinical indication: Shortness of breath; Patient HX: SOB, hypoxic, suspected pe; Additional info: Unable to use contrast due to kidney function. Therefor without images obtained. TECHNIQUE: Imaging protocol: Diagnostic computed tomography of the chest without contrast. 3D rendering (Not supervised by radiologist): MIP and/or 3D reconstructed images were created by the technologist. Radiation optimization: All CT scans at this facility use at least one of these dose optimization techniques: automated exposure control; mA and/or kV adjustment per patient size (includes targeted exams where dose is matched to clinical indication); or iterative reconstruction. COMPARISON: CT CHEST WO 04/28/2020 12:58 PM FINDINGS: Lungs: There are some very subtle hazy ground-glass changes seen in the lungs not definitely appreciated on prior study. There are several scattered nodules in the left lower lobe, noncalcified. These appear unchanged compared to prior study. Ill-defined right lower lobe opacity is stable as is right middle lobe nodule allowing for respiratory motion and technical differences. Pleural spaces: Unremarkable. No pneumothorax. No pleural effusion. Heart: Coronary artery calcifications/stents noted. Cardiomegaly. Mediastinal space: Small hiatal hernia. Aorta: Moderate atherosclerotic change seen in the vasculature. Lymph nodes: Unremarkable. No enlarged lymph nodes. Bones/joints: Unremarkable. No acute fracture. Soft tissues: Unremarkable. Other findings: Respiratory motion noted. IMPRESSION: Subtle ground-glass change noted in the upper lobes, nonspecific. This can be seen in the setting of early congestive heart failure. Correlation with COVID-19 status recommended if not already performed. Dictated and Authenticated by: Zari Dominguez MD. Ordering:MATTHEW Victoria MD
[2021-04-14 20:48] LABS: INR 1.1 (0.9-1.1); PTT Activated 23.4 sec (21.0-27.5); Prothrombin Time 11.1 sec (9.3-11.0)
[2021-04-14] MEDS: Enoxaparin 80 MG/0.8 ML SYR SC (21:16)
[2021-04-14 21:23] LABS: D-Dimer 1372 ng/mlFEU (<500)
[2021-04-15] VITALS (86 sets, daily range): BP systolic 88–147; BP diastolic 50–89; PULSE 62–89; RESP 13–33; TEMP 36–36.3; O2SAT 60–100
--- NOTE | 2021-04-15 | DI.US_ITS ---
Exam(s) US EXTREMITY VENOUS BI EXAM: US EXTREMITY VENOUS BI CLINICAL HISTORY: Eval for source of possible P.E.. TECHNIQUE: Lower extremity venous ultrasound performed using grayscale, color-flow, and spectral Do ppler analysis. COMPARISON: No exams were available for comparison FINDINGS: The the bilateral common femoral, femoral and popliteal veins demonstrate normal compressibility, aug mentation, and color Doppler. The posterior tibial veins are patent. No saphenous vein thrombosis or other superficial venous thrombosis is seen. No hematoma or Melissa's cyst is seen. IMPRESSION: Negative bilateral lower extremity ultrasound. No evidence of DVT. DATA REPOSITORY:
--- NOTE | 2021-04-15 | DI.RAD_ITS ---
Exam(s) XR CHEST 2V PA LATERAL EXAM: XR CHEST 2V PA LATERAL CLINICAL HISTORY: for VQ scan TECHNIQUE: 2D digital imaging was performed. COMPARISON: CT CT CHEST WO from 04/14/2021 FINDINGS: The heart is enlarged. There is a linear area of atelectasis seen at the right lung base. There is blunting of the left costophrenic angle seen on the lateral view which could indicate a tiny effusion . There is mild apical scarring. No infiltrate is visible. Scoliosis is noted. IMPRESSION: Right basilar atelectasis. Tiny left pleural effusion. No visible infiltrate. DATA REPOSITORY: RADIATION DOSE DELIVERED:
[2021-04-15 00:20] LABS: Troponin I 0.07 ng/mL (<0.06)
--- NOTE | 2021-04-15 00:34 | W.PM.HP.N ---
Date of service: 04/14/21 Time of Service: 23:20 Assessment and Plan Assessment and plan (1) Non-ST elevation HI (NSTEMI): Status: Acute Assessment and plan: Troponin mildly elevated; trending down with 3rd result pending. Cardiology at [facility] recommends contacting them again to discuss further care; transfer. (2) Acute electrocardiography changes: Status: Acute Assessment and plan: Along with hypoxia, mildly elevated troponin and decreased EF on bedside echocardiogram. Concerned primarily for pulmonary embolism. (3) Decreased cardiac ejection fraction: Status: Acute Assessment and plan: Formal echo on 04/12/2021 with EF of 60%. Bedisde echo in ED with reduced EF estimated to be 20%. Significantly elevated NTProBNP. CT chest w/o contrast did show ground glass opacities; possible edema. Given renal findings no IV push lasix initiated. AM creatinine pending. Consider lasix drip. After admission overnight, the following AM it was found that there is no echocardiogram availability. Cardiology consulted. Also f/u with [facility] regarding bed availability. No ST elevation on EKG, though changes noted in comparison to EKG on 04/12/2021. Subacute event? Pulmonary embolism? Cardiomyopathy? (4) Acute respiratory failure with hypoxia: Status: Acute Assessment and plan: She does have COPD and will cont her home inhalers. Does not appear, though, to have acute exacerbation. Now with O2 saturations in the low to upper 90's on 3L NC. Pulmonary embolism is high on the list of etiologies, but d/t her renal function it was felt a CTA chest was too riskly. Venous US of BLEs ordered. Rechecking creatinine today after given a 500ml fluid bolus in the ED. (5) Hyperlipidemia: Status: Chronic Assessment and plan: On atorvastatin; continue Qualifiers: Hyperlipidemia type: unspecified Qualified Code(s): E78.5 - Hyperlipidemia, unspecified (6) Chronic obstructive lung disease: Status: Chronic Assessment and plan: Cont symbicort, umeclidinium inhaler, prn albuterol. No steroid initiated; does not appear to be an exacerbation. Qualifiers: COPD type: unspecified COPD Qualified Code(s): J44.9 - Chronic obstructive pulmonary disease, unspecified (7) Chronic kidney disease: Status: Chronic Assessment and plan: acute on chronic kdiney disease. Was given NS 500ml IV in ED. Concerned with CHF given reduced EF on bedside echo and markedly elevated NTProBNP. Waiting cardiology advice and repeat creatinine before initiating lasix drip. Qualifiers: Chronic kidney disease stage: unspecified stage Qualified Code(s): N18.9 - Chronic kidney disease, unspecified (8) Venous stasis dermatitis: Status: Acute Assessment and plan: Chronic venous stasis with skin changes of L nelson. Elevated legs and SCDs. History of Present Illness History of Present Illness Chief Complaint: Shortness of air Narrative: This is a 75-year-old female with a past medical history of CKD, COPD, hyperthyroidism, high cholesterol, osteopenia, who presented for evaluation of shortness of breath. She endorses that for the last week and 1/2 to 2 weeks she has been mildly short of breath with mild intermittent chest pain/pressure. Patient was evaluated by her PCP and subsequently had an NM stress test on 04/12/2021, which was nondiagnostic secondary to her not achieving an adequate heart rate. Her echo showed mild right ventricular dilatation. EF of 60%. Mildly elevated RVSP. She was supposed to get outpatient follow-up labs however that did not occur prior to her presenting to the ED. In her PCPs office on day of this admission she was noted to be hypoxic with O2 saturations in the 80s; only increasing to the high 80s on 2 L. PCP recommended that she come to the ER for further evaluation, and after an extensive conversation with the PCP the patient came to the ED after refusing EMS transport. In the ED the patient stated that she has a small minimal amount of pain with deep breaths and feeling short of breath in general. She does have chronic swelling of her lower legs. She denied any history of long trips surgeries, procedures, PEs or estrogen use. + very mild cough. She deniedany significant chest pain at the time of her ED evaluation. She denied any fever or chills, N/V/abd pain. She was noted to be a reserved historian. Significant findings were: Normal WBC count and Hgb. VBG pCO2 of 65, elevated base excess. Normal Na, K, elevated carbon dioxide. BUN 29, creatinine 2.2 (1.9 on 03/22/2021. Previous baseline between 1.6 - 1.8). Glucose 180 (A1c 6.1 on 03/22/2021). Normal LFTs and bili. NTProBNP 31279. Troponin 0.08 > 0.07. D-dimer 1372. TSH 0.28. Free T4 1.23. COVID [address] chest: Subtle ground-glass change noted in the upper lobes, nonspecific. ED physician, Dr Yu performed a bedisde Echo that showed a diminished EF; estimated to be 20%. EKG with inverted T waves and ST depression in II, II, aVF. Inverte T waves in V3, V4, V5. Given initial low BP she was given a bolus of 500ml NS. Dr Yu spoke with [facility] cardiology. Given concerns for pulmonary embolisms they agreed with Lovenox 1mg/kg BID. Trend troponins. No bed available but recommended f/u with them in the AM. [facility] also had no bed available. Pt did not wanted [facility]. Review of Systems All systems reviewed & are unremarkable except as noted in HPI and below PFSH Medical History CHF (congestive heart failure) Chronic kidney disease (10/05/16) 02/2019: low-dose SAWYER-I caused hyperkalemia --> d/c'ed! Chronic obstructive lung disease (12/12/11) PFTs 2005: Severe obstruc airway dis; FEV1 24; FEV1/FVC 59% Chronic rhinitis COPD (chronic obstructive pulmonary disease) Depressive disorder (04/14/13) Has tried sertraline (didn't work), Wellbutrin (it made me crazy) Double vision (08/13/14) R eye; EOM [facility] Prism glasses Folate deficiency Hyperlipidemia (12/12/11) 11/2016 labwork: 10-year ASCVD risk ~13.5% --> increased to moderate intensity statin Hyperthyroidism (04/14/13) Long-term Methimazole; stopped in 2011 Hypoalbuminemia IFG (impaired fasting glucose) (12/06/17) Intention tremor (08/29/12) Father had as well Propranolol trial in Aug 2012 Atenolol trial 2017 - works Osteopenia (04/30/13) DEXA 2012 Pulmonary nodules Incidental chest CT 07/2019 --> 6 mo f/u 04/28/2020: STABLE Family History Mother , HF at age 87. Heart disease Father , HF at age 77. Heart disease Sister Heart disease During childhood only? Brother , HI at age 75. Heart disease Prostate cancer Brother Heart disease Social History Smoking/Tobacco Use Status: Former Tobacco Use Smoking risk assessment performed?: Yes Alcohol Intake: current Alcohol Intake frequency: holidays/special occasions only Drug use: Never Substance use type: does not use Adopted: No Caregiver/Support person: No Foster care: No Household members: none Housing: house Communication Needs: None current occupation: Retired Pets and animals: No Sexually active: No Current gender identity: female What type of physical activity do you participate in: none Seatbelt use: always Do you feel safe at home: Yes Do you feel safe in your relationship?: Yes Meds Allergies and Home Medications Allergies Allergy/AdvReac Type Severity Reaction Status Date / Time No Known Allergies Allergy Verified 04/14/21 18:54 Home Medications Medication Instructions Recorded Confirmed Type lidocaine [LC-5] 1 film TOPICAL 2-4 times daily PRN 06/20/18 04/14/21 Rx #1 tube folic acid 1 mg tablet 1 mg PO DAILY #90 tab-cap 09/06/20 04/14/21 Rx citalopram 10 mg tablet 10 mg PO DAILY #90 tab-cap 09/23/20 04/14/21 Rx mirtazapine 7.5 mg tablet 7.5 mg PO HS #90 tab-cap 12/01/20 04/14/21 Rx atorvastatin 10 mg tablet 10 mg PO DAILY #90 tab-cap 12/29/20 04/14/21 Rx budesonide-formoterol HFA 160 2 puff INHALATION BID #3 inhaler 02/07/21 04/14/21 Rx mcg-4.5 mcg/actuation aerosol inhaler umeclidinium 62.5 mcg/actuation 1 inh INHALATION DAILY #3 each 02/07/21 04/14/21 Rx blister powder for inhalation furosemide 20 mg tablet 40 mg PO QAM #180 tab-cap 03/24/21 04/14/21 Rx levalbuterol tartrate 45 1 - 2 puff INHALATION Q4H PRN #1 03/24/21 04/14/21 Rx mcg/actuation aerosol inhaler inhaler metoprolol tartrate 25 mg tablet 25 mg PO BID #180 tab 03/24/21 04/14/21 Rx Exam Const General: cooperative and no acute distress Nutritional Appearance: thin Orientation: alert and oriented x3 Chest Chest: no localized rib tenderness Resp Effort & Inspection: normal respiratory effort Auscultation: clear to auscultation bilaterally and diminished lung sounds Cardio Rate: regular rate Rhythm: regular rhythm Heart Sounds: S1 normal, S2 normal and no murmurs GI Palpation: soft and nontender Skin General skin exam: erythema (Shins; R> L. ) and other (desquamation of R nelson) Neuro General: moves all extremities and no focal motor deficits Cognition: normal cognition Speech: speech normal Extrem General: edema Laterality: bilateral (2+) and other (Generalized tenderness of both calves. ) Psych Appearance: grossly normal Mental Status: mental status grossly normal Speech and Movement: speech and movement normal Affect: normal affect Results Labs Result diagrams: 04/14/21 18:58 04/14/21 18:58 Labs: Laboratory Results - last 24 hr 04/14/21 04/14/21 04/14/21 18:58 18:58 18:58 WBC 4.89 RBC 4.83 Hgb 14.5 Hct 49.3 H MCV 102.1 H MCH 30.0 MCHC 29.4 L RDW 15.0 H Plt Count 229 MPV 9.2 Immature Gran % 0.4 Neutrophils % 70.1 Lymphocytes % 16.0 Monocytes % 11.9 Eosinophils % 0.6 Basophils % 1.0 Nucleated RBC % 0 Absolute Neutrophils 3.43 Absolute Lymphocytes 0.78 L Absolute Monocytes 0.58 Absolute Eosinophils 0.03 Absolute Basophils 0.05 PT INR APTT D-Dimer VBG pH VBG pCO2 VBG pO2 VBG HCO3 VBG Total CO2 VBG O2 Saturation VBG Base Excess Sodium 140 Potassium 3.7 Chloride 99 Carbon Dioxide 38.1 H Anion Gap 2.9 L BUN 29 H Creatinine 2.2 H Estimated GFR/1.73 m2 21.70 Glucose 180 H Calcium 8.9 Total Bilirubin 0.8 AST 20 ALT 15 Alkaline Phosphatase 103 Troponin I 0.08 H* NT-Pro-B Natriuret Pep 17067 H Total Protein 6.7 Albumin 3.2 L Lipase 179 TSH 0.28 L Free T4 1.23 COVID-19 Source SARS-CoV-2 (PCR) 04/14/21 04/14/21 04/14/21 18:58 19:17 20:28 WBC RBC Hgb Hct MCV MCH MCHC RDW Plt Count MPV Immature Gran % Neutrophils % Lymphocytes % Monocytes % Eosinophils % Basophils % Nucleated RBC % Absolute Neutrophils Absolute Lymphocytes Absolute Monocytes Absolute Eosinophils Absolute Basophils PT INR APTT D-Dimer 1372 H VBG pH 7.39 VBG pCO2 65 H* VBG pO2 113 VBG HCO3 39 H VBG Total CO2 35 H VBG O2 Saturation 98 VBG Base Excess 14 H Sodium Potassium Chloride Carbon Dioxide Anion Gap BUN Creatinine Estimated GFR/1.73 m2 Glucose Calcium Total Bilirubin AST ALT Alkaline Phosphatase Troponin I NT-Pro-B Natriuret Pep Total Protein Albumin Lipase TSH Free T4 COVID-19 Source NASOPHARYX SARS-CoV-2 (PCR) Negative 04/14/21 04/14/21 20:28 23:50 WBC RBC Hgb Hct MCV MCH MCHC RDW Plt Count MPV Immature Gran % Neutrophils % Lymphocytes % Monocytes % Eosinophils % Basophils % Nucleated RBC % Absolute Neutrophils Absolute Lymphocytes Absolute Monocytes Absolute Eosinophils Absolute Basophils PT 11.1 H INR 1.1 APTT 23.4 D-Dimer VBG pH VBG pCO2 VBG pO2 VBG HCO3 VBG Total CO2 VBG O2 Saturation VBG Base Excess Sodium Potassium Chloride Carbon Dioxide Anion Gap BUN Creatinine Estimated GFR/1.73 m2 Glucose Calcium Total Bilirubin AST ALT Alkaline Phosphatase Troponin I 0.07 H NT-Pro-B Natriuret Pep Total Protein Albumin Lipase TSH Free T4 COVID-19 Source SARS-CoV-2 (PCR) Last Vital Signs Temp 36.1 C L 04/14/21 23:00 Pulse 70 04/14/21 23:00 Resp 22 04/14/21 23:00 BP 133/89 04/14/21 23:00 Pulse Ox 97 04/14/21 23:00
[2021-04-15] MEDS: Mirtazapine 15 MG TAB 7.5 MG PO ×2 (01:03→22:10)
[2021-04-15 07:12] LABS: Anion Gap -4.8 mmol/L (3-11); BUN 28 mg/dL (7-18); CO2 44.8 mmol/L (21.0-32.0); Calcium 8.7 mg/dL (8.5-10.1); Chloride 104 mmol/L (98-107); Estimated GFR 24.22 (mL/min/1.73m2); Glucose 130 mg/dL (74-106); Potassium 4.3 mmol/L (3.5-5.1); Sodium 144 mmol/L (136-145)
[2021-04-15 07:20] LABS: Troponin I 0.06 ng/mL (<0.06)
--- NOTE | 2021-04-15 08:13 | W.PM.PROGNOT ---
Subjective Subjective Interval history since last seen: Night eventful. Orthopneic. BP 88/57, HR in the 80s. PVCs, 1st degree AV block. O2 on 3L - 95% and better. Lasix gtt at low dose is being attempted. Objective Last Vital Signs Temp 36.1 C L 04/14/21 23:00 Pulse 64 04/15/21 04:01 Resp 18 04/15/21 04:01 BP 99/54 L 04/15/21 04:01 Pulse Ox 98 04/15/21 04:01 Laboratory Results - last 24 hr 04/14/21 04/14/21 04/14/21 18:58 18:58 18:58 WBC 4.89 RBC 4.83 Hgb 14.5 Hct 49.3 H MCV 102.1 H MCH 30.0 MCHC 29.4 L RDW 15.0 H Plt Count 229 MPV 9.2 Immature Gran % 0.4 Neutrophils % 70.1 Lymphocytes % 16.0 Monocytes % 11.9 Eosinophils % 0.6 Basophils % 1.0 Nucleated RBC % 0 Absolute Neutrophils 3.43 Absolute Lymphocytes 0.78 L Absolute Monocytes 0.58 Absolute Eosinophils 0.03 Absolute Basophils 0.05 PT INR APTT D-Dimer VBG pH VBG pCO2 VBG pO2 VBG HCO3 VBG Total CO2 VBG O2 Saturation VBG Base Excess Sodium 140 Potassium 3.7 Chloride 99 Carbon Dioxide 38.1 H Anion Gap 2.9 L BUN 29 H Creatinine 2.2 H Estimated GFR/1.73 m2 21.70 Glucose 180 H Calcium 8.9 Total Bilirubin 0.8 AST 20 ALT 15 Alkaline Phosphatase 103 Troponin I 0.08 H* NT-Pro-B Natriuret Pep 59382 H Total Protein 6.7 Albumin 3.2 L Lipase 179 TSH 0.28 L Free T4 1.23 COVID-19 Source SARS-CoV-2 (PCR) 04/14/21 04/14/21 04/14/21 18:58 19:17 20:28 WBC RBC Hgb Hct MCV MCH MCHC RDW Plt Count MPV Immature Gran % Neutrophils % Lymphocytes % Monocytes % Eosinophils % Basophils % Nucleated RBC % Absolute Neutrophils Absolute Lymphocytes Absolute Monocytes Absolute Eosinophils Absolute Basophils PT INR APTT D-Dimer 1372 H VBG pH 7.39 VBG pCO2 65 H* VBG pO2 113 VBG HCO3 39 H VBG Total CO2 35 H VBG O2 Saturation 98 VBG Base Excess 14 H Sodium Potassium Chloride Carbon Dioxide Anion Gap BUN Creatinine Estimated GFR/1.73 m2 Glucose Calcium Total Bilirubin AST ALT Alkaline Phosphatase Troponin I NT-Pro-B Natriuret Pep Total Protein Albumin Lipase TSH Free T4 COVID-19 Source NASOPHARYX SARS-CoV-2 (PCR) Negative 04/14/21 04/14/21 04/15/21 20:28 23:50 06:05 WBC RBC Hgb Hct MCV MCH MCHC RDW Plt Count MPV Immature Gran % Neutrophils % Lymphocytes % Monocytes % Eosinophils % Basophils % Nucleated RBC % Absolute Neutrophils Absolute Lymphocytes Absolute Monocytes Absolute Eosinophils Absolute Basophils PT 11.1 H INR 1.1 APTT 23.4 D-Dimer VBG pH VBG pCO2 VBG pO2 VBG HCO3 VBG Total CO2 VBG O2 Saturation VBG Base Excess Sodium 144 Potassium 4.3 Chloride 104 Carbon Dioxide 44.8 H Anion Gap -4.8 L BUN 28 H Creatinine 2.0 H Estimated GFR/1.73 m2 24.22 Glucose 130 H Calcium 8.7 Total Bilirubin AST ALT Alkaline Phosphatase Troponin I 0.07 H NT-Pro-B Natriuret Pep Total Protein Albumin Lipase TSH Free T4 COVID-19 Source SARS-CoV-2 (PCR) 04/15/21 06:05 WBC RBC Hgb Hct MCV MCH MCHC RDW Plt Count MPV Immature Gran % Neutrophils % Lymphocytes % Monocytes % Eosinophils % Basophils % Nucleated RBC % Absolute Neutrophils Absolute Lymphocytes Absolute Monocytes Absolute Eosinophils Absolute Basophils PT INR APTT D-Dimer VBG pH VBG pCO2 VBG pO2 VBG HCO3 VBG Total CO2 VBG O2 Saturation VBG Base Excess Sodium Potassium Chloride Carbon Dioxide Anion Gap BUN Creatinine Estimated GFR/1.73 m2 Glucose Calcium Total Bilirubin AST ALT Alkaline Phosphatase Troponin I 0.06 NT-Pro-B Natriuret Pep Total Protein Albumin Lipase TSH Free T4 COVID-19 Source SARS-CoV-2 (PCR)
[2021-04-15] MEDS: Umeclidinium 7 CAP INHALER 1 CAP IH (08:17)
[2021-04-15] MEDS: Budesonide/Formoterol 160/4.5 6 GM 60 PUFF INH IH ×2 (08:17→20:39)
--- NOTE | 2021-04-15 08:38 | PDOC.CMIN ---
- If Service Date Differs Date of service: 04/15/21 Time of Service: 08:38 Care Management Initial Assess REASON FOR HOSPITALIZATION:: NSTEMI PAST MEDICAL HISTORY/PAST SURGICAL HISTORY:: Medical History . CHF (congestive heart failure). Chronic kidney disease (10/05/16). 02/2019: low-dose SAWYER-I caused hyperkalemia --> d/c'ed! Chronic obstructive lung disease (12/12/11). PFTs 2006: Severe obstruc airway dis; FEV1 24; FEV1/FVC 59%. Chronic rhinitis. COPD (chronic obstructive pulmonary disease). Depressive disorder (04/14/13). Has tried sertraline (didn't work), Wellbutrin (it made me crazy). Double vision (08/13/14). R eye; EOM. [facility] Prism glasses. Folate deficiency. Hyperlipidemia (12/12/11). 11/2016 labwork: 10-year ASCVD risk ~13.5% --> increased to moderate intensity statin. Hyperthyroidism (04/14/13). Long-term Methimazole; stopped in 2011. Hypoalbuminemia. IFG (impaired fasting glucose) (12/06/17). Intention tremor (08/29/12). Father had as well. Propranolol trial in Aug 2012. Atenolol trial 2017 - works. Osteopenia (04/30/13). DEXA 2012. Pulmonary nodules. Incidental chest CT 07/2019 --> 6 mo f/u 04/28/2020: STABLE PREVIOUS FUNCTIONAL STATUS/SOCIAL/FAMILY SUPPORTS:: Mayra lives alone in a single family home in [place]. 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 She still keeps in touch with the boys she cared for. Mayra states she has no family in this country. She does have a couple of life long friends from [place] who live in [place]. They are her contacts for medical issues. Mayra is independent with all care and ADLs but her activity is limited by her COPD. CURRENT FUNCTIONAL STATUS:: Mayra was sitting up in bed when CM met with her. She was pleasant and engaged easily with CM, known to her from a previous admission. She shared that she has been getting weaker and weaker over the past few months. She has agreed to be transferred to [facility] for a cardiac cath procedure. She voiced some concerns about the cost of the ambulance but CM was able to reassure her that her insurance would cover the expense. Mayra also verbalized that she was a bit bored so CM provided her with some books from the [employer] and word search books. ADVANCE DIRECTIVES:: none on file Has patient been provided with info about the portal/API?: Yes Did the patient sign up for the portal?: No CODE STATUS:: Full Code INSURANCE COVERAGE / FINANCIAL ISSUES:: Medicare. AARP CURRENT HOME/COMMUNITY SERVICES/EQUIPMENT:: none PRIMARY CARE PHYSICIAN:: Camila Osuna POTENTIAL DISCHARGE NEEDS:: Follow up with PCP and plan of care PATIENT/FAMILY EDUCATION NEEDS:: Review of discharge plan, medications, follow up plan, Ask Me Three TRANSPORTATION:: to be determoned by disposition PLAN:: Mayra will be transferred to [facility] for a cardiac cath as soon as a bed is available. She will transport via ambulance coordinated by nursing tea and spice supervisor. CM will continue to support Mayra and her discharge planning needs.
--- NOTE | 2021-04-15 08:46 | W.CARDCONSUL ---
Date of service: 04/15/21 Time of Service: 08:46 Assessment and Plan Assessment and plan (1) Acute respiratory failure with hypoxia: Status: Acute (2) Chronic obstructive lung disease: Status: Chronic Qualifiers: COPD type: unspecified COPD Qualified Code(s): J44.9 - Chronic obstructive pulmonary disease, unspecified (3) Chronic kidney disease: Status: Chronic Assessment and plan: My impression would be that the patient has severe chronic pulmonary disease, now acutely worse. I do not think her elevated troponin represents acute coronary syndrome. 3 days ago she had evidence of normal myocardial perfusion, normal left ventricular ejection fraction. We cannot currently repeat her echo as testing is unavailable. I think that a right heart catheterization would be very informative. She could be considered for left heart catheterization as well if clinically indicated and if her repeat echo does show a change This could be accomplished best by transfer to a tertiary care center, either [facility] or the [facility] Recommendations were discussed with the nurse, will forward them to the hospitalist I remain available for further discussion Qualifiers: Chronic kidney disease stage: unspecified stage Qualified Code(s): N18.9 - Chronic kidney disease, unspecified History of Present Illness History of Present Illness Chief Complaint: Shortness of breath Narrative: Cardiac evaluation is requested in this 75-year-old woman who was admitted to the hospital overnight. She is an extremely poor historian. Reportedly she has been short of breath for at least several weeks if not longer. She does have a working diagnosis of COPD and chronic respiratory insufficiency due to prior tobacco use. On April 12, she had cardiac testing performed. This included an echocardiogram which showed left ventricular systolic function within the range of normal. EF was 55 to 60% with normal wall motion. The right ventricle and right atrium were both dilated. The left atrium was mildly enlarged. Estimated right ventricular systolic pressure was 45 mmHg she had both mitral and tricuspid regurgitation. She also had a pharmacologic myocardial perfusion imaging study which showed no evidence of myocardial ischemia. It was noted that she desaturated on the treadmill with pulse ox down into the 70s with associated shortness of breath She came to the ER yesterday, though she cannot specifically tell me why. Her breathing is better today. She did not experience any chest discomfort. I was not able to elicit any history of palpitations. She has chronic peripheral edema worse on the right than the left for which she has been on low-dose Lasix. In 2018 she was felt to have diastolic heart failure. Echo at that time was similar. She was described as being hypoxic but not wheezing EKG on admission showed right and left atrial abnormality, diffuse nondiagnostic ST-T abnormalities Troponin is borderline abnormal at 0.07 Arterial blood gas shows CO2 retention Chest x-ray was done on April 12, no acute pulmonary disease, cardiomegaly described The patient has not had a CTA because her creatinine is chronically abnormal, approximately 2.0. It was 1.7 in 2019 Reportedly the patient had a [id number] ultrasound done in the ER yesterday, reporting severe left ventricular dysfunction, apparently new compared to the Transfer to [facility] has been discussed but not completed due to lack of available beds Consults Consult date: 04/15/21 Requesting physician: Myles Alvarenga Review of Systems Narrative: Review of systems is extremely limited as the patient is not able to provide information [facility] Medical History CHF (congestive heart failure) Chronic kidney disease (10/05/16) 02/2019: low-dose SAWYER-I caused hyperkalemia --> d/c'ed! Chronic obstructive lung disease (12/12/11) PFTs 2005: Severe obstruc airway dis; FEV1 24; FEV1/FVC 59% Chronic rhinitis COPD (chronic obstructive pulmonary disease) Depressive disorder (04/14/13) Has tried sertraline (didn't work), Wellbutrin (it made me crazy) Double vision (08/13/14) R eye; EOM [facility] glasses Folate deficiency Hyperlipidemia (12/12/11) 11/2016 labwork: 10-year ASCVD risk ~13.5% --> increased to moderate intensity statin Hyperthyroidism (04/14/13) Long-term Methimazole; stopped in 2011 Hypoalbuminemia IFG (impaired fasting glucose) (12/06/17) Intention tremor (08/29/12) Father had as well Propranolol trial in Aug 2012 Atenolol trial 2017 - works Osteopenia (04/30/13) DEXA 2012 Pulmonary nodules Incidental chest CT 07/2019 --> 6 mo f/u 04/28/2020: STABLE Family History Mother , HF at age 87. Heart disease Father , HF at age 77. Heart disease Sister Heart disease During childhood only? Brother , [place] at age 75. Heart disease Prostate cancer Brother Heart disease Social History Smoking/Tobacco Use Status: Former Tobacco Use Smoking risk assessment performed?: Yes Alcohol Intake: current Alcohol Intake frequency: holidays/special occasions only Drug use: Never Substance use type: does not use Adopted: No Caregiver/Support person: No Foster care: No Household members: none Housing: house Communication Needs: None current occupation: Retired Pets and animals: No Sexually active: No Current gender identity: female What type of physical activity do you participate in: none Seatbelt use: always Do you feel safe at home: Yes Do you feel safe in your relationship?: Yes Exam Narrative Exam Narrative: Well-developed well-nourished woman no acute distress poor historian Eyes Pupils: PERRL EOM: EOM intact bilaterally Neck Other: Normal carotid upstrokes without bruits, no neck vein distention Resp Other: Diminished breath sounds throughout, no wheezes or crackles Cardio Jugular venous pressure: no JVD Rhythm: regular rhythm Other: Heart is regular, no murmur or gallop Skin Other: Suggest mild chronic venous stasis changes more on the right than the left Extrem Other: No edema on the left, trace to 1+ on the right Results Last Vital Signs Temp 36.1 C L 04/14/21 23:00 Pulse 64 04/15/21 04:01 Resp 18 04/15/21 04:01 BP 99/54 L 04/15/21 04:01 Pulse Ox 98 04/15/21 04:01 Labs Result diagrams: 04/14/21 18:58 04/15/21 06:05 Labs: Laboratory Results - last 24 hr 04/14/21 04/14/21 04/14/21 18:58 18:58 18:58 WBC 4.89 RBC 4.83 Hgb 14.5 Hct 49.3 H MCV 102.1 H MCH 30.0 MCHC 29.4 L RDW 15.0 H Plt Count 229 MPV 9.2 Immature Gran % 0.4 Neutrophils % 70.1 Lymphocytes % 16.0 Monocytes % 11.9 Eosinophils % 0.6 Basophils % 1.0 Nucleated RBC % 0 Absolute Neutrophils 3.43 Absolute Lymphocytes 0.78 L Absolute Monocytes 0.58 Absolute Eosinophils 0.03 Absolute Basophils 0.05 PT INR APTT D-Dimer VBG pH VBG pCO2 VBG pO2 VBG HCO3 VBG Total CO2 VBG O2 Saturation VBG Base Excess Sodium 140 Potassium 3.7 Chloride 99 Carbon Dioxide 38.1 H Anion Gap 2.9 L BUN 29 H Creatinine 2.2 H Estimated GFR/1.73 m2 21.70 Glucose 180 H Calcium 8.9 Total Bilirubin 0.8 AST 20 ALT 15 Alkaline Phosphatase 103 Troponin I 0.08 H* NT-Pro-B Natriuret Pep 36685 H Total Protein 6.7 Albumin 3.2 L Lipase 179 TSH 0.28 L Free T4 1.23 COVID-19 Source SARS-CoV-2 (PCR) 04/14/21 04/14/21 04/14/21 18:58 19:17 20:28 WBC RBC Hgb Hct MCV MCH MCHC RDW Plt Count MPV Immature Gran % Neutrophils % Lymphocytes % Monocytes % Eosinophils % Basophils % Nucleated RBC % Absolute Neutrophils Absolute Lymphocytes Absolute Monocytes Absolute Eosinophils Absolute Basophils PT INR APTT D-Dimer 1372 H VBG pH 7.39 VBG pCO2 65 H* VBG pO2 113 VBG HCO3 39 H VBG Total CO2 35 H VBG O2 Saturation 98 VBG Base Excess 14 H Sodium Potassium Chloride Carbon Dioxide Anion Gap BUN Creatinine Estimated GFR/1.73 m2 Glucose Calcium Total Bilirubin AST ALT Alkaline Phosphatase Troponin I NT-Pro-B Natriuret Pep Total Protein Albumin Lipase TSH Free T4 COVID-19 Source NASOPHARYX SARS-CoV-2 (PCR) Negative 04/14/21 04/14/21 04/15/21 20:28 23:50 06:05 WBC RBC Hgb Hct MCV MCH MCHC RDW Plt Count MPV Immature Gran % Neutrophils % Lymphocytes % Monocytes % Eosinophils % Basophils % Nucleated RBC % Absolute Neutrophils Absolute Lymphocytes Absolute Monocytes Absolute Eosinophils Absolute Basophils PT 11.1 H INR 1.1 APTT 23.4 D-Dimer VBG pH VBG pCO2 VBG pO2 VBG HCO3 VBG Total CO2 VBG O2 Saturation VBG Base Excess Sodium 144 Potassium 4.3 Chloride 104 Carbon Dioxide 44.8 H Anion Gap -4.8 L BUN 28 H Creatinine 2.0 H Estimated GFR/1.73 m2 24.22 Glucose 130 H Calcium 8.7 Total Bilirubin AST ALT Alkaline Phosphatase Troponin I 0.07 H NT-Pro-B Natriuret Pep Total Protein Albumin Lipase TSH Free T4 COVID-19 Source SARS-CoV-2 (PCR) 04/15/21 06:05 WBC RBC Hgb Hct MCV MCH MCHC RDW Plt Count MPV Immature Gran % Neutrophils % Lymphocytes % Monocytes % Eosinophils % Basophils % Nucleated RBC % Absolute Neutrophils Absolute Lymphocytes Absolute Monocytes Absolute Eosinophils Absolute Basophils PT INR APTT D-Dimer VBG pH VBG pCO2 VBG pO2 VBG HCO3 VBG Total CO2 VBG O2 Saturation VBG Base Excess Sodium Potassium Chloride Carbon Dioxide Anion Gap BUN Creatinine Estimated GFR/1.73 m2 Glucose Calcium Total Bilirubin AST ALT Alkaline Phosphatase Troponin I 0.06 NT-Pro-B Natriuret Pep Total Protein Albumin Lipase TSH Free T4 COVID-19 Source SARS-CoV-2 (PCR)
[2021-04-15] MEDS: Folic Acid 1 MG TAB PO (08:50)
[2021-04-15] MEDS: Normal Saline Flush 10 ML SYR (08:50)
[2021-04-15] MEDS: Citalopram 10 MG TAB PO (08:50)
--- NOTE | 2021-04-15 12:30 | RT.EKG_ITS ---
APPROVED REPORT Exam: Resting ECG Reason for Exam: new onset CHF Patient Location: I HR:71 bpm ECG Measurements Heart Rate 71 AXIS LA 154 P 89 QRSd 97 QRS 57 QT 418 T -29 QTc 455 Conclusion Sinus rhythm...normal P axis, V-rate 60- [address]-T abnormalities
--- NOTE | 2021-04-15 12:30 | DI.NM_ITS ---
Exam(s) NM LUNG SCAN VENT PERF GRP EXAM: NM LUNG SCAN VENT PERF GRP CLINICAL HISTORY: suspected PE. TECHNIQUE: Injected Dose: Ventilation: 30 mCi Tc-99m DTPA via inhalation Perfusion: 4 mCi Tc-99m MAA via IV COMPARISON: CT CT CHEST WO from 04/14/2021 CR XR CHEST 2V PA LATERAL from 04/15/2021 FINDINGS: Chest X-Ray: Mild fibrotic changes. Linear atelectasis right lung base. Tiny left pleural effusion. Perfusion: Diffusely heterogeneous. No mismatched defects Ventilation: Extreme diffuse bilateral clumping of the radiopharmaceutical, greater in the upper lobe s, consistent with changes of COPD and emphysema.. IMPRESSION: 1. Low probability VQ examination. Ventilation findings of COPD and some element of air trapping.... Modified PIOPED II criteria Probability Criteria High Two or more segments of V/Q mismatch Low Normal Perfusion, Non segmental perfusion abnormalitie s, pleural effusion in at least 1/3 of pleural cavity with no other defect Radiograph/perfusion matched defect in mid to upper lung confined to segment, one to three small segmental perfusion defects (<25% of segment) Perfusion defect smaller than corresponding radiogra phic lesion. Intermediate All other findings DATA REPOSITORY:
--- NOTE | 2021-04-15 15:52 | DSE_ITS ---
Date of service: 04/15/21 Time of Service: 15:52 DS: Diagnosis Discharge Diagnosis (1) Chronic respiratory failure with hypoxia: Status: Acute (2) Acute CHF: Status: Acute Asessment and Plan: Depressed EF on bedside ultrasound in ED (3) Acute electrocardiography changes: Status: Acute (4) Elevated troponin: Status: Acute (5) Decreased cardiac ejection fraction: Status: Acute (6) Cor pulmonale: Status: Suspected (7) Pulmonary hypertension: Status: Chronic (8) Chronic obstructive lung disease: Status: Chronic (9) Chronic kidney disease: Status: Chronic (10) COVID-19 ruled out by laboratory testing: Status: Ruled-out Discharge Plan Disposition Patient Disposition: [facility] Condition: Fair Discharge Details Reason For Visit: Acute Hypoxic, Hypercarbic Respiratory Failure Admit Date/Time: 04/14/21 21:11 Admit Provider: Myles Alvarenga Attending Provider: Myles Alvarenga Primary Care Provider: Camila Osuna Hospital Course Hospital Course: Ms Arita is a 75 year old female with PMHx of oxygen-dependent COPD who is supposed to be on 2L of O2 by [place] at home, but had dismissed her respiratory company in 2019 and has not been using oxygen ever since, suggestion of diastolic dysfunction and pulmonary hypertension in 2019, hypertension, CKD stage IV with baseline Cr of 1.9-2.0, who was admitted to [facility] hospitalist service on 04/14/21 after being sent in by the PCP for shortness of breath, low oxygen saturations. She just had a negative MPI stress test and an echo revealing preserved EF and no wall motion abnormalities on 04/12/21. However, in the ED, she had a mildly elevated troponin (0.08), EKG changes, and a bedside echo, which revealed EF closer to 20%, per ED provider who performed it. [facility] cardi[place] transfer was sought at that time, but no beds were available. Recommendations were made to rule out PE, which we did with a low probaility VQ scan. We also ensured that her BLE venous doppler was negative for a DVT as she does have 2+ pitting edema of her legs. The patient was systemically anticoagulation with lovenox. Overnight, the patient did not have any arrhythmic events. Her BP's were somewhat low overnight (80s systolic), but have come up to 130s without intervention. She was seen by Dr Blackburn of cardiology who felt the patient would benefit from a right heart cath and possibly also a left heart cath, if her EF was confirmed to be depressed by a formal echo, which unfortunately we did not have available today. Her EKG is continuing to show diffuse ST-T changes, nonspecific. Her troponin I is now 0.06. We are treating the patient with a furosemide infusion, continuing systemic lovenox, and added aspirin, per [facility] cardiology recommendations. Unfortunately, the patient is declining a lara catheter, so her urinary output is not up-to-date. The patient is requiring 1.5 L of O2 at rest. Her case was again reviewed with [facility] cardiology team who accepted the patient in transfer under the care of Dr Kaur. The patient is in agreement with transfer. The patient will need to be re-qualified for oxygen on discharge. Total Critical Care Time 60 minutes. For list of current inpatient medications, please, see MAR. THe list of medications below reflects the patient's outpatient prescriptions. Home Meds and New Rx's Prescriptions: No Action citalopram 10 mg tablet 10 mg PO DAILY Qty: 90 RF: 3 furosemide 20 mg tablet 40 mg PO QAM Qty: 180 RF: 3 levalbuterol tartrate [Xopenex HFA] 45 mcg/actuation HFA aerosol inhaler 1 - 2 puff Inhalation Q4H PRN Qty: 1 RF: 3 metoprolol tartrate 25 mg tablet 25 mg PO BID Qty: 180 RF: 3 lidocaine [LC-5] 45 GM cream 1 film Topical 2-4 times daily PRN Qty: 1 RF: 3 folic acid 1 mg tablet 1 mg PO DAILY Qty: 90 RF: 3 mirtazapine 7.5 mg tablet 7.5 mg PO HS Qty: 90 RF: 3 atorvastatin 10 mg tablet 10 mg PO DAILY Qty: 90 RF: 3 budesonide-formoterol [Symbicort] 160-4.5 mcg/actuation HFA aerosol inhaler 2 puff Inhalation BID Qty: 3 RF: 3 Incruse Ellipta 62.5 mcg/actuation blister with device 1 inh Inhalation DAILY Qty: 3 RF: 3 Discharge Instructions Referrals: Soledad Blackburn MD [ [facility] STAFF PHYSICIAN] - Activity:: Activity as Tolerated Diet:: Low Sodium Discharge Orders Discharge Orders: Discharge Order (Routine); Ordered 04/15/21 Ordered By: Radha Woods DS: Summary Time Spent with Patient providing and/or coordinating discharge services: Greater than 30 minutes Status at Discharge Functional status at discharge: independent ambulation Overall status at discharge: patient is not back to baseline Mental Status: mental status grossly normal Speech and Movement: speech and movement normal Mood: congruent mood Affect: normal affect Exam Narrative Exam Narrative: General: Pleasant elderly female, not cya notic/dyspneic/tachypneic, A&Ox3 HEENT: EOMI, MMM Heart: RRR Lungs: Diminished breath sounds B Abdomen: soft, nontender, nondistended Extremities: 2-3+ BLE edema, chronic venous stasis changes Psych Mental Status: mental status grossly normal Speech and Movement: speech and movement normal Mood: congruent mood Affect: normal affect DS: Data Vitals/I&O Vitals and I&O: Vital Signs Temperature 36.3 C L 04/15/21 08:00 Temperature Source Temporal Artery Scan 04/15/21 08:00 Pulse 79 04/15/21 15:42 Pulse Rhythm Regular 04/15/21 09:17 Pulse 65 04/15/21 09:10 Respiratory Rate 24 04/15/21 09:10 Respiratory Effort 04/15/21 09:17 Respiratory Depth Normal 04/15/21 09:17 Respiratory Pattern Normal 04/15/21 09:17 Blood Pressure 132/78 04/15/21 08:57 Blood Pressure Mean 91 04/15/21 08:57 Blood Pressure Position Supine 04/14/21 23:00 Pulse Oximetry 96 04/15/21 09:10 Oxygen Delivery Method Nasal Cannula 04/15/21 08:00 Oxygen Flow Rate 3 04/15/21 08:00 Pain Level 0 04/14/21 23:00 Intake & Output 04/14/21 04/15/21 04/15/21 23:59 11:59 23:59 Intake Total 520 / 520 220 / 228.292 8.292 / 228.292 Output Total 300 / 300 Balance 220 / 220 220 / 228.292 8.292 / 228.292 Weight 63.8 kg 63.8 kg Intake: IV 520 / 520 8.292 / 8.292 Oral 220 / 220 Output: Urine 300 / 300 Other: Urine Color Yellow Light Candace Urine Appearance Clear Clear Urine Odor None Normal Voiding Methods Bedside Commode Bedside Commode Data Completed and Pending Completed studies during hospitalization [Text1]: CT chest w/o contrast: Bilateral mild upper lobe ground-glass opacities could represent viral pneumonitis. Correlation with COVID status is recommended.Stable small bilateral pulmonary nodules. CXR PA/lateral: Right basilar atelectasis. Tiny left pleural effusion. No visible infiltrate. Venous doppler BLE's: Negative bilateral lower extremity ultrasound. No evidence of DVT. VQ scan: 1. Low probability VQ examination. Ventilation findings of COPD and some element of air trapping.... Labs on day of discharge: Labs from last 24 hours 04/15/21 04/15/21 04/14/21 06:05 06:05 23:50 WBC RBC Hgb Hct MCV MCH MCHC RDW Plt Count MPV Immature Gran % Neutrophils % Lymphocytes % Monocytes % Eosinophils % Basophils % Nucleated RBC % Absolute Neutrophils Absolute Lymphocytes Absolute Monocytes Absolute Eosinophils Absolute Basophils PT INR APTT D-Dimer VBG pH VBG pCO2 VBG pO2 VBG HCO3 VBG Total CO2 VBG O2 Saturation VBG Base Excess Sodium 144 Potassium 4.3 Chloride 104 Carbon Dioxide 44.8 H Anion Gap -4.8 L BUN 28 H Creatinine 2.0 H Estimated GFR/1.73 m2 24.22 Glucose 130 H Calcium 8.7 Total Bilirubin AST ALT Alkaline Phosphatase Troponin I 0.06 0.07 H NT-Pro-B Natriuret Pep Total Protein Albumin Lipase TSH Free T4 COVID-19 Source SARS-CoV-2 (PCR) 04/14/21 04/14/21 04/14/21 20:28 20:28 19:17 WBC RBC Hgb Hct MCV MCH MCHC RDW Plt Count MPV Immature Gran % Neutrophils % Lymphocytes % Monocytes % Eosinophils % Basophils % Nucleated RBC % Absolute Neutrophils Absolute Lymphocytes Absolute Monocytes Absolute Eosinophils Absolute Basophils PT 11.1 H INR 1.1 APTT 23.4 D-Dimer 1372 H VBG pH VBG pCO2 VBG pO2 VBG HCO3 VBG Total CO2 VBG O2 Saturation VBG Base Excess Sodium Potassium Chloride Carbon Dioxide Anion Gap BUN Creatinine Estimated GFR/1.73 m2 Glucose Calcium Total Bilirubin AST ALT Alkaline Phosphatase Troponin I NT-Pro-B Natriuret Pep Total Protein Albumin Lipase TSH Free T4 COVID-19 Source NASOPHARYX SARS-CoV-2 (PCR) Negative 04/14/21 04/14/21 04/14/21 18:58 18:58 18:58 WBC 4.89 RBC 4.83 Hgb 14.5 Hct 49.3 H MCV 102.1 H MCH 30.0 MCHC 29.4 L RDW 15.0 H Plt Count 229 MPV 9.2 Immature Gran % 0.4 Neutrophils % 70.1 Lymphocytes % 16.0 Monocytes % 11.9 Eosinophils % 0.6 Basophils % 1.0 Nucleated RBC % 0 Absolute Neutrophils 3.43 Absolute Lymphocytes 0.78 L Absolute Monocytes 0.58 Absolute Eosinophils 0.03 Absolute Basophils 0.05 PT INR APTT D-Dimer VBG pH 7.39 VBG pCO2 65 H* VBG pO2 113 VBG HCO3 39 H VBG Total CO2 35 H VBG O2 Saturation 98 VBG Base Excess 14 H Sodium 140 Potassium 3.7 Chloride 99 Carbon Dioxide 38.1 H Anion Gap 2.9 L BUN 29 H Creatinine 2.2 H Estimated GFR/1.73 m2 21.70 Glucose 180 H Calcium 8.9 Total Bilirubin 0.8 AST 20 ALT 15 Alkaline Phosphatase 103 Troponin I NT-Pro-B Natriuret Pep 69928 H Total Protein 6.7 Albumin 3.2 L Lipase TSH Free T4 COVID-19 Source SARS-CoV-2 (PCR) 04/14/21 18:58 WBC RBC Hgb Hct MCV MCH MCHC RDW Plt Count MPV Immature Gran % Neutrophils % Lymphocytes % Monocytes % Eosinophils % Basophils % Nucleated RBC % Absolute Neutrophils Absolute Lymphocytes Absolute Monocytes Absolute Eosinophils Absolute Basophils PT INR APTT D-Dimer VBG pH VBG pCO2 VBG pO2 VBG HCO3 VBG Total CO2 VBG O2 Saturation VBG Base Excess Sodium Potassium Chloride Carbon Dioxide Anion Gap BUN Creatinine Estimated GFR/1.73 m2 Glucose Calcium Total Bilirubin AST ALT Alkaline Phosphatase Troponin I 0.08 H* NT-Pro-B Natriuret Pep Total Protein Albumin Lipase 179 TSH 0.28 L Free T4 1.23 COVID-19 Source SARS-CoV-2 (PCR) [facility] Medical History CHF (congestive heart failure) Chronic kidney disease (10/05/16) 02/2019: low-dose SAWYER-I caused hyperkalemia --> d/c'ed! Chronic obstructive lung disease (12/12/11) PFTs 2005: Severe obstruc airway dis; FEV1 24; FEV1/FVC 59% Chronic rhinitis COPD (chronic obstructive pulmonary disease) Depressive disorder (04/14/13) Has tried sertraline (didn't work), Wellbutrin (it made me crazy) Double vision (08/13/14) R eye; EOM [facility] glasses Folate deficiency Hyperlipidemia (12/12/11) 11/2016 labwork: 10-year ASCVD risk ~13.5% --> increased to moderate intensity statin Hyperthyroidism (04/14/13) Long-term Methimazole; stopped in 2011 Hypoalbuminemia IFG (impaired fasting glucose) (12/06/17) Intention tremor (08/29/12) Father had as well Propranolol trial in Aug 2012 Atenolol trial 2016 - works Osteopenia (04/30/13) DEXA 2013 Pulmonary nodules Incidental chest CT 07/2019 --> 6 mo f/u 04/28/2020: STABLE Family History Mother , HF at age 87. Heart disease Father , HF at age 77. Heart disease Sister Heart disease During childhood only? Brother , [place] at age 75. Heart disease Prostate cancer Brother Heart disease Social History Smoking/Tobacco Use Status: Former Tobacco Use Smoking risk assessment performed?: Yes Alcohol Intake: current Alcohol Intake frequency: holidays/special occasions only Drug use: Never Substance use type: does not use Adopted: No Caregiver/Support person: No Foster care: No Household members: none Housing: house Communication Needs: None current occupation: Retired Pets and animals: No Sexually active: No Current gender identity: female What type of physical activity do you participate in: none Seatbelt use: always Do you feel safe at home: Yes Do you feel safe in your relationship?: Yes
[2021-04-15] MEDS: Aspirin E.C. 325 MG TABEC PO (16:29)
[2021-04-15] MEDS: Atorvastatin 10 MG TAB PO (20:39)
[2021-04-15] MEDS: Enoxaparin 60 MG/0.6 ML SYR SC (20:39)
[2021-04-16] VITALS (14 sets, daily range): BP systolic 115–140; BP diastolic 65–78; PULSE 72–116; RESP 17–32; TEMP 35.8; O2SAT 71–98
[2021-04-16 06:40] LABS: Abs Immature Grans 0.01 10^3/uL (0.0-0.06); Absolute Basophil Count 0.04 10^3/uL (0.0-0.2); Absolute Eosinophil Count 0.17 10^3/uL (0.0-0.7); Absolute Lymphocyte Count 0.87 10^3/uL (1.2-3.4); Absolute Monocyte Count 0.54 10^3/uL (0.1-0.8); Absolute Neutrophil Count 2.53 10^3/uL (1.2-6.7); Eosinophils % 4.1; HCT 52.2 % (36.0-46.0); HGB 15.1 g/dL (11.2-15.7); Immature Grans % 0.2; Lymphocytes % 20.9; MCH 30.2 pg (27.0-33.0); MCHC 28.9 % (32.0-36.0); MCV 104.4 fL (80-95); MPV 9.3 fL (8.0-11.0); Neutrophils % 60.8; Nucleated RBC 0 %; Platelet Count 174 10^3/uL (130-400); RDW 14.8 % (11.7-14.6); RDW-SD 57.9 fL; WBC 4.16 10^3/uL (4.4-10.8)
--- NOTE | 2021-04-16 06:43 | NUR.NOTE ---
0630-patient's oxygen found not on patient's face. Sao2's have been in the mid 90's all night as long as pt is in bed but sao2 is now 58%. O2 replaced at 2lpm with sao2 increased to 88% within a few minutes. earlier in the shift, pt got oob still wearing her o2 at 1.5l to go to commode and desatted to 78% even while wearing o2
[2021-04-16 06:54] LABS: Anion Gap -0.8 mmol/L (3-11); BUN 23 mg/dL (7-18); CO2 42.8 mmol/L (21.0-32.0); CREATININE 1.7 mg/dL (0.55-1.02); Chloride 102 mmol/L (98-107); Estimated GFR 29.22 (mL/min/1.73m2); Glucose 95 mg/dL (74-106); Magnesium 2.2 mg/dL (1.8-2.4); Sodium 144 mmol/L (136-145)
[2021-04-16] MEDS: Citalopram 10 MG TAB PO (08:13)
[2021-04-16] MEDS: Aspirin E.C. 81 MG TABEC PO (08:13)
[2021-04-16] MEDS: Folic Acid 1 MG TAB PO (08:13)
[2021-04-16] MEDS: Budesonide/Formoterol 160/4.5 6 GM 60 PUFF INH IH (10:00)
[2021-04-16] MEDS: Umeclidinium 7 CAP INHALER 1 CAP IH (10:33)
== END 2021-04-16 10:15 | disposition short-term general hospital (02) | DRG 291 ==
LOC: ER 21:33 → ICU 22:29
PROVIDERS: Internal Medicine; Admitting Provider Family Medicine; Emergency Provider Student in an Organized Health Care Education/Training Program; PCP Nurse Practitioner Family; Visit Provider Family Medicine
DX: I13.0 Hypertensive heart and chronic kidney disease with heart failure and stage 1 through stage 4 chronic kidney disease, or unspecified chronic kidney disease (principal); I50.21 Acute systolic (congestive) heart failure; J96.01 Acute respiratory failure with hypoxia; N17.9 Acute kidney failure, unspecified; N18.4 Chronic kidney disease, stage 4 (severe); E78.5 Hyperlipidemia, unspecified; J44.9 Chronic obstructive pulmonary disease, unspecified; I87.8 Other specified disorders of veins; E05.90 Thyrotoxicosis, unspecified without thyrotoxic crisis or storm; M85.80 Other specified disorders of bone density and structure, unspecified site; F32.9 Major depressive disorder, single episode, unspecified; E53.8 Deficiency of other specified B group vitamins; R73.01 Impaired fasting glucose; R91.8 Other nonspecific abnormal finding of lung field; Z87.891 Personal history of nicotine dependence; Z20.822 Contact with and (suspected) exposure to COVID-19; R94.31 Abnormal electrocardiogram [ECG] [EKG]; I27.29 Other secondary pulmonary hypertension; Z99.81 Dependence on supplemental oxygen; R74.8 Abnormal levels of other serum enzymes
CPT/HCPCS: 36415; 71250; 78582; 80048; 80053; 82805; 83690; 87635; 93005; 94640; 96361; 96372; 99223; 99291; 71046; 83735; 83880; 84439; 84443; 84484; 85025; 85379; 85610; 85730; 93010; 93970; 99236; J1650; J1940

== ENCOUNTER → 2021-04-15 07:24 | Outpatient (BNVA) | payer MEDICARE, SELFPAY | PROVIDERS: PCP Nurse Practitioner Family; Referring Provider Nurse Practitioner Family; Visit Provider Internal Medicine Cardiovascular Disease | DX: R69 Illness, unspecified (principal) ==

== ENCOUNTER 2021-06-20 19:57 | Outpatient (REF) | payer MEDICARE, SELFPAY ==
[2021-06-20 21:12] LABS: ALT 21 U/L (14-59); AST 32 U/L (15-37); Albumin 3.5 g/dL (3.4-5.0); Alkaline Phosphatase 76 U/L (46-116); Anion Gap 1.4 mmol/L (3-11); BUN 24 mg/dL (7-18); Bilirubin, Total 0.7 mg/dL (0.2-1.0); CO2 42.6 mmol/L (21.0-32.0); CREATININE 1.8 mg/dL (0.55-1.02); Calcium 9.2 mg/dL (8.5-10.1); Chloride 96 mmol/L (98-107); Estimated GFR 27.28 (mL/min/1.73m2); Glucose 114 mg/dL (74-106); NT-proBNP 1571 pg/mL (<300); Potassium 3.2 mmol/L (3.5-5.1); Sodium 140 mmol/L (136-145); TSH (W/Ref FT4) 0.08 uIU/mL (0.36-3.74); Total Protein 6.4 g/dL (6.4-8.2)
[2021-06-20 21:28] LABS: FREE T4 1.63 ng/dL (0.76-1.46)
== END 2021-06-20 19:58 | disposition home or self-care (01) ==
LOC: LBN 19:57
PROVIDERS: PCP Nurse Practitioner Family; Visit Provider Nurse Practitioner Family
DX: E05.90 Thyrotoxicosis, unspecified without thyrotoxic crisis or storm (principal); I50.9 Heart failure, unspecified; N18.9 Chronic kidney disease, unspecified
CPT/HCPCS: 80053; 83880; 84439; 84443